=== PATIENT | male | born 1980 | race Caucasian/White ===

== ENCOUNTER 2018-11-07 18:36 | Inpatient (IN) | payer OTHER ==
[~2018-11-07] VITALS: Ht 157.5 cm; Wt 76.9 kg
[2018-11-07 22:45] VITALS: BP 109/59; PULSE 72; Ht 157.5 cm; Wt 76.9 kg
[2018-11-07] MEDS ORDERED: SOD CHLORIDE 0.9% 1,000 ML IV SCH (23:30)
[2018-11-07] MEDS ORDERED: ONDANSETRON 4 MG INJ IV PRN (23:30)
[2018-11-07] MEDS ORDERED: FLUD0.1T10 PO (23:56)
[2018-11-07] MEDS ORDERED: A VITE PO (23:56)
[2018-11-07] MEDS ORDERED: PRED25 PO (23:56)
[2018-11-07] MEDS ORDERED: LACT20SO2 PO (23:56)
[2018-11-07] MEDS ORDERED: DIVA-16 PO (23:56)
[2018-11-07] MEDS ORDERED: LEVO75TA5 PO (23:56)
[2018-11-07] MEDS ORDERED: BENZ1TAB7 PO (23:56)
[2018-11-07] MEDS ORDERED: DOCU-159 PO (23:56)
[2018-11-07] MEDS ORDERED: OLAN15TA7 PO (23:56)
[2018-11-07] MEDS ORDERED: IRON PO (23:56)
[2018-11-07] MEDS ORDERED: TESTOSTERONE 1% TRANSDERM (23:56)
[2018-11-08] VITALS (9 sets, daily range): BP systolic 113–132; BP diastolic 76–90; PULSE 79–102; RESP 18–19
[2018-11-08] MEDS ORDERED: VANCOMYCIN IV PER PHARMACY XX SCH (00:30)
[2018-11-08] MEDS ORDERED: VANCOMYCIN HCL 1.5 GM in SOD CHLORIDE 0.9% 250 ML IVPB SCH (03:00)
[2018-11-08] MEDS ORDERED: VANCOMYCIN 1 GM 250 ML IVPB SCH (03:00)
[2018-11-08] MEDS ORDERED: DIVA500T15 PO (04:47)
[2018-11-08] MEDS ORDERED: PIPER-TAZO 3.375 GM IV (PMX) 100 ML IVPB SCH (06:00)
[2018-11-08] MEDS: PANTOPRAZOLE 40 MG INJ IV SCH (06:31)
[2018-11-08] MEDS: LEVOTHYROXINE 75 MCG TAB PO SCH (06:33)
[2018-11-08] MEDS ORDERED: OLANZAPINE 5 MG TAB PO SCH (09:00)
[2018-11-08] MEDS: TESTOSTERONE 1% GEL 5 GM PACKET TOP SCH (09:00)
[2018-11-08] MEDS ORDERED: predniSONE 2.5 MG TAB PO SCH (09:00)
[2018-11-08] MEDS: DIVALPROEX (EC) 500 MG TAB PO SCH ×2 (09:03→23:07)
[2018-11-08] MEDS: FLUDROCORTISONE 0.1 MG TAB PO SCH (09:03)
[2018-11-08] MEDS: DOCUSATE SODIUM 100 MG CAP PO SCH (09:04)
[2018-11-08] MEDS: BENZTROPINE 1 MG TAB PO SCH ×2 (09:04→23:07)
[2018-11-08] MEDS ORDERED: POTASSIUM CHLORIDE (SR) 20 MEQ TAB PO STA ×2 (09:16→12:39)
--- NOTE | 2018-11-08 12:42 | QN ---
Documentation Comment seen and examined VESNA SERNA MD Nov 08, 2018 12:42
--- NOTE | 2018-11-08 12:47 | QN ---
Documentation Comment pt ruefusing iv very belligerent VESNA SERNA MD Nov 08, 2018 12:47
[2018-11-08] MEDS: CEPHALEXIN 250 MG CAP PO SCH ×2 (13:59→23:08)
--- NOTE | 2018-11-08 14:36 | HP ---
DATE OF ADMISSION: 11/07/2018 REASON FOR ADMISSION: Transferred from [facility] secondary to hypotension. HISTORY OF PRESENTING ILLNESS: This is a 38-year-old male with a past medical history of development al delay and mental retardation, schizoaffective disorder as well as bipolar disorder. 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 The patient was admitted in [facility] ostal somewhere in 10/2018 secondary to NAOMI, UTI. The patient was discharged home with p.o. antibi otics; however the patient returned to [facility] as he was tachycardic with a low blood pre ssure and there was concern the patient has addisonian crisis. The patient was treated with IV hydro cortisone and blood pressure stabilized. He was also hypokalemic on admission and was transferred to [facility] due to insurance reasons. Currently, the patient has been very bellige rent, not answering any questions. The patient was noted to have creatinine of 1.16 on 11/06/2018 an d received vancomycin and Zosyn. PAST MEDICAL HISTORY: 1. Developmental delay. 2. Mental retardation. 3. Schizoaffective disorder. 4. Giovanni disease. 5. Bipolar disorder. 6. Hypothyroidism. 7. Urinary retention. ALLERGIES: NONE. PAST SURGICAL HISTORY: None. MEDICATIONS TAKING AT HOME: 1. Benztropine 1 mg b.i.d. 2. Valproate 500 b.i.d. 3. Olanzapine 10 b.i.d. 4. Lactulose 45. 5. Colace. 6. Fludrocortisone 0.1. 7. Levothyroxine 75. 8. Prednisone 5. 9. Testosterone 50 mg transdermal. SOCIAL HISTORY: No history of smoking, alcohol or any drug use. Currently lives in a home in [facility]. He also has a family who is actively involved. FAMILY HISTORY: Noncontributory. REVIEW OF SYSTEMS: The patient currently denies any abdominal pain, nausea, vomiting, diarrhea. Den ied any chest pain, any shortness of breath. The patient has not urinated since this morning. Denie s any hematemesis, any melena or any bright red blood per rectum. PHYSICAL EXAMINATION: VITAL SIGNS: Currently, blood pressure 132/77, temperature 99.2, heart rate 81, respirations 18. GENERAL: The patient is awake, alert; however has been refusing to do the exam. The patient has bee n belligerent and he is using F words and bitch words. The patient refused me to examine him. LABORATORY DATA: Showed sodium 148, potassium 3.3, chloride 106, bicarbonate 20, BUN of 23, creatini ne 2.15, glucose 143. White count of 13.1, hemoglobin 13.4, platelet count 196. UA is currently neg ative. ASSESSMENT AND PLAN: A 38-year-old male with: 1. Hypotension, tachycardia, could be secondary to sepsis secondary to urinary tract infection, rule out adrenal addisonian crisis. 2. Leukocytosis. 3. Acute renal failure, likely secondary to combination of obstruction since the patient has not uri nated/combination of prerenal/the patient was given antibiotic, vancomycin and Zosyn. 4. Hypokalemia. 5. Metabolic acidosis. 6. History of schizophrenia. 7. History of developmental delay. 8. Mental retardation. PLAN: At this period of time, the patient is admitted to telemetry; however, the patient has been re fusing all the medications. We will hold vancomycin and Zosyn currently due to renal toxicity. The patient was advised to have Ramirez catheter, but patient has been refusing. We will continue the irma ent on fludrocortisone, prednisone and levothyroxine. We will also call the endocrine consultation. Rest of the treatment will depend on the patient's hospitalization course. Dictated By: VESNA WOLF/MOOSE Conf#: [id number] DID#: [id number] CC: HANK KAISER MD;*EndCC*
--- NOTE | 2018-11-08 15:50 | PSY ---
Date/Time of Note Date/Time of Note DATE: 11/08/18 TIME: 15:48 Psychiatric Subjective Eval Consent Pt consented to telemedicine: No Subjective Evaluation Patient location: inpatient History of present illness Patient is a 38-year-old male with a past medical history of developmental delay and mental retardation, admitted to the hospital for nausea vomiting. On a [id number] evaluation condition, patient is very agitated using obscenities he is screaming he is yelling difficult to redirect. patient threw a phone set up and charger at the interviewer yelling "get out of my room, get out of my room, I will F u". Patient has poor impulse control and poor coping skills, difficult to redirect. Verbal de-escalation ineffective. Explained risk and benefits of me dication but patient cannot process information Past psychiatric history Long history of mental illness Hospitalization: other Allergies: Coded Allergies: No Known Allergy (Unverified , 11/08/18) Substance Abuse Substance abuse history: No Prior substance abuse treatmen: No Social History Marital status: other DPA/Conservatorship: No Psychiatric Objective Eval Review of Systems: Review of Systems: Not Applicable Physical Examination: Physical Examination: Not Applicable Appetite: Adequate Energy: Adequate Interest: Adequate Mental Status Examination: Appearance: Disheveled Eye Contact: Fair Psychomotor Activity: Agitated Behavior: Hostile Speech: Loud AFFECT: Anxious Mood: Irritable Though Process: Linear Thought Content: Normal Orientation: x4 Insight: Severe Judgement: Severe Attention Span: Distractible Laboratory Results Laboratory Tests Test 11/08/18 00:30 11/08/18 00:45 Urine Color YELLOW Urine Clarity CLEAR Urine pH 5.0 Urine Specific [place] 1.012 Urine Ketones NEGATIVE mg/dL Urine Nitrite NEGATIVE mg/dL Urine Bilirubin NEGATIVE mg/dL Urine Urobilinogen NEGATIVE mg/dL Urine Leukocyte Esterase NEGATIVE Lucretia/ul Urine Microscopic RBC 4 /HPF Urine Microscopic WBC 2 /HPF Urine Hemoglobin NEGATIVE mg/dL Urine Glucose 1+ mg/dL Urine Total Protein 1+ mg/dl White Blood Count 13.1 10^3/ul Red Blood Count 3.68 10^6/ul Hemoglobin 11.4 g/dl Hematocrit 34.3 % Mean Corpuscular Volume 93.2 fl Mean Corpuscular Hemoglobin 31.0 pg Mean Corpuscular Hemoglobin Concent 33.2 g/dl Red Cell Distribution Width 12.2 % Platelet Count 196 10^3/UL Mean Platelet Volume 10.8 fl Immature Granulocytes % 0.600 % Neutrophils % 86.0 % Lymphocytes % 6.5 % Monocytes % 6.7 % Eosinophils % 0.0 % Basophils % 0.2 % Nucleated Red Blood Cells % 0.0 /100WBC Immature Granulocytes # 0.080 10^3/ul Neutrophils # 11.3 10^3/ul Lymphocytes # 0.9 10^3/ul Monocytes # 0.9 10^3/ul Eosinophils # 0.0 10^3/ul Basophils # 0.0 10^3/ul Nucleated Red Blood Cells # 0.0 10^3/ul Sodium Level 148 mmol/L Potassium Level 3.3 mmol/L Chloride Level 116 mmol/L Carbon Dioxide Level 20 mmol/L Anion Gap 12 Blood Urea Nitrogen 23 mg/dl Creatinine 2.15 mg/dl Est Glomerular Filtrat Rate mL/min 35 mL/min Glucose Level 143 mg/dl Calcium Level 9.6 mg/dl Assessment and Plan Assessment/Diagnosis Diagnosis Schizoaffective disorder bipolar type Recommendation/Plan Medication Management Continue current medications, increase Zyprexa from 10 mg to 50 mg, continue Depakote 500 mg twice a day, benztropine 1 mg daily, Thorazine 50 mg every 6 hours as needed agitation Psychotherapy Provide supportive therapy Discharge Disposition: Other Legal Status: Voluntary (Does not meets criteria for 5150 hold) WAYNE AARON NP Nov 08, 2018 15:50
--- NOTE | 2018-11-08 19:59 | CONS ---
DATE OF ADMISSION: 11/07/2018 DATE OF CONSULTATION: 11/08/2018 TYPE OF CONSULTATION: Infectious disease. REASON FOR CONSULTATION: Antibiotic management. HISTORY OF PRESENT ILLNESS: Tavo Fisher is a 38-year-old male transferred from [facility] with hypotension. His past problems include: 1. History of developmental delay and mental retardation. 2. Schizoaffective disorder as well as bipolar disorder. 3. 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 He was seen and admitted in 10/2018 to [facility] with acute marla al insufficiency and discharged on p.o. antibiotics. He was tachycardic, had low blood pressure when he came back to [place] and was in addisonian crisis. The patient was treated with IV hydrocorti sone. Blood pressure stabilized. He was hypokalemic and was transferred to [facility]. Th e patient has been belligerent, not answering questions. He has received vancomycin and Zosyn. The patient also has urinary retention. PAST MEDICAL HISTORY: Operations as outlined. FAMILY HISTORY: Noncontributory. SOCIAL HISTORY: He lives at home in [place]. FAMILY HISTORY: Noncontributory. SOCIAL HISTORY: He does not smoke, drink or abuse drugs. ALLERGIES: NONE TO PENICILLIN, SULFA OR FOODS. MEDICATIONS: Per chart. REVIEW OF SYSTEMS: As per HPI. PHYSICAL EXAMINATION: GENERAL: The patient is a 38-year-old male. VITAL SIGNS: Stable. He is afebrile. SKIN: Without generalized rash. HEENT: Within normal limits. NECK: Supple. LYMPH NODES: None palpable. CHEST: Decreased breath sounds at the bases. HEART: Without murmur or gallop. ABDOMEN: Soft, nontender. EXTREMITIES: Without cyanosis, clubbing or edema. RECTAL AND GENITAL: Deferred. NEUROLOGIC: The patient is belligerent, difficult to evaluate. ANCILLARY LABORATORY DATA: His white count is 13.1, hemoglobin 13.4, platelet count 196. Urinalysis is negative. BUN and creatinine is 23/2.15. IMPRESSION AND PLAN: Currently, the patient is hypotensive, tachycardic, probably septic. His urine is negative for nitrite and leukocyte esterase. Imaging studies: Low lung volumes, bibasilar airsp vielka opacities representing atelectasis or pneumonia, small left pleural effusion. We will continue h im on current therapy and await results of cultures. I will dictate my findings to Dr. Acevedo. Dictated By: HANK KAISER MD, JD/MOOSE Conf#: [id number] DID#: [id number] CC: VESNA ACEVEDO;*EndCC*
[2018-11-08] MEDS: OLANZAPINE 5 MG TAB PO SCH (23:07)
[2018-11-09] MEDS ORDERED: VANCOMYCIN 1 GM 250 ML IVPB SCH (03:00)
[2018-11-09] MEDS: PANTOPRAZOLE 40 MG INJ IV SCH (05:03)
[2018-11-09] MEDS: CEPHALEXIN 250 MG CAP PO SCH ×2 (05:43→14:00)
[2018-11-09] MEDS: LEVOTHYROXINE 75 MCG TAB PO SCH (07:00)
[2018-11-09] MEDS: TESTOSTERONE 1% GEL 5 GM PACKET TOP SCH (09:00)
[2018-11-09] MEDS: DOCUSATE SODIUM 100 MG CAP PO SCH (11:31)
[2018-11-09] MEDS: BENZTROPINE 1 MG TAB PO SCH ×2 (11:31→21:16)
[2018-11-09] MEDS: predniSONE 5 MG TAB PO SCH (11:31)
[2018-11-09] MEDS: DIVALPROEX (EC) 500 MG TAB PO SCH ×2 (11:31→21:16)
[2018-11-09] MEDS: FLUDROCORTISONE 0.1 MG TAB PO SCH (11:31)
[2018-11-09 11:53] VITALS: BP 124/83; PULSE 105
[2018-11-09] MEDS: ACETAMINOPHEN 325 MG TAB PO PRN (12:00)
[2018-11-09] MEDS: OLANZAPINE 5 MG TAB PO SCH ×2 (12:19→22:15)
[2018-11-09 14:00] VITALS: BP 144/86; PULSE 86; RESP 20
--- NOTE | 2018-11-09 16:18 | CONS ---
Assessment/Plan Assessment/Plan Hospital Course (Demo Recall) Patient is sleeping, looks comfortable, had fever of 100.8 this afternoon. WBC yesterday 13.1 with neutrophils 86 BUN 23 creatinine 2.15 Urinalysis was negative for leukocyte Estrace or nitrite Blood cultures negative urine culture consistent with contaminant Chest x-ray on admission revealed bibasilar airspace RTAS opacities representing atelectasis or pneumonia with small right pleural effusion Antimicrobials: Keflex Physical examination: Chronically ill-appearing middle-aged man in no distress head atraumatic normocephalic neck is supple chest rise symmetrical breath sounds diminished bases heart S1-S2 abdomen distended, bowel sounds present extremities with bilateral lower extremities edema Assessment: 1. Sepsis, present on admission 2. Pneumonia 3. Acute renal failure, possibly retention 4. Schizophrenia 5. Mental retardation 6. Medical noncompliance Plan: Patient refused IV access establishment, refusing bladder scan and is not urinating. We will will discontinue Keflex and start him on Augmentin and doxycycline, follow psychiatric recommendations. Patient will benefit from Ramirez placement and IV antibiotics Consultation Date/Type/Reason Admit Date/Time Nov 07, 2018 at 22:29 Initial Consult Date Type of Consult id Date/Time of Note DATE: 11/09/18 TIME: 16:18 Exam/Review of Systems Exam Vitals Vital Signs Date Temp Pulse Resp B/P (MAP) Pulse Ox O2 O2 Flow FiO2 Time Delivery Rate 11/09/18 100.8 105 124/83 99 Room Air 11:53 (97) 11/08/18 19 20:00 Intake and Output 11/08/18 11/08/18 11/09/18 1515:00 23:00 07:00 IntakeIntake Total 800 ml 750 ml OutputOutput Total 800 ml BalanceBalance 800 ml -50 ml Results Result Diagram: 11/08/18 0045 11/08/18 0045 Medications Medication Current Medications Benztropine Mesylate (Cogentin) 1 mg BID PO Last administered on 11/09/18at 11:31; Admin Dose 1 MG; Start 11/08/18 at 09:00 Divalproex Sodium (Depakote) 500 mg BID PO Last administered on 11/09/18at 11:31; Admin Dose 500 MG; Start 11/08/18 at 09:00 Docusate Sodium (Colace) 250 mg DAILY PO Last administered on 11/09/18 11:31; Admin Dose 250 MG; Start 11/08/18 at 09:00 Fludrocortisone Acetate (Florinef) 0.1 mg DAILY PO Last administered on 11/09/18 11:31; Admin Dose 0.1 MG; Start 11/08/18 at 09:00 Levothyroxine Sodium (Synthroid) 75 mcg BEFORE BREAKFAST PO Last administered on 11/08/18 06:33; Admin Dose 75 MCG; Start 11/08/18 at 07:00 Testosterone (Androgel) 5 gm DAILY TOP ; Start 11/08/18 at 09:00 Acetaminophen (Tylenol Tab) 650 mg Q6H PRN PO MILD PAIN(1-3)OR ELEVATED TEMP; Start 11/07/18 at 23:30 Ondansetron HCl (Zofran Inj) 4 mg Q6H PRN IV NAUSEA AND/OR VOMITING; Start 11/07/18 at 23:30 Cephalexin (Keflex) 250 mg Q8 PO Last administered on 11/09/18 14:00; Admin Dose 250 MG; Start 11/08/18 at 14:00 Olanzapine (Zyprexa) 15 mg BID PO Last administered on 11/09/18 12:19; Admin Dose 15 MG; Start 11/08/18 at 21:00 Chlorpromazine (Thorazine) 50 mg Q6 PRN IM AGITATION; Start 11/08/18 at 16:00 Prednisone (Prednisone) 5 mg DAILY PO Last administered on 11/09/18 11:31; Admin Dose 5 MG; Start 11/09/18 at 10:30 Pantoprazole (Protonix Tab) 40 mg DAILY@06 PO ; Start 11/10/18 at 06:00 RENO KAYE NP Nov 09, 2018 16:18
--- NOTE | 2018-11-09 16:37 | PN ---
Date/Time of Note Date/Time of Note DATE: 11/09/18 TIME: 16:37 Assessment/Plan VTE Prophylaxis Risk score (from Ns)>0 risk: 2 SCD applied (from [facility]): No SCD contraindicated: low risk/ambulating Pharmacological prophylaxis: NA/contraindicated Pharm contraindication: low risk/ambulating Lines/Catheters IV C[facility]ter Type (from [facility]): Peripheral IV Assessment/Plan Assessment/Plan 38-year-old male with: 1. Hypotension, tachycardia, could be secondary to sepsis secondary to urinary tract infection,/pneumonia 2. Leukocytosis> improved. 3. Acute renal failure, likely secondary to combination of obstruction since the patient has not urinated/combination of prerenal/post the patient was given antibiotic, vancomycin and Zosyn. 4. Hypokalemia. 5. Metabolic acidosis. 6. History of schizophrenia. 7. History of developmental delay. 8. Mental retardation. Plan - Spoke to mother to talk to patient about compliance as refusing treatment - will start with po abx meanwhile per ID - IV fluids also refused - stat Zuñiga - Recheck labs> pt has been refusing - pscy meds per Pscy - GI/DVT PROPHYLAXSIS Result Diagram: 11/08/18 0045 11/08/18 0045 Subjective 24 Hr Interval Summary Free Text/Dictation pt refusing zuñiga abdominal distension pt was very belligernt yesterday, using bad words fevers 100.1 Exam/Review of Systems Exam Vitals Vital Signs Date Temp Pulse Resp B/P (MAP) Pulse Ox O2 O2 Flow FiO2 Time Delivery Rate 11/09/18 100.8 105 124/83 99 Room Air 11:53 (97) 11/08/18 19 20:00 Intake and Output 11/08/18 11/08/18 11/09/18 1515:00 23:00 07:00 IntakeIntake Total 800 ml 750 ml OutputOutput Total 800 ml BalanceBalance 800 ml -50 ml Exam refused exam Medications Medication Current Medications Benztropine Mesylate (Cogentin) 1 mg BID PO Last administered on 11/09/18at 11:31; Admin Dose 1 MG; Start 11/08/18 at 09:00 Divalproex Sodium (Depakote) 500 mg BID PO Last administered on 11/09/18at 11:31; Admin Dose 500 MG; Start 11/08/18 at 09:00 Docusate Sodium (Colace) 250 mg DAILY PO Last administered on 11/09/18 11:31; Admin Dose 250 MG; Start 11/08/18 at 09:00 Fludrocortisone Acetate (Florinef) 0.1 mg DAILY PO Last administered on 11/09/18 11:31; Admin Dose 0.1 MG; Start 11/08/18 at 09:00 Levothyroxine Sodium (Synthroid) 75 mcg BEFORE BREAKFAST PO Last administered on 11/08/18 06:33; Admin Dose 75 MCG; Start 11/08/18 at 07:00 Testosterone (Androgel) 5 gm DAILY TOP ; Start 11/08/18 at 09:00 Acetaminophen (Tylenol Tab) 650 mg Q6H PRN PO MILD PAIN(1-3)OR ELEVATED TEMP; Start 11/07/18 at 23:30 Ondansetron HCl (Zofran Inj) 4 mg Q6H PRN IV NAUSEA AND/OR VOMITING; Start 11/07/18 at 23:30 Olanzapine (Zyprexa) 15 mg BID PO Last administered on 11/09/18 12:19; Admin Dose 15 MG; Start 11/08/18 at 21:00 Chlorpromazine (Thorazine) 50 mg Q6 PRN IM AGITATION; Start 11/08/18 at 16:00 Prednisone (Prednisone) 5 mg DAILY PO Last administered on 11/09/18 11:31; Admin Dose 5 MG; Start 11/09/18 at 10:30 Pantoprazole (Protonix Tab) 40 mg DAILY@06 PO ; Start 11/10/18 at 06:00 Amoxicillin/ Clavulanate Potassium (Augmentin) 500 mg BID PO ; Start 11/09/18 at 21:00 Doxycycline Hyclate (Vibramycin) 100 mg BID PO ; Start 11/09/18 at 21:00 VESNA SERNA MD Nov 09, 2018 16:37
[2018-11-09 20:26] VITALS: BP 131/83; PULSE 98; RESP 19
[2018-11-09] MEDS: AMOXICILLIN/CLAV 500 MG TAB PO SCH (21:15)
[2018-11-09] MEDS: DOXYCYCLINE 100 MG TAB PO SCH (21:16)
[2018-11-10 02:00] VITALS: BP_SYST 133; BP_SYST 135; BP_DIAS 68; BP_DIAS 76; PULSE 85; PULSE 94; RESP 18
[2018-11-10] MEDS: LEVOTHYROXINE 75 MCG TAB PO SCH (06:18)
[2018-11-10] MEDS: PANTOPRAZOLE (EC) 40 MG TAB PO SCH (06:18)
[2018-11-10] MEDS ORDERED: POTASSIUM CHLORIDE (SR) 20 MEQ TAB PO ONE (06:56)
[2018-11-10 08:09] VITALS: BP 133/86; PULSE 105; RESP 24
[2018-11-10] MEDS: DIVALPROEX (EC) 500 MG TAB PO SCH ×3 (08:38→21:31)
[2018-11-10] MEDS: DOXYCYCLINE 100 MG TAB PO SCH (08:38)
[2018-11-10] MEDS: DOCUSATE SODIUM 100 MG CAP PO SCH ×2 (08:38→09:00)
[2018-11-10] MEDS: BENZTROPINE 1 MG TAB PO SCH ×3 (08:39→21:31)
[2018-11-10] MEDS: AMOXICILLIN/CLAV 500 MG TAB PO SCH (08:39)
[2018-11-10] MEDS: predniSONE 5 MG TAB PO SCH (08:39)
[2018-11-10] MEDS: OLANZAPINE 5 MG TAB PO SCH ×3 (08:39→21:31)
[2018-11-10] MEDS ORDERED: predniSONE 5 MG TAB PO SCH (09:00)
[2018-11-10] MEDS: TESTOSTERONE 1% GEL 5 GM PACKET TOP SCH (09:38)
[2018-11-10] MEDS: FLUDROCORTISONE 0.1 MG TAB PO SCH (09:38)
[2018-11-10] MEDS: ACETAMINOPHEN 325 MG TAB PO PRN (09:38)
[2018-11-10] MEDS ORDERED: SOD CHLORIDE 0.9% 500 ML IV ONE (10:00)
[2018-11-10] MEDS ORDERED: DEXTROSE 5% 1,000 ML IV SCH (10:00)
[2018-11-10] MEDS: CHLORPROMAZINE 25 MG INJ IM PRN (10:54)
--- NOTE | 2018-11-10 13:15 | CONS ---
Assessment/Plan Assessment/Plan Hospital Course (Demo Recall) Patient has IV line established, he is getting IV fluids, still spiking fevers with a T-max of 102.2 this morning. He is urinating. WBC today 6.7 no shift no bands BUN 23 creatinine 3.17. Blood cultures since admission negative. Chest x-ray on admission revealed bibasilar airspace RTAS opacities representing atelectasis or pneumonia with small right pleural effusion Antimicrobials: Keflex Physical examination: Chronically ill-appearing middle-aged man in no distress head atraumatic normocephalic neck is supple chest rise symmetrical breath sounds diminished bases heart S1-S2 abdomen distended, bowel sounds present extremities with bilateral lower extremities edema Assessment: 1. Sepsis, present on admission 2. Pneumonia 3. Acute renal failure, possibly retention 4. Schizophrenia 5. Mental retardation 6. Medical noncompliance Plan: We will change antibiotics to vancomycin and meropenem, but will try to send urine culture, order chest x-ray in a.m. Consultation Date/Type/Reason Admit Date/Time Nov 07, 2018 at 22:29 Initial Consult Date Type of Consult id Date/Time of Note DATE: 11/10/18 TIME: 13:14 Exam/Review of Systems Exam Vitals Vital Signs Date Temp Pulse Resp B/P (MAP) Pulse Ox O2 O2 Flow FiO2 Time Delivery Rate 11/10/18 102.2 09:38 11/10/18 105 24 133/86 93 08:09 (102) 11/09/18 Room Air 11:53 Intake and Output 11/09/18 11/09/18 11/10/18 1515:00 23:00 07:00 IntakeIntake Total 480 ml 118 ml OutputOutput Total 150 ml 650 ml BalanceBalance 480 ml -150 ml -532 ml Results Result Diagram: 11/10/18 0433 11/10/18 0433 Results 24hrs Laboratory Tests Test 11/09/18 21:58 11/10/18 04:33 Sodium Level 149 H 150 H Potassium Level 3.5 2.9 *L Chloride Level 113 H 120 H Carbon Dioxide Level 22 21 Anion Gap 14 H 9 # Blood Urea Nitrogen 22 H 23 H Creatinine 3.25 #H 3.17 H Est Glomerular Filtrat Rate mL/min 22 L 22 L Glucose Level 92 # 101 Calcium Level 8.9 9.0 White Blood Count 6.7 # Red Blood Count 3.27 L Hemoglobin 10.3 L Hematocrit 31.9 L Mean Corpuscular Volume 97.6 Mean Corpuscular Hemoglobin 31.5 Mean Corpuscular Hemoglobin Concent 32.3 Red Cell Distribution Width 12.4 Platelet Count 159 Mean Platelet Volume 10.3 Immature Granulocytes % 0.300 Neutrophils % 59.7 Lymphocytes % 25.5 Monocytes % 13.8 H Eosinophils % 0.4 Basophils % 0.3 Nucleated Red Blood Cells % 0.0 Immature Granulocytes # 0.020 Neutrophils # 4.0 Lymphocytes # 1.7 Monocytes # 0.9 Eosinophils # 0.0 Basophils # 0.0 Nucleated Red Blood Cells # 0.0 Phosphorus Level 3.9 Magnesium Level 1.9 Medications Medication Current Medications Benztropine Mesylate (Cogentin) 1 mg BID PO Last administered on 11/10/18 08:39; Admin Dose 1 MG; Start 11/08/18 at 09:00 Divalproex Sodium (Depakote) 500 mg BID PO Last administered on 11/10/18 08:38; Admin Dose 500 MG; Start 11/08/18 at 09:00 Docusate Sodium (Colace) 250 mg DAILY PO Last administered on 11/10/18 08:38; Admin Dose 250 MG; Start 11/08/18 at 09:00 Fludrocortisone Acetate (Florinef) 0.1 mg DAILY PO Last administered on 11/10/18 09:38; Admin Dose 0.1 MG; Start 11/08/18 at 09:00 Levothyroxine Sodium (Synthroid) 75 mcg BEFORE BREAKFAST PO Last administered on 11/10/18 06:18; Admin Dose 75 MCG; Start 11/08/18 at 07:00 Testosterone (Androgel) 5 gm DAILY TOP Last administered on 11/10/18 09:38; Admin Dose 5 GM; Start 11/08/18 at 09:00 Acetaminophen (Tylenol Tab) 650 mg Q6H PRN PO MILD PAIN(1-3)OR ELEVATED TEMP Last administered on 11/10/18 09:38; Admin Dose 650 MG; Start 11/07/18 at 23:30 Ondansetron HCl (Zofran Inj) 4 mg Q6H PRN IV NAUSEA AND/OR VOMITING Last administered on 11/10/18 13:04; Admin Dose 4 MG; Start 11/07/18 at 23:30 Olanzapine (Zyprexa) 15 mg BID PO Last administered on 11/10/18 08:39; Admin Dose 15 MG; Start 11/08/18 at 21:00 Chlorpromazine (Thorazine) 50 mg Q6 PRN IM AGITATION Last administered on 11/10/18at 10:54; Admin Dose 50 MG; Start 11/08/18 at 16:00 Prednisone (Prednisone) 5 mg DAILY PO Last administered on 11/10/18at 08:39; Admin Dose 5 MG; Start 11/09/18 at 10:30 Pantoprazole (Protonix Tab) 40 mg DAILY@06 PO Last administered on 11/10/18 06:18; Admin Dose 40 MG; Start 11/10/18 at 06:00 Amoxicillin/ Clavulanate Potassium (Augmentin) 500 mg BID PO Last administered on 11/10/18at 08:39; Admin Dose 500 MG; Start 11/09/18 at 21:00 Doxycycline Hyclate (Vibramycin) 100 mg BID PO Last administered on 11/10/18at 08:38; Admin Dose 100 MG; Start 11/09/18 at 21:00 Dextrose 1,000 ml @ 70 mls/hr [id number] IV ; Start 11/10/18 at 10:00 RENO KAYE NP Nov 10, 2018 13:15
[2018-11-10] MEDS ORDERED: VANCOMYCIN IV PER PHARMACY XX SCH (13:30)
[2018-11-10] MEDS ORDERED: VANCOMYCIN HCL 1.5 GM in SOD CHLORIDE 0.9% 250 ML IVPB SCH (14:30)
[2018-11-10] MEDS: MEROPENEM 500MG/50 ML (PMX) 50 ML IVPB SCH ×2 (14:41→21:31)
[2018-11-10] MEDS ORDERED: POTASSIUM CHLORIDE (SR) 20 MEQ TAB PO STA (16:24)
--- NOTE | 2018-11-10 16:41 | PN ---
Date/Time of Note Date/Time of Note DATE: 11/10/18 TIME: 16:37 Assessment/Plan VTE Prophylaxis Risk score (from Ns)>0 risk: 3 SCD applied (from [facility] [place]): No SCD contraindicated: low risk/ambulating Pharmacological prophylaxis: NA/contraindicated Pharm contraindication: low risk/ambulating Lines/Catheters IV C[facility]ter Type (from [facility]): Peripheral IV Urinary Cath still in place: Yes Reason Cath still needed: urinary retention Assessment/Plan Hospital Course 38-year-old male with: 1. Hypotension, tachycardia, could be secondary to sepsis secondary to urinary tract infection,/pneumonia 2. Leukocytosis> improved. 3. Acute renal failure, likely secondary to combination of obstruction since the patient has not urinated/combination of prerenal/post the patient was given antibiotic, vancomycin and Zosyn. 4. Hypokalemia. 5. Metabolic acidosis. 6. History of schizophrenia. 7. History of developmental delay. 8. Mental retardation. 9 HX ariadna 10 Hypernatremia likely hypovolemic /on fludricortisone 11 Hypokalemia with diarrhoea Plan - Spoke to mother to talk to patient about compliance as refusing treatment, mother at bedside now, electrical maintenance worker also from facility present, tryinto convince pt - po kcl - iv d5 after k given - iv abx per ID - Bld vcx - Ramirez - Endocrine consult - pscy meds per Pscy - GI/DVT PROPHYLAXSIS Result Diagram: Result Diagram: 11/10/18 0433 11/10/18 0433 Results 24hrs Laboratory Tests Test 11/09/18 21:58 11/10/18 04:33 Sodium Level 149 H 150 H Potassium Level 3.5 2.9 *L Chloride Level 113 H 120 H Carbon Dioxide Level 22 21 Anion Gap 14 H 9 # Blood Urea Nitrogen 22 H 23 H Creatinine 3.25 #H 3.17 H Est Glomerular Filtrat Rate mL/min 22 L 22 L Glucose Level 92 # 101 Calcium Level 8.9 9.0 White Blood Count 6.7 # Red Blood Count 3.27 L Hemoglobin 10.3 L Hematocrit 31.9 L Mean Corpuscular Volume 97.6 Mean Corpuscular Hemoglobin 31.5 Mean Corpuscular Hemoglobin Concent 32.3 Red Cell Distribution Width 12.4 Platelet Count 159 Mean Platelet Volume 10.3 Immature Granulocytes % 0.300 Neutrophils % 59.7 Lymphocytes % 25.5 Monocytes % 13.8 H Eosinophils % 0.4 Basophils % 0.3 Nucleated Red Blood Cells % 0.0 Immature Granulocytes # 0.020 Neutrophils # 4.0 Lymphocytes # 1.7 Monocytes # 0.9 Eosinophils # 0.0 Basophils # 0.0 Nucleated Red Blood Cells # 0.0 Phosphorus Level 3.9 Magnesium Level 1.9 Subjective 24 Hr Interval Summary Free Text/Dictation He was having fevers 102 this morning Ramirez was placed but according to the nurses did not have any urine output after questionable however then peed again this morning after Ramirez was removed Sodium trending up k 2.9 And finally agreed for IV fluids and iv abx Exam/Review of Systems Exam Vitals Vital Signs Date Temp Pulse Resp B/P (MAP) Pulse Ox O2 O2 Flow FiO2 Time Delivery Rate 11/10/18 99.5 10:25 11/10/18 105 24 133/86 93 08:09 (102) 11/09/18 Room Air 11:53 Intake and Output 11/09/18 11/09/18 11/10/18 1515:00 23:00 07:00 IntakeIntake Total 480 ml 118 ml OutputOutput Total 150 ml 650 ml BalanceBalance 480 ml -150 ml -532 ml Exam refused exam uses F words abdomen distended Results Results 24hrs Laboratory Tests Test 11/09/18 21:58 11/10/18 04:33 Sodium Level 149 H 150 H Potassium Level 3.5 2.9 *L Chloride Level 113 H 120 H Carbon Dioxide Level 22 21 Anion Gap 14 H 9 # Blood Urea Nitrogen 22 H 23 H Creatinine 3.25 #H 3.17 H Est Glomerular Filtrat Rate mL/min 22 L 22 L Glucose Level 92 # 101 Calcium Level 8.9 9.0 White Blood Count 6.7 # Red Blood Count 3.27 L Hemoglobin 10.3 L Hematocrit 31.9 L Mean Corpuscular Volume 97.6 Mean Corpuscular Hemoglobin 31.5 Mean Corpuscular Hemoglobin Concent 32.3 Red Cell Distribution Width 12.4 Platelet Count 159 Mean Platelet Volume 10.3 Immature Granulocytes % 0.300 Neutrophils % 59.7 Lymphocytes % 25.5 Monocytes % 13.8 H Eosinophils % 0.4 Basophils % 0.3 Nucleated Red Blood Cells % 0.0 Immature Granulocytes # 0.020 Neutrophils # 4.0 Lymphocytes # 1.7 Monocytes # 0.9 Eosinophils # 0.0 Basophils # 0.0 Nucleated Red Blood Cells # 0.0 Phosphorus Level 3.9 Magnesium Level 1.9 Medications Medication Current Medications Benztropine Mesylate (Cogentin) 1 mg BID PO Last administered on 11/10/18 08:39; Admin Dose 1 MG; Start 11/08/18 at 09:00 Divalproex Sodium (Depakote) 500 mg BID PO Last administered on 11/10/18 08:38; Admin Dose 500 MG; Start 11/08/18 at 09:00 Docusate Sodium (Colace) 250 mg DAILY PO Last administered on 11/09/18 11:31; Admin Dose 250 MG; Start 11/08/18 at 09:00 Levothyroxine Sodium (Synthroid) 75 mcg BEFORE BREAKFAST PO Last administered on 11/10/18 06:18; Admin Dose 75 MCG; Start 11/08/18 at 07:00 Testosterone (Androgel) 5 gm DAILY TOP Last administered on 11/10/18 09:38; Admin Dose 5 GM; Start 11/08/18 at 09:00 Acetaminophen (Tylenol Tab) 650 mg Q6H PRN PO MILD PAIN(1-3)OR ELEVATED TEMP Last administered on 11/10/18 09:38; Admin Dose 650 MG; Start 11/07/18 at 23:30 Ondansetron HCl (Zofran Inj) 4 mg Q6H PRN IV NAUSEA AND/OR VOMITING Last administered on 11/10/18 13:04; Admin Dose 4 MG; Start 11/07/18 at 23:30 Olanzapine (Zyprexa) 15 mg BID PO Last administered on 11/10/18 08:39; Admin Dose 15 MG; Start 11/08/18 at 21:00 Chlorpromazine (Thorazine) 50 mg Q6 PRN IM AGITATION Last administered on 11/10/18 10:54; Admin Dose 50 MG; Start 11/08/18 at 16:00 Prednisone (Prednisone) 5 mg DAILY PO Last administered on 11/10/18 08:39; Admi n Dose 5 MG; Start 11/09/18 at 10:30 Pantoprazole (Protonix Tab) 40 mg DAILY@06 PO Last administered on 11/10/18 06:18; Admin Dose 40 MG; Start 11/10/18 at 06:00 Dextrose 1,000 ml @ 70 mls/hr [id number] IV ; Start 11/10/18 at 10:00 Vancomycin HCl (Vanco Iv Per Pharmacy) VANCOMYCIN PER PHARMACY PER PROTOCOL XX ; Start 11/10/18 at 13:30 Meropenem/Sodium Chloride 50 ml @ 100 mls/hr Q12 IVPB Last administered on 11/10/18at 14:41; Admin Dose 100 MLS/HR; Start 11/10/18 at 13:30 Vancomycin HCl 1.5 gm/Sodium Chloride 250 ml @ 83.333 mls/ hr Q36H IVPB ; Start 11/10/18 at 14:30 VESNA SERNA MD Nov 10, 2018 16:41
--- NOTE | 2018-11-10 17:59 | CONS ---
Assessment/Plan Assessment/Plan Problems: (1) Adrenal insufficiency Status: Chronic Comment: Pt. should stop fludricortisone for now. Will monitor to see if needs to restart. W/ fever and tachycardia would increase prednisone from 5 mg/d to 7.5 mg qam, 2.5 mg qpm and monitor BP and HR. Monitor sodium, potassium, blood counts closely. 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 LT4 daily. Check TFT's. (3) Testicular hypofunction Status: Chronic Comment: Cont. daily topical testosterone replacement. Consultation Date/Type/Reason Admit Date/Time Nov 07, 2018 at 22:29 Date of Consultation: Nov 10, 2018 Type of Consult Endocrinology Reason for Consultation Adrenal Insufficiency Requesting Provider: VESNA SERNA MD Date/Time of Note DATE: 11/10/18 TIME: 17:51 Hx of Present Illness 38-year-old male with a past medical history of developmental delay and mental retardation, schizoaffective disorder as well as bipolar disorder. 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 The patient lives with a ibm mainframe developer. The patient was admitted in [facility] somewhere in 10/2018 secondary to NAOMI, UTI. The patient was discharged home with p.o. antibiotics; however the patient returned to [facility] as he was tachycardic with a low blood pressure and there was concern the patient has addisonian crisis. The patient was treated with IV hydrocortisone and blood pressure stabilized. Transferred to [facility]. Since transfer BP has been controlled but pt. has had tachycardia and fever. Prednisone continued orally at 5 mg/d as was fludricortisone. However, last several days sodium increasing and now was 150 mEq/dL and potassium falling and today was 2.9. [facility] d/c'ed and endo consulted. Subjective hx not possible: pt non-verbal (non-cooperative w/ exam or history) Past Medical History Medical History: hypothyroid, other (developmental delay and mental retardation, schizoaffective disorder as well as bipolar disorder, Giovanni disease, hypogonadism) Home Meds Reported Medications Divalproex Sodium* (Divalproex ER*) 500 Mg Tab.er.24h, 500 MG PO BID, #30 TAB.SA 11/08/18 [Tab-A-Davi/iron] No Conflict Check, PO DAILY for Supplement 11/07/18 [Testosterone gel 1%] No Conflict Check, 50 MG TRANSDERM DAILY for Abdomen area for adrenal insuf 11/07/18 Prednisone (Prednisone) 2.5 Mg Tab, 5 MG PO DAILY, TAB 11/07/18 Olanzapine* (Olanzapine*) 15 Mg Tablet, 10 MG PO BID, TAB 11/07/18 Levothyroxine Sodium* (Levothyroxine Sodium*) 75 Mcg Tablet, 75 MCG PO BEFORE B REAKFAST, #30 TAB 11/07/18 Lactulose* (Lactulose*) 20 Gm/30 Ml Solution, 45 ML PO DAILY, ML 11/07/18 Fludrocortisone* (Fludrocortisone*) 0.1 Mg Tablet, 0.1 MG PO DAILY, TAB 11/07/18 Docusate Sodium* (Docusate Sodium*) 100 Mg Capsule, 250 MG PO DAILY, #30 CAP 11/07/18 Benztropine Mesylate* (Benztropine Mesylate*) 1 Mg Tablet, 1 MG PO BID, TAB 11/07/18 Medications Current Medications Benztropine Mesylate (Cogentin) 1 mg BID PO Last administered on 11/10/18 08:39; Admin Dose 1 MG; Start 11/08/18 at 09:00 Divalproex Sodium (Depakote) 500 mg BID PO Last administered on 11/10/18 08:38; Admin Dose 500 MG; Start 11/08/18 at 09:00 Docusate Sodium (Colace) 250 mg DAILY PO Last administered on 11/09/18at 11:31; Admin Dose 250 MG; Start 11/08/18 at 09:00 Levothyroxine Sodium (Synthroid) 75 mcg BEFORE BREAKFAST PO Last administered on 11/10/18 06:18; Admin Dose 75 MCG; Start 11/08/18 at 07:00 Testosterone (Androgel) 5 gm DAILY TOP Last administered on 11/10/18 09:38; Admin Dose 5 GM; Start 11/08/18 at 09:00 Acetaminophen (Tylenol Tab) 650 mg Q6H PRN PO MILD PAIN(1-3)OR ELEVATED TEMP Last administered on 11/10/18 09:38; Admin Dose 650 MG; Start 11/07/18 at 23:30 Ondansetron HCl (Zofran Inj) 4 mg Q6H PRN IV NAUSEA AND/OR VOMITING Last administered on 11/10/18at 13:04; Admin Dose 4 MG; Start 11/07/18 at 23:30 Olanzapine (Zyprexa) 15 mg BID PO Last administered on 11/10/18at 08:39; Admin Dose 15 MG; Start 11/08/18 at 21:00 Chlorpromazine (Thorazine) 50 mg Q6 PRN IM AGITATION Last administered on 11/10/18at 10:54; Admin Dose 50 MG; Start 11/08/18 at 16:00 Prednisone (Prednisone) 5 mg DAILY PO Last administered on 11/10/18at 08:39; Admin Dose 5 MG; Start 11/09/18 at 10:30 Pantoprazole (Protonix Tab) 40 mg DAILY@06 PO Last administered on 11/10/18at 06:18; Admin Dose 40 MG; Start 11/10/18 at 06:00 Vancomycin HCl (Vanco Iv Per Pharmacy) VANCOMYCIN PER PHARMACY PER PROTOCOL XX ; Start 11/10/18 at 13:30 Meropenem/Sodium Chloride 50 ml @ 100 mls/hr Q12 IVPB Last administered on 11/10/18at 14:41; Admin Dose 100 MLS/HR; Start 11/10/18 at 13:30 Vancomycin HCl 1.5 gm/Sodium Chloride 250 ml @ 83.333 mls/ hr Q36H IVPB Last administered on 11/10/18at 16:22; Admin Dose 83.333 MLS/HR; Start 11/10/18 at 14:30 Potassium Chloride 40 meq/ Dextrose 1,020 ml @ 70 mls/hr [id number] IV ; Start 11/10/18 at 18:30 Allergies: Coded Allergies: No Known Allergy (Unverified , 11/08/18) Past Surgical History Past Surgical Hx: no surgical history Family History Significant Family History: no pertinent family hx Social History lives w/ family Alcohol Use: none Smoking Status: Never smoker Drug Use: none Exam/Review of Systems Exam Vitals VS - Last 72 Hours, by Label Date Temp Pulse Resp B/P (MAP) Pulse Ox O2 O2 Flow FiO2 Time Delivery Rate 11/10/18 99.5 10:25 11/10/18 102.2 09:38 11/10/18 102.2 105 24 133/86 93 08:09 (102) 11/10/18 97.8 94 18 135/76 96 02:00 (95) 11/09/18 97.3 98 19 131/83 94 20:26 (99) 11/09/18 99.1 86 20 144/86 96 14:00 (105) 11/09/18 100.8 105 124/83 99 Room Air 11:53 (97) 11/08/18 97.4 85 19 113/82 96 20:00 (92) 11/08/18 98.2 84 18 119/76 97 Room Air 17:45 (90) 11/08/18 102 16:46 11/08/18 79 12:42 11/08/18 99.2 81 18 132/77 93 Room Air 11:39 (95) 11/08/18 81 09:14 11/08/18 98.1 86 18 120/90 94 Room Air 07:10 (100) 11/08/18 82 04:00 11/08/18 97.6 88 18 113/80 97 Room Air 04:00 (91) 11/08/18 102 00:00 11/07/18 97.8 72 109/59 94 22:45 (76) Vital Signs Date Temp Pulse Resp B/P (MAP) Pulse Ox O2 O2 Flow FiO2 Time Delivery Rate 11/10/18 99.5 10:25 11/10/18 105 24 133/86 93 08:09 (102) 11/09/18 Room Air 11:53 Intake and Output 11/09/18 11/09/18 11/10/18 1414:59 22:59 06:59 IntakeIntake Total 480 ml 118 ml OutputOutput Total 150 ml 650 ml BalanceBalance 480 ml -150 ml -532 ml Constitutional: obese; No alert (sleeping), No oriented Respiratory: clear to auscultation, normal air movement Cardiovascular: regular rate and rhythm, nl pulses; No edema, No murmurs/extra sounds, No rub Gastrointestinal: soft, nl liver, spleen, non-tender, bowel sounds; No mass, No rebound or guarding Musculoskeletal: nl extremities to inspection Extremities: normal pulses; No cyanosis, No clubbing, No edema Neurological: lethargic Results Result Diagram: 11/10/18 0433 11/10/18 0433 Results 24hrs Laboratory Tests Test 11/09/18 21:58 11/10/18 04:33 Sodium Level 149 H 150 H Potassium Level 3.5 2.9 *L Chloride Level 113 H 120 H Carbon Dioxide Level 22 21 Anion Gap 14 H 9 # Blood Urea Nitrogen 22 H 23 H Creatinine 3.25 #H 3.17 H Est Glomerular Filtrat Rate mL/min 22 L 22 L Glucose Level 92 # 101 Calcium Level 8.9 9.0 White Blood Count 6.7 # Red Blood Count 3.27 L Hemoglobin 10.3 L Hematocrit 31.9 L Mean Corpuscular Volume 97.6 Mean Corpuscular Hemoglobin 31.5 Mean Corpuscular Hemoglobin Concent 32.3 Red Cell Distribution Width 12.4 Platelet Count 159 Mean Platelet Volume 10.3 Immature Granulocytes % 0.300 Neutrophils % 59.7 Lymphocytes % 25.5 Monocytes % 13.8 H Eosinophils % 0.4 Basophils % 0.3 Nucleated Red Blood Cells % 0.0 Immature Granulocytes # 0.020 Neutrophils # 4.0 Lymphocytes # 1.7 Monocytes # 0.9 Eosinophils # 0.0 Basophils # 0.0 Nucleated Red Blood Cells # 0.0 Phosphorus Level 3.9 Magnesium Level 1.9 Medications Medication Current Medications Benztropine Mesylate (Cogentin) 1 mg BID PO Last administered on 11/10/18 08:39; Admin Dose 1 MG; Start 11/08/18 at 09:00 Divalproex Sodium (Depakote) 500 mg BID PO Last administered on 11/10/18 08:38; Admin Dose 500 MG; Start 11/08/18 at 09:00 Docusate Sodium (Colace) 250 mg DAILY PO Last administered on 11/09/18 11:31; Admin Dose 250 MG; Start 11/08/18 at 09:00 Levothyroxine Sodium (Synthroid) 75 mcg BEFORE BREAKFAST PO Last administered on 11/10/18 06:18; Admin Dose 75 MCG; Start 11/08/18 at 07:00 Testosterone (Androgel) 5 gm DAILY TOP Last administered on 11/10/18 09:38; Admin Dose 5 GM; Start 11/08/18 at 09:00 Acetaminophen (Tylenol Tab) 650 mg Q6H PRN PO MILD PAIN(1-3)OR ELEVATED TEMP Last administered on 11/10/18 09:38; Admin Dose 650 MG; Start 11/07/18 at 23:30 Ondansetron HCl (Zofran Inj) 4 mg Q6H PRN IV NAUSEA AND/OR VOMITING Last administered on 11/10/18 13:04; Admin Dose 4 MG; Start 11/07/18 at 23:30 Olanzapine (Zyprexa) 15 mg BID PO Last administered on 11/10/18 08:39; Admin Dose 15 MG; Start 11/08/18 at 21:00 Chlorpromazine (Thorazine) 50 mg Q6 PRN IM AGITATION Last administered on 11/10/18 10:54; Admin Dose 50 MG; Start 11/08/18 at 16:00 Prednisone (Prednisone) 5 mg DAILY PO Last administered on 11/10/18 08:39; Admin Dose 5 MG; Start 11/09/18 at 10:30 Pantoprazole (Protonix Tab) 40 mg DAILY@06 PO Last administered on 11/10/18 06:18; Admin Dose 40 MG; Start 11/10/18 at 06:00 Vancomycin HCl (Vanco Iv Per Pharmacy) VANCOMYCIN PER PHARMACY PER PROTOCOL XX ; Start 11/10/18 at 13:30 Meropenem/Sodium Chloride 50 ml @ 100 mls/hr Q12 IVPB Last administered on 11/10/18 14:41; Admin Dose 100 MLS/HR; Start 11/10/18 at 13:30 Vancomycin HCl 1.5 gm/Sodium Chloride 250 ml @ 83.333 mls/ hr Q36H IVPB Last administered on 11/10/18 16:22; Admin Dose 83.333 MLS/HR; Start 11/10/18 at 14:30 Potassium Chloride 40 meq/ Dextrose 1,020 ml @ 70 mls/hr [id number] IV ; Start 11/10/18 at 18:30 RIP TOSCANO MD Nov 10, 2018 17:59
[2018-11-10] MEDS: predniSONE 2.5 MG TAB PO SCH ×2 (19:00→21:31)
[2018-11-10 20:16] VITALS: BP 130/84; PULSE 89; RESP 16
[2018-11-10] MEDS: POTASSIUM CHLORIDE 40 MEQ in DEXTROSE 5% 1,000 ML IV SCH (21:31)
[2018-11-11 02:06] VITALS: BP 120/71; PULSE 104; RESP 18
[2018-11-11] MEDS: PANTOPRAZOLE (EC) 40 MG TAB PO SCH (06:00)
[2018-11-11] MEDS: LEVOTHYROXINE 75 MCG TAB PO SCH (06:52)
[2018-11-11 07:58] VITALS: BP 119/60; PULSE 110; RESP 18
[2018-11-11] MEDS: DIVALPROEX (EC) 500 MG TAB PO SCH ×2 (09:00→20:33)
[2018-11-11] MEDS: DOCUSATE SODIUM 100 MG CAP PO SCH (09:00)
[2018-11-11] MEDS: BENZTROPINE 1 MG TAB PO SCH ×2 (09:00→20:33)
[2018-11-11] MEDS: TESTOSTERONE 1% GEL 5 GM PACKET TOP SCH (09:00)
[2018-11-11] MEDS: OLANZAPINE 5 MG TAB PO SCH ×2 (09:00→20:33)
[2018-11-11] MEDS ORDERED: predniSONE 2.5 MG TAB PO SCH ×2 (09:00)
--- NOTE | 2018-11-11 11:27 | CONS ---
Assessment/Plan Assessment/Plan Problems: (1) Adrenal insufficiency Status: Chronic Comment: Change prednisone 7.5 mg qam and 2.5 mg qpm which pt. is refusing to hydrocortisone 20 mg IV qam and 10 mg IV qpm which pt. will receive without refusing. Will change back to oral when pt. more compliant. (2) Testicular hypofunction Status: Chronic Comment: Cont. 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 LT4 and check TFT's today if pt. allows lab draw Consultation Date/Type/Reason Admit Date/Time Nov 07, 2018 at 22:29 Initial Consult Date 11/10/18 Type of Consult Endocrinology Reason for Consultation Adrenal insufficiency Requesting Provider: VESNA SERNA MD Date/Time of Note DATE: 11/11/18 TIME: 11:25 24 HR Interval Summary Constitutional: no complaints (refusing exam) Exam/Review of Systems Exam Vitals VS - Last 72 Hours, by Label Date Temp Pulse Resp B/P (MAP) Pulse Ox O2 O2 Flow FiO2 Time Delivery Rate 11/11/18 102.8 110 18 119/60 91 Room Air 07:58 (79) 11/11/18 100.6 104 18 120/71 90 02:06 (87) 11/10/18 101.2 89 16 130/84 90 20:16 (99) 11/10/18 99.5 10:25 11/10/18 102.2 09:38 11/10/18 102.2 105 24 133/86 93 08:09 (102) 11/10/18 97.8 94 18 135/76 96 02:00 (95) 11/09/18 97.3 98 19 131/83 94 20:26 (99) 11/09/18 99.1 86 20 144/86 96 14:00 (105) 11/09/18 100.8 105 124/83 99 Room Air 11:53 (97) 11/08/18 97.4 85 19 113/82 96 20:00 (92) 11/08/18 98.2 84 18 119/76 97 Room Air 17:45 (90) 11/08/18 102 16:46 11/08/18 79 12:42 11/08/18 99.2 81 18 132/77 93 Room Air 11:39 (95) Vital Signs Date Temp Pulse Resp B/P (MAP) Pulse Ox O2 O2 Flow FiO2 Time Delivery Rate 11/11/18 102.8 110 18 119/60 91 Room Air 07:58 (79) Intake and Output 11/10/18 11/10/18 11/11/18 1515:00 23:00 07:00 IntakeIntake Total 500 ml 400 ml 560 ml BalanceBalance 500 ml 400 ml 560 ml Constitutional: obese; No alert, No oriented Respiratory: clear to auscultation, normal air movement Cardiovascular: regular rate and rhythm, nl pulses; No edema, No murmurs/extra sounds, No rub Gastrointestinal: soft, nl liver, spleen, non-tender, bowel sounds; No mass, No rebound or guarding Musculoskeletal: nl extremities to inspection Extremities: normal pulses; No cyanosis, No clubbing, No edema Neurological: lethargic Results Result Diagram: 11/10/1843211/10/18432 Medications Medication Current Medications Benztropine Mesylate (Cogentin) 1 mg BID PO Last administered on 11/10/18 08:39; Admin Dose 1 MG; Start 11/08/18 at 09:00 Divalproex Sodium (Depakote) 500 mg BID PO Last administered on 11/10/18 08:38; Admin Dose 500 MG; Start 11/08/18 at 09:00 Docusate Sodium (Colace) 250 mg DAILY PO Last administered on 11/09/18 11:31; Admin Dose 250 MG; Start 11/08/18 at 09:00 Levothyroxine Sodium (Synthroid) 75 mcg BEFORE BREAKFAST PO Last administered on 11/10/18 06:18; Admin Dose 75 MCG; Start 11/08/18 at 07:00 Testosterone (Androgel) 5 gm DAILY TOP Last administered on 11/10/18 09:38; Admin Dose 5 GM; Start 11/08/18 at 09:00 Acetaminophen (Tylenol Tab) 650 mg Q6H PRN PO MILD PAIN(1-3)OR ELEVATED TEMP Last administered on 11/10/18 09:38; Admin Dose 650 MG; Start 11/07/18 at 23:30 Ondansetron HCl (Zofran Inj) 4 mg Q6H PRN IV NAUSEA AND/OR VOMITING Last administered on 3/1/19at 13:04; Admin Dose 4 MG; Start 11/07/18 at 23:30 Olanzapine (Zyprexa) 15 mg BID PO Last administered on 11/10/18 08:39; Admin Dose 15 MG; Start 11/08/18 at 21:00 Chlorpromazine (Thorazine) 50 mg Q6 PRN IM AGITATION Last administered on 11/10/18at 10:54; Admin Dose 50 MG; Start 11/08/18 at 16:00 Pantoprazole (Protonix Tab) 40 mg DAILY@06 PO Last administered on 11/10/18at 06:18; Admin Dose 40 MG; Start 11/10/18 at 06:00 Vancomycin HCl (Vanco Iv Per Pharmacy) VANCOMYCIN PER PHARMACY PER PROTOCOL XX ; Start 11/10/18 at 13:30 Meropenem/Sodium Chloride 50 ml @ 100 mls/hr Q12 IVPB Last administered on 11/10/18at 21:31; Admin Dose 100 MLS/HR; Start 11/10/18 at 13:30 Vancomycin HCl 1.5 gm/Sodium Chloride 250 ml @ 83.333 mls/ hr Q36H IVPB Last administered on 11/10/18at 16:22; Admin Dose 83.333 MLS/HR; Start 11/10/18 at 14:30 Potassium Chloride 40 meq/ Dextrose 1,020 ml @ 70 mls/hr [id number] IV Last administered on 11/10/18at 21:31; Admin Dose 70 MLS/HR; Start 11/10/18 at 18:30 Hydrocortisone (Solu-Cortef) 20 mg QAM IV ; Start 11/11/18 at 12:30 Hydrocortisone (Solu-Cortef) 10 mg PC DINNER IV ; Start 11/11/18 at 19:00; Status RIP CAO MD Nov 11, 2018 11:27
--- NOTE | 2018-11-11 11:49 | PN ---
Date/Time of Note Date/Time of Note DATE: 11/11/18 TIME: 11:46 Assessment/Plan VTE Prophylaxis Risk score (from [facility])>0 risk: 3 [place] [facility] [place] contraindicated: other Pharmacological prophylaxis: LMWH Lines/Catheters IV Catheter Type (from [facility]): Peripheral IV Urinary Cath still in place: Yes Reason Cath still needed: urinary retention Assessment/Plan Hospital Course 1. Hypotension, tachycardia, could be secondary to sepsis secondary to urinary tract infection,/pneumonia 2. Leukocytosis> improved. 3. Acute renal failure, likely secondary to combination of obstruction since the patient has not urinated/combination of prerenal/post the patient was given antibiotic, vancomycin and Zosyn. 4. Hypokalemia. 5. Metabolic acidosis. 6. History of schizophrenia. 7. History of developmental delay. 8. Mental retardation. 9. HX Cumby disease 10 Hypernatremia likely hypovolemic /on fludricortisone 11 Hypokalemia with diarrhoea 12.Obesity 13. Non compliance Assessment/Plan -psych. consult engaged -pt refusing treatment PO, - change meds to IV -c/w IV fluids - iv abx per ID - Bld cx negative so far - c/w Zuñiga - Endocrine consult - GI prophylaxis Protonix -DVT PROPHYLAXIS SCD. pt refused so decides to start Lovenox 40 mg po daily after INR drawn -Dr Kaur called at 1930 pm. Result Diagram: 11/10/1843211/10/18432 Subjective 24 Hr Interval Summary Free Text/Dictation not tALKING TO ME Exam/Review of Systems Exam Vitals Vital Signs Date Temp Pulse Resp B/P (MAP) Pulse Ox O2 O2 Flow FiO2 Time Delivery Rate 11/11/18 102.8 110 18 119/60 91 Room Air 07:58 (79) Intake and Output 11/10/18 11/10/18 11/11/18 1515:00 23:00 07:00 IntakeIntake Total 500 ml 400 ml 560 ml BalanceBalance 500 ml 400 ml 560 ml Exam not talking to me Eyes: nl conjunctiva Neck: supple Respiratory: normal air movement Cardiovascular: regular rate and rhythm Genitourinary - Male: nl penis, other (zuñiga) Extremities: normal pulses Medications Medication Current Medications Benztropine Mesylate (Cogentin) 1 mg BID PO Last administered on 11/10/18 08:39; Admin Dose 1 MG; Start 11/08/18 at 09:00 Divalproex Sodium (Depakote) 500 mg BID PO Last administered on 11/10/18 08:38; Admin Dose 500 MG; Start 11/08/18 at 09:00 Docusate Sodium (Colace) 250 mg DAILY PO Last administered on 11/09/18 11:31; Admin Dose 250 MG; Start 11/08/18 at 09:00 Levothyroxine Sodium (Synthroid) 75 mcg BEFORE BREAKFAST PO Last administered on 11/10/18 06:18; Admin Dose 75 MCG; Start 11/08/18 at 07:00 Testosterone (Androgel) 5 gm DAILY TOP Last administered on 11/10/18 09:38; Admin Dose 5 GM; Start 11/08/18 at 09:00 Acetaminophen (Tylenol Tab) 650 mg Q6H PRN PO MILD PAIN(1-3)OR ELEVATED TEMP Last administered on 11/10/18 09:38; Admin Dose 650 MG; Start 11/07/18 at 23:30 Ondansetron HCl (Zofran Inj) 4 mg Q6H PRN IV NAUSEA AND/OR VOMITING Last administered on 11/10/18 13:04; Admin Dose 4 MG; Start 11/07/18 at 23:30 Olanzapine (Zyprexa) 15 mg BID PO Last administered on 11/10/18 08:39; Admin Dose 15 MG; Start 11/08/18 at 21:00 Chlorpromazine (Thorazine) 50 mg Q6 PRN IM AGITATION Last administered on 11/10/18 10:54; Admin Dose 50 MG; Start 11/08/18 at 16:00 Pantoprazole (Protonix Tab) 40 mg DAILY@06 PO Last administered on 11/10/18 06:18; Admin Dose 40 MG; Start 11/10/18 at 06:00 Vancomycin HCl (Vanco Iv Per Pharmacy) VANCOMYCIN PER PHARMACY PER PROTOCOL XX ; Start 11/10/18 at 13:30 Meropenem/Sodium Chloride 50 ml @ 100 mls/hr Q12 IVPB Last administered on 11/10/18 21:31; Admin Dose 100 MLS/HR; Start 11/10/18 at 13:30 Vancomycin HCl 1.5 gm/Sodium Chloride 250 ml @ 83.333 mls/ hr Q36H IVPB Last administered on 11/10/18at 16:22; Admin Dose 83.333 MLS/HR; Start 11/10/18 at 14:30 Potassium Chloride 40 meq/ Dextrose 1,020 ml @ 70 mls/hr [id number] IV Last administered on 11/10/18at 21:31; Admin Dose 70 MLS/HR; Start 11/10/18 at 18:30 Hydrocortisone (Solu-Cortef) 20 mg QAM IV ; Start 11/11/18 at 12:30 Hydrocortisone (Solu-Cortef) 10 mg PC DINNER IV ; Start 11/11/18 at 19:00 JULISSA BELCHER Nov 11, 2018 11:49
[2018-11-11 12:12] VITALS: BP 118/77; PULSE 108; RESP 24
--- NOTE | 2018-11-11 12:53 | CONS ---
Assessment/Plan Assessment/Plan Hospital Course (Demo Recall) ID PROGRESS NOTE CURRENT ABX: DAY # Vanco IV + Merrem + Start Cancidas s/p Keflex 11/10/18 0433 11/10/18 0433 24H INTERVAL SUMMARY * TMax 102.8 today -- High fevers x > 48H w/Urine Cx (+)YEAST on 11/08/18 * WBC normalized * ABX spectrum broadened yesterday to cover concern ASP PNA DIAGNOSTIC IMAGING * 11/08/18 CXR: Low lung volumes with bibasilar air space opacities repres enting atelectasis or pneumonia.Small right pleural effusion. MICRO/OTHER * 11/08/18 URINE CX: (+) YEAST URINE CULTURE Final Organism 1 YEAST,NOT PRATIK ALBICANS COLONY COUNT <10,000 CFU/ml PHYSICAL EXAMINATION: GENERAL: VSS HEENT: AT, NC, anicteric NECK: Supple, CHEST: Equal chest rise bilaterally, without dyspnea on observation HEART: Pulse RRR ABDOMEN: Soft / NT EXTREMITIES: Warm, dry SKIN: No rash, no diaphoresis ID ASSESSMENT 38 yo M admit with: 1. Sepsis, present on admission 2. Pneumonia 3. Acute renal failure, possibly retention 4. Complicated UTI 11/08/18 URINE CX: (+) YEAST URINE CULTURE Final Organism 1 YEAST,NOT PRATIK ALBICANS COLONY COUNT <10,000 CFU/ml 5. Hypothyroid 6. Giovanni's disease 7. Mental retardation 8. 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 Medical noncompliance ABX ALLERGIES: KNDA INVASIVES: PIV CURRENT ABX: DAY # Vanco IV + Merrem + Start Cancidas ID RECOMMENDATIONS/PLAN: 1. Continue current ABX + Start Cancidas for concern progressive YEAST UTI on antibiotics . Consultation Date/Type/Reason Admit Date/Time Nov 07, 2018 at 22:29 Initial Consult Date 11/10/18 Requesting Provider: VESNA SERNA MD Date/Time of Note DATE: 11/11/18 TIME: 12:53 Exam/Review of Systems Exam Vitals Vital Signs Date Temp Pulse Resp B/P (MAP) Pulse Ox O2 O2 Flow FiO2 Time Delivery Rate 11/11/18 102.0 108 24 118/77 82 Room Air 12:12 (91) Intake and Output 11/10/18 11/10/18 11/11/18 1515:00 23:00 07:00 IntakeIntake Total 500 ml 400 ml 560 ml BalanceBalance 500 ml 400 ml 560 ml Results Result Diagram: 11/10/1843211/10/18432 Medications Medication Current Medications Benztropine Mesylate (Cogentin) 1 mg BID PO Last administered on 11/10/18 08:39; Admin Dose 1 MG; Start 11/08/18 at 09:00 Divalproex Sodium (Depakote) 500 mg BID PO Last administered on 11/10/18 08:38; Admin Dose 500 MG; Start 11/08/18 at 09:00 Docusate Sodium (Colace) 250 mg DAILY PO Last administered on 11/09/18 11:31; Admin Dose 250 MG; Start 11/08/18 at 09:00 Testosterone (Androgel) 5 gm DAILY TOP Last administered on 11/10/18 09:38; Admin Dose 5 GM; Start 11/08/18 at 09:00 Acetaminophen (Tylenol Tab) 650 mg Q6H PRN PO MILD PAIN(1-3)OR ELEVATED TEMP Last administered on 11/10/18 09:38; Admin Dose 650 MG; Start 11/07/18 at 23:30 Ondansetron HCl (Zofran Inj) 4 mg Q6H PRN IV NAUSEA AND/OR VOMITING Last administered on 11/10/18 13:04; Admin Dose 4 MG; Start 11/07/18 at 23:30 Olanzapine (Zyprexa) 15 mg BID PO Last administered on 11/10/18 08:39; Admin Dose 15 MG; Start 11/08/18 at 21:00 Chlorpromazine (Thorazine) 50 mg Q6 PRN IM AGITATION Last administered on 11/10/18 10:54; Admin Dose 50 MG; Start 11/08/18 at 16:00 Vancomycin HCl (Vanco Iv Per Pharmacy) VANCOMYCIN PER PHARMACY PER PROTOCOL XX ; Start 11/10/18 at 13:30 Meropenem/Sodium Chloride 50 ml @ 100 mls/hr Q12 IVPB Last administered on 11/10/18 21:31; Admin Dose 100 MLS/HR; Start 11/10/18 at 13:30 Vancomycin HCl 1.5 gm/Sodium Chloride 250 ml @ 83.333 mls/ hr Q36H IVPB Last administered on 11/10/18at 16:22; Admin Dose 83.333 MLS/HR; Start 11/10/18 at 14:30 Potassium Chloride 40 meq/ Dextrose 1,020 ml @ 70 mls/hr [id number] IV Last administered on 11/10/18at 21:31; Admin Dose 70 MLS/HR; Start 11/10/18 at 18:30 Hydrocortisone (Solu-Cortef) 20 mg QAM IV ; Start 11/11/18 at 12:30 Hydrocortisone (Solu-Cortef) 10 mg PC DINNER IV ; Start 11/11/18 at 19:00 Levothyroxine Sodium (Synthroid Iv) 50 mcg DAILY@06 IV ; Start 11/12/18 at 06:00 Pantoprazole (Protonix Iv) 40 mg DAILY@06 IV ; Start 11/12/18 at 06:00 Potassium Chloride 100 ml @ 50 mls/hr Q2H IVPB ; Start 11/11/18 at 13:30; Stop 11/11/18 at 17:29 MANJU BILLINGS NP Nov 11, 2018 12:53
[2018-11-11] MEDS: ACETAMINOPHEN 325 MG TAB PO PRN (13:24)
[2018-11-11] MEDS ORDERED: ACETAMINOPHEN 1000MG/100ML IV 100 ML IVPB PRN (14:00)
[2018-11-11] MEDS: CHLORPROMAZINE 25 MG INJ IM PRN (14:06)
[2018-11-11] MEDS: MEROPENEM 500MG/50 ML (PMX) 50 ML IVPB SCH ×2 (14:53→20:33)
[2018-11-11] MEDS: POTASSIUM CHLORIDE 40 MEQ in DEXTROSE 5% 1,000 ML IV SCH (14:54)
[2018-11-11] MEDS: HYDROCORTISONE 100 MG INJ IV SCH ×2 (15:15→18:43)
[2018-11-11] MEDS ORDERED: CASPOFUNGIN 70 MG in SOD CHLORIDE 0.9% 250 ML IVPB ONE (16:00)
[2018-11-11] MEDS: POTASSIUM CHLORIDE 100 ML IVPB SCH ×2 (16:49→20:33)
[2018-11-11 18:02] VITALS: BP 90/51; PULSE 101; RESP 26
[2018-11-11] MEDS ORDERED: SOD CHLORIDE 0.9% 250 ML IV ONE (19:30)
[2018-11-11 19:41] VITALS: BP 90/54; PULSE 80; RESP 16
[2018-11-11] MEDS ORDERED: NS + KCL 20 MEQ 1,000 ML IV SCH (20:30)
[2018-11-12 01:27] VITALS: BP 103/63; PULSE 70; RESP 16
[2018-11-12] MEDS: LEVOTHYROXINE 100 MCG VIAL IV SCH (05:31)
[2018-11-12] MEDS: PANTOPRAZOLE 40 MG INJ IV SCH (05:31)
[2018-11-12 07:19] VITALS: BP 108/73; PULSE 70; RESP 18
--- NOTE | 2018-11-12 08:51 | PN ---
CHETLUIS CARLOSEFRAINTanishaJULISSA 11/12/18 0851: Date/Time of Note Date/Time of Note DATE: 11/12/18 TIME: 08:51 Assessment/Plan VTE Prophylaxis Risk score (from [facility] [place])>0 risk: 5 SCD applied (from [facility] [place]): No SCD contraindicated: other Pharmacological prophylaxis: LMWH Lines/Catheters IV Catheter Type (from [facility]): Peripheral IV Urinary Cath still in place: No Assessment/Plan Hospital Course 1. Hypotension, tachycardia, could be secondary to sepsis secondary to urinary tract infection,/pneumonia 2. Leukocytosis> improved. 3. Acute renal failure, likely secondary to combination of obstruction since the patient has not urinated/combination of prerenal/post the patient was given antibiotic, vancomycin and Zosyn. 4. Hypokalemia, now hyperkalemia. 5. Metabolic acidosis. 6. History of schizophrenia. 7. History of developmental delay. 8. Mental retardation. 9. HX Zachary disease 10 Hypernatremia likely hypovolemic /on fludricortisone 11 Hypokalemia with diarrhoea, resolved 12.Obesity 13. Non compliance 14. Anemia Assessment/Plan -monitor cr,2.63 - today-psych. consult engaged -pt refusing treatment PO, change meds to IV -c/w IV fluids, remove potassium component due to hyperkalemia -Kayexalate once - iv abx per ID - Bld cx negative so far - difficulties with zuñiga -urology consult dr Kaur - Endocrine consult - GI prophylaxis Protonix -DVT PROPHYLAXIS SCD. pt refused, Lovenox Result Diagram: 11/11/18 1722 11/12/18 0524 Results 24hrs Laboratory Tests Test 11/11/18 17:21 11/11/18 17:22 11/11/18 19:34 11/12/18 05:24 Activated 49.6 H Partial Thromboplast Time Sodium Level 142 144 Potassium Level 3.3 L 5.2 H Chloride Level 112 H 117 H Carbon Dioxide Level 22 18 L Anion Gap 8 9 Blood Urea Nitrogen 19 23 H Creatinine 3.40 H 2.63 H Est Glomerular Filtrat 21 L 28 L Rate mL/min Glucose Level 131 86 # Calcium Level 8.7 7.8 L Phosphorus Level 3.5 Magnesium Level 1.7 White Blood Count 11.2 #H Pending Red Blood Count 3.10 L Pending Hemoglobin 9.5 L Pending Hematocrit 29.0 L Pending Mean Corpuscular Volume 93.5 Pending Mean Corpuscular 30.6 Pending Hemoglobin Mean Corpuscular 32.8 Pending Hemoglobin Concent Red Cell Distribution 12.3 Pending Width Platelet Count 122 #L Pending Mean Platelet Volume 10.5 H Pending Immature Granulocytes % 0.300 Neutrophils % 81.0 H Lymphocytes % 7.4 L Monocytes % 9.0 Eosinophils % 2.1 Basophils % 0.2 Nucleated Red Blood 0.0 Cells % Immature Granulocytes # 0.030 Neutrophils # 9.0 H Lymphocytes # 0.8 Monocytes # 1.0 H Eosinophils # 0.2 Basophils # 0.0 Nucleated Red Blood 0.0 Cells # Thyroid Stimulating 4.560 Hormone (TSH) Free Thyroxine Index 2.93 Thyroxine (T4) 7.0 Triiodothyronine (T3) 41.8 H Uptake Lactic Acid Level 0.6 Random Vancomycin Level 14.1 Subjective 24 Hr Interval Summary Free Text/Dictation shout to leave a room Gastrointestinal: no complaints, pain, blood, constipation, decreased appetite, diarrhea, flatus, nausea, passing stool, vomiting, other Exam/Review of Systems Exam Vitals Vital Signs Date Temp Pulse Resp B/P (MAP) Pulse Ox O2 O2 Flow FiO2 Time Delivery Rate 11/12/18 97.4 70 18 108/73 93 Room Air 07:19 (85) Intake and Output 11/11/18 11/11/18 11/12/18 1515:00 23:00 07:00 IntakeIntake Total 790 ml 560 ml BalanceBalance 790 ml 560 ml Constitutional: alert, oriented (name) ENMT: nl external ears & nose Respiratory: clear to auscultation Cardiovascular: regular rate and rhythm Gastrointestinal: soft, rebound or guarding (lower abdomen) Results Result Diagram: 11/11/18 1722 11/12/18 0524 Results 24hrs Laboratory Tests Test 11/11/18 17:21 11/11/18 17:22 11/11/18 19:34 11/12/18 05:24 Activated 49.6 H Partial Thromboplast Time Sodium Level 142 144 Potassium Level 3.3 L 5.2 H Chloride Level 112 H 117 H Carbon Dioxide Level 22 18 L Anion Gap 8 9 Blood Urea Nitrogen 19 23 H Creatinine 3.40 H 2.63 H Est Glomerular Filtrat 21 L 28 L Rate mL/min Glucose Level 131 86 # Calcium Level 8.7 7.8 L Phosphorus Level 3.5 Magnesium Level 1.7 White Blood Count 11.2 #H Pending Red Blood Count 3.10 L Pending Hemoglobin 9.5 L Pending Hematocrit 29.0 L Pending Mean Corpuscular Volume 93.5 Pending Mean Corpuscular 30.6 Pending Hemoglobin Mean Corpuscular 32.8 Pending Hemoglobin Concent Red Cell Distribution 12.3 Pending Width Platelet Count 122 #L Pending Mean Platelet Volume 10.5 H Pending Immature Granulocytes % 0.300 Neutrophils % 81.0 H Lymphocytes % 7.4 L Monocytes % 9.0 Eosinophils % 2.1 Basophils % 0.2 Nucleated Red Blood 0.0 Cells % Immature Granulocytes # 0.030 Neutrophils # 9.0 H Lymphocytes # 0.8 Monocytes # 1.0 H Eosinophils # 0.2 Basophils # 0.0 Nucleated Red Blood 0.0 Cells # Thyroid Stimulating 4.560 Hormone (TSH) Free Thyroxine Index 2.93 Thyroxine (T4) 7.0 Triiodothyronine (T3) 41.8 H Uptake Lactic Acid Level 0.6 Random Vancomycin Level 14.1 Medications Medication Current Medications Benztropine Mesylate (Cogentin) 1 mg BID PO Last administered on 11/10/18 08:39; Admin Dose 1 MG; Start 11/08/18 at 09:00 Divalproex Sodium (Depakote) 500 mg BID PO Last administered on 11/10/18 08:38; Admin Dose 500 MG; Start 11/08/18 at 09:00 Docusate Sodium (Colace) 250 mg DAILY PO Last administered on 11/09/18 11:31; Admin Dose 250 MG; Start 11/08/18 at 09:00 Testosterone (Androgel) 5 gm DAILY TOP Last administered on 11/10/18 09:38; Admin Dose 5 GM; Start 11/08/18 at 09:00 Acetaminophen (Tylenol Tab) 650 mg Q6H PRN PO MILD PAIN(1-3)OR ELEVATED TEMP Last administered on 11/10/18 09:38; Admin Dose 650 MG; Start 11/07/18 at 23:30 Ondansetron HCl (Zofran Inj) 4 mg Q6H PRN IV NAUSEA AND/OR VOMITING Last administered on 11/10/18 13:04; Admin Dose 4 MG; Start 11/07/18 at 23:30 Olanzapine (Zyprexa) 15 mg BID PO Last administered on 11/10/18 08:39; Admin Dose 15 MG; Start 11/08/18 at 21:00 Chlorpromazine (Thorazine) 50 mg Q6 PRN IM AGITATION Last administered on 11/11/18 14:06; Admin Dose 50 MG; Start 11/08/18 at 16:00 Vancomycin HCl (Vanco Iv Per Pharmacy) VANCOMYCIN PER PHARMACY PER PROTOCOL XX ; Start 11/10/18 at 13:30 Meropenem/Sodium Chloride 50 ml @ 100 mls/hr Q12 IVPB Last administered on 11/11/18 20:33; Admin Dose 100 MLS/HR; Start 11/10/18 at 13:30 Hydrocortisone (Solu-Cortef) 20 mg QAM IV Last administered on 11/11/18 15:15; Admin Dose 20 MG; Start 11/11/18 at 12:30 Hydrocortisone (Solu-Cortef) 10 mg PC DINNER IV Last administered on 11/11/18 18:43; Admin Dose 10 MG; Start 11/11/18 at 19:00 Levothyroxine Sodium (Synthroid Iv) 50 mcg DAILY@06 IV Last administered on 11/12/18 05:31; Admin Dose 50 MCG; Start 11/12/18 at 06:00 Pantoprazole (Protonix Iv) 40 mg DAILY@06 IV Last administered on 11/12/18 05:31; Admin Dose 40 MG; Start 11/12/18 at 06:00 Acetaminophen 100 ml @ 400 mls/hr Q6H PRN IVPB FEVER Last administered on 11/11/18 14:53; Admin Dose 400 MLS/HR; Start 11/11/18 at 14:00; Stop 11/12/18 at 13:59 Caspofungin 50 mg/ Sodium Chloride 250 ml @ 250 mls/hr Q24H IVPB ; Start 11/12/18 at 16:00 Potassium Chloride/Sodium Chloride 1,000 ml @ 70 mls/hr [id number] IV Last administered on 11/11/18 23:50; Admin Dose 70 MLS/HR; Start 3/2/19 at 20:30 Fludrocortisone Acetate (Florinef) 0.05 mg DAILY PO ; Start 11/12/18 at 09:00 Vancomycin HCl 250 ml @ 125 mls/hr ONCE IVPB ; Start 11/12/18 at 10:00; Stop 11/12/18 at 23:59 Sodium Polystyrene Sulfonate (Kayexelate 15 Gm Kit (Powder+Sorbitol)) 15 gm ONCE ONCE PO ; Start 11/12/18 at 09:00; Stop 11/12/18 at 09:01; Status UNV VESNA SERNA MD 11/12/18 1614: Assessment/Plan Assessment/Plan Assessment/Plan seen and examined pt kicking using F words iv abx zuñiga. pt refsing> mother at bedside iv fluids steroids per endo Result Diagram: 11/11/18 1722 11/12/18 0524 JULISSA BELCHER Nov 12, 2018 08:51 VESNA SERNA MD Nov 12, 2018 16:14
[2018-11-12] MEDS: TESTOSTERONE 1% GEL 5 GM PACKET TOP SCH (09:00)
[2018-11-12] MEDS ORDERED: SODIUM POLYSTYRENE 15 GM KIT (POWDER + SORBITOL) PO ONE (09:00)
[2018-11-12] MEDS: ENOXAPARIN 40 MG/0.4 ML SYG SC SCH (09:30)
[2018-11-12] MEDS: DIVALPROEX (EC) 500 MG TAB PO SCH (10:00)
[2018-11-12] MEDS ORDERED: VANCOMYCIN 1 GM 250 ML IVPB SCH (10:00)
[2018-11-12] MEDS: HYDROCORTISONE 100 MG INJ IV SCH ×2 (10:00→18:01)
[2018-11-12] MEDS: FLUDROCORTISONE 0.1 MG TAB PO SCH (10:01)
[2018-11-12] MEDS: DOCUSATE SODIUM 100 MG CAP PO SCH (10:01)
[2018-11-12] MEDS: BENZTROPINE 1 MG TAB PO SCH (10:01)
[2018-11-12] MEDS: OLANZAPINE 5 MG TAB PO SCH (10:01)
[2018-11-12] MEDS: DEXTROSE 5%-0.45% NACL 1,000 ML IV SCH (10:03)
[2018-11-12] MEDS: MEROPENEM 500MG/50 ML (PMX) 50 ML IVPB SCH ×2 (10:04→21:06)
[2018-11-12] MEDS: CHLORPROMAZINE 25 MG INJ IM PRN (10:32)
--- NOTE | 2018-11-12 11:14 | CONS ---
Assessment/Plan Assessment/Plan Problems: (1) Adrenal insufficiency Status: Chronic Comment: Pt. receiving hydrocortisone intravenously to combat oral non- compliance. However, despite receiving this yesterday was still mildly hyperkalemic today. Will restart fludricortisone 0.05 mg daily and hopefully pt. will take it. (2) Testicular hypofunction Status: Chronic Comment: Cont. 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 Cont. current dosage of LT4. Consultation Date/Type/Reason Admit Date/Time Nov 07, 2018 at 22:29 Initial Consult Date 11/10/18 Type of Consult Endocrinology Reason for Consultation Adrenal insufficiency Requesting Provider: VESNA SERNA MD Date/Time of Note DATE: 11/12/18 TIME: 11:08 24 HR Interval Summary Constitutional: no complaints, improved (happy and cooperative b/c mother is here) Exam/Review of Systems Exam Vitals VS - Last 72 Hours, by Label Date Temp Pulse Resp B/P (MAP) Pulse Ox O2 O2 Flow FiO2 Time Delivery Rate 11/12/18 97.4 70 18 108/73 93 Room Air 07:19 (85) 11/12/18 97.0 70 16 103/63 96 01:27 (76) 11/11/18 97.3 80 16 90/54 (66) 94 19:41 11/11/18 98.5 101 26 90/51 (64) 89 18:02 11/11/18 98.0 15:38 11/11/18 101.0 14:53 11/11/18 102.0 108 24 118/77 82 Room Air 12:12 (91) 11/11/18 102.8 110 18 119/60 91 Room Air 07:58 (79) 11/11/18 100.6 104 18 120/71 90 02:06 (87) 11/10/18 101.2 89 16 130/84 90 20:16 (99) 11/10/18 99.5 10:25 11/10/18 102.2 09:38 11/10/18 102.2 105 24 133/86 93 08:09 (102) 11/10/18 97.8 94 18 135/76 96 02:00 (95) 11/09/18 97.3 98 19 131/83 94 20:26 (99) 11/09/18 99.1 86 20 144/86 96 14:00 (105) 11/09/18 100.8 105 124/83 99 Room Air 11:53 (97) Vital Signs Date Temp Pulse Resp B/P (MAP) Pulse Ox O2 O2 Flow FiO2 Time Delivery Rate 11/12/18 97.4 70 18 108/73 93 Room Air 07:19 (85) Intake and Output 11/11/18 11/11/18 11/12/18 1515:00 23:00 07:00 IntakeIntake Total 790 ml 560 ml BalanceBalance 790 ml 560 ml Constitutional: alert, oriented, well developed, obese Psych: no complaints Respiratory: clear to auscultation, normal air movement Cardiovascular: regular rate and rhythm, nl pulses; No edema, No murmurs/extra sounds, No rub Gastrointestinal: soft, nl liver, spleen, non-tender, bowel sounds; No mass, No rebound or guarding Musculoskeletal: nl extremities to inspection Extremities: normal pulses; No cyanosis, No clubbing, No edema Neurological: METAL TESTER II-XII intact, nl mental status, nl speech, nl strength Results Result Diagram: 11/12/18 0910 11/12/18 0524 Results 24hrs Laboratory Tests Test 11/11/18 17:21 11/11/18 17:22 11/11/18 19:34 11/12/18 05:24 Activated 49.6 H Partial Thromboplast Time Sodium Level 142 144 Potassium Level 3.3 L 5.2 H Chloride Level 112 H 117 H Carbon Dioxide Level 22 18 L Anion Gap 8 9 Blood Urea Nitrogen 19 23 H Creatinine 3.40 H 2.63 H Est Glomerular Filtrat 21 L 28 L Rate mL/min Glucose Level 131 86 # Calcium Level 8.7 7.8 L Phosphorus Level 3.5 Magnesium Level 1.7 White Blood Count 11.2 #H Red Blood Count 3.10 L Hemoglobin 9.5 L Hematocrit 29.0 L Mean Corpuscular Volume 93.5 Mean Corpuscular 30.6 Hemoglobin Mean Corpuscular 32.8 Hemoglobin Concent Red Cell Distribution 12.3 Width Platelet Count 122 #L Mean Platelet Volume 10.5 H Immature Granulocytes % 0.300 Neutrophils % 81.0 H Lymphocytes % 7.4 L Monocytes % 9.0 Eosinophils % 2.1 Basophils % 0.2 Nucleated Red Blood 0.0 Cells % Immature Granulocytes # 0.030 Neutrophils # 9.0 H Lymphocytes # 0.8 Monocytes # 1.0 H Eosinophils # 0.2 Basophils # 0.0 Nucleated Red Blood 0.0 Cells # Thyroid Stimulating 4.560 Hormone (TSH) Free Thyroxine Index 2.93 Thyroxine (T4) 7.0 Triiodothyronine (T3) 41.8 H Uptake Lactic Acid Level 0.6 Random Vancomycin Level 14.1 Test 11/12/18 09:10 White Blood Count 13.1 H Red Blood Count 3.28 L Hemoglobin 10.0 L Hematocrit 29.8 L Mean Corpuscular Volume 90.9 Mean Corpuscular 30.5 Hemoglobin Mean Corpuscular 33.6 Hemoglobin Concent Red Cell Distribution 11.9 Width Platelet Count 147 # Mean Platelet Volume 10.9 H Immature Granulocytes % 0.400 Neutrophils % 84.4 H Lymphocytes % 7.9 L Monocytes % 6.9 Eosinophils % 0.3 Basophils % 0.1 Nucleated Red Blood 0.0 Cells % Immature Granulocytes # 0.050 H Neutrophils # 11.0 H Lymphocytes # 1.0 Monocytes # 0.9 Eosinophils # 0.0 Basophils # 0.0 Nucleated Red Blood 0.0 Cells # Medications Medication Current Medications Benztropine Mesylate (Cogentin) 1 mg BID PO Last administered on 11/12/18 10: 01; Admin Dose 1 MG; Start 11/08/18 at 09:00 Divalproex Sodium (Depakote) 500 mg BID PO Last administered on 11/12/18 10:00; Admin Dose 500 MG; Start 11/08/18 at 09:00 Docusate Sodium (Colace) 250 mg DAILY PO Last administered on 11/12/18 10:01; Admin Dose 250 MG; Start 11/08/18 at 09:00 Testosterone (Androgel) 5 gm DAILY TOP Last administered on 11/10/18 09:38; Admin Dose 5 GM; Start 11/08/18 at 09:00 Acetaminophen (Tylenol Tab) 650 mg Q6H PRN PO MILD PAIN(1-3)OR ELEVATED TEMP Last administered on 11/10/18 09:38; Admin Dose 650 MG; Start 11/07/18 at 23:30 Ondansetron HCl (Zofran Inj) 4 mg Q6H PRN IV NAUSEA AND/OR VOMITING Last administered on 11/10/18 13:04; Admin Dose 4 MG; Start 11/07/18 at 23:30 Olanzapine (Zyprexa) 15 mg BID PO Last administered on 11/12/18 10:01; Admin Dose 15 MG; Start 11/08/18 at 21:00 Chlorpromazine (Thorazine) 50 mg Q6 PRN IM AGITATION Last administered on 11/12/18 10:32; Admin Dose 50 MG; Start 11/08/18 at 16:00 Vancomycin HCl (Vanco Iv Per Pharmacy) VANCOMYCIN PER PHARMACY PER PROTOCOL XX ; Start 11/10/18 at 13:30 Meropenem/Sodium Chloride 50 ml @ 100 mls/hr Q12 IVPB Last administered on 11/12/18 10:04; Admin Dose 100 MLS/HR; Start 11/10/18 at 13:30 Hydrocortisone (Solu-Cortef) 20 mg QAM IV Last administered on 11/12/18 10:00; Admin Dose 20 MG; Start 11/11/18 at 12:30 Hydrocortisone (Solu-Cortef) 10 mg PC DINNER IV Last administered on 11/11/18 18:43; Admin Dose 10 MG; Start 11/11/18 at 19:00 Levothyroxine Sodium (Synthroid Iv) 50 mcg DAILY@06 IV Last administered on 11/12/18 05:31; Admin Dose 50 MCG; Start 11/12/18 at 06:00 Pantoprazole (Protonix Iv) 40 mg DAILY@06 IV Last administered on 11/12/18 05:31; Admin Dose 40 MG; Start 11/12/18 at 06:00 Acetaminophen 100 ml @ 400 mls/hr Q6H PRN IVPB FEVER Last administered on 11/11/18 14:53; Admin Dose 400 MLS/HR; Start 11/11/18 at 14:00; Stop 11/12/18 at 13:59 Caspofungin 50 mg/ Sodium Chloride 250 ml @ 250 mls/hr Q24H IVPB ; Start 11/12/18 at 16:00 Fludrocortisone Acetate (Florinef) 0.05 mg DAILY PO Last administered on 11/12/18 10:01; Admin Dose 0.05 MG; Start 11/12/18 at 09:00 Vancomycin HCl 250 ml @ 125 mls/hr ONCE IVPB Last administered on 11/12/18at 10:04; Admin Dose 125 MLS/HR; Start 11/12/18 at 10:00; Stop 11/12/18 at 23:59 Dextrose/Sodium Chloride 1,000 ml @ 40 mls/hr Q24H IV Last administered on 11/12/18at 10:03; Admin Dose 40 MLS/HR; Start 11/12/18 at 09:00 Enoxaparin Sodium (Lovenox) 40 mg DAILY SC ; Start 11/12/18 at 09:30 RIP TOSCANO MD Nov 12, 2018 11:14
--- NOTE | 2018-11-12 12:07 | CONS ---
Assessment/Plan Assessment/Plan Hospital Course (Demo Recall) 38-year-old male with a past medical history of developmental delay and mental retardation, schizoaffective disorder as well as bipolar disorder. 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 He lives in a fci in [place]. The patient was admitted in [facility] in 10/2018 secondary to NAOMI, UTI. The patient was discharged home with p.o. antibiotics; however the patient returned to [facility] as he was tachycardic with a low blood pressure and there was concern the patient has addisonian crisis. He was treated with IV hydrocortisone and blood pressure stabilized. He was also hypokalemic on admission and was transferred to [facility] due to insurance reasons. He had an indwelling Ramirez catheter which was removed and patient underwent bladder scan and he was in urinary retention. The nursing staff attempted to insert the catheter on him but nothing came out. Therefore a urological consultation was requested. Currently, the patient has been very belligerent, and he would not let us check his bladder was a bladder scan or try to insert the catheter for him. He was screaming yelling and saying the F word time after time. He did receive 50 mg of Thorazine IM earlier and that did not calm him down. As the patient would not allow us to check his bladder was a scan and certainly would not allow us to insert the catheter for him. He was given 50 mg of Thorazine IM and after 1 and half hour still no cooperation. Fortunately after that he walked to the bathroom and urinated in the urinal 1200 mL. Then a bladder scan was done and it showed about 300 mL of postvoid residual. Considering his mental condition and the risk of traumatizing him and inserting a catheter in him pulling it out I recommend to leave him alone and encourage him to urinate every 3-4 hours by letting him go to the bathroom. Consultation Date/Type/Reason Admit Date/Time Nov 07, 2018 at 22:29 Date of Consultation: Nov 12, 2018 Type of Consult Urology Reason for Consultation Urinary retention Requesting Provider: VESNA SERNA MD Date/Time of Note DATE: 11/12/18 TIME: 11:57 Hx of Present Illness 38-year-old male with a past medical history of developmental delay and mental retardation, schizoaffective disorder as well as bipolar disorder. 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 He lives in a fci in [place]. The patient was admitted in [facility] in 10/2018 secondary to NAOMI, UTI. The patient was discharged home with p.o. antibiotics; however the patient returned to [facility] as he was tachycardic with a low blood pressure and there was concern the patient has addisonian crisis. He was treated with IV hydrocortisone and blood pressure stabilized. He was also hypokalemic on admission and was transferred to [facility] due to insurance reasons. He had an indwelling Ramirez catheter which was removed and patient underwent bladder scan and he was in urinary retention. The nursing staff attempted to insert the catheter on him but nothing came out. Therefore a urological consultation was requested. Currently, the patient has been very belligerent, and he would not let us check his bladder was a bladder scan or try to insert the catheter for him. He was screaming yelling and saying the F word time after time. He did receive 50 mg of Thorazine IM earlier and that did not calm him down. Constitutional: other (As per HPI) Eyes: no complaints Respiratory: No shortness of breath Cardiovascular: No chest pain Gastrointestinal: No nausea, No vomiting Genitourinary: other (Urinary retention) Endocrine: other (As per history of present illness) Psychological: other (Patient is very belligerent and uncooperative) Past Medical History Medical History: hypothyroid, other (developmental delay and mental julia rdation, schizoaffective disorder as well as bipolar disorder, Moore disease, hypogonadism) Home Meds Reported Medications Divalproex Sodium* (Divalproex ER*) 500 Mg Tab.er.24h, 500 MG PO BID, #30 TAB.SA 11/08/18 [Tab-A-Davi/iron] No Conflict Check, PO DAILY for Supplement 11/07/18 [Testosterone gel 1%] No Conflict Check, 50 MG TRANSDERM DAILY for Abdomen area for adrenal insuf 11/07/18 Prednisone (Prednisone) 2.5 Mg Tab, 5 MG PO DAILY, TAB 11/07/18 Olanzapine* (Olanzapine*) 15 Mg Tablet, 10 MG PO BID, TAB 11/07/18 Levothyroxine Sodium* (Levothyroxine Sodium*) 75 Mcg Tablet, 75 MCG PO BEFORE BREAKFAST, #30 TAB 11/07/18 Lactulose* (Lactulose*) 20 Gm/30 Ml Solution, 45 ML PO DAILY, ML 11/07/18 Fludrocortisone* (Fludrocortisone*) 0.1 Mg Tablet, 0.1 MG PO DAILY, TAB 11/07/18 Docusate Sodium* (Docusate Sodium*) 100 Mg Capsule, 250 MG PO DAILY, #30 CAP 11/07/18 Benztropine Mesylate* (Benztropine Mesylate*) 1 Mg Tablet, 1 MG PO BID, TAB 11/07/18 Medications Current Medications Benztropine Mesylate (Cogentin) 1 mg BID PO Last administered on 11/12/18 10:01; Admin Dose 1 MG; Start 11/08/18 at 09:00 Divalproex Sodium (Depakote) 500 mg BID PO Last administered on 11/12/18 10:00; Admin Dose 500 MG; Start 11/08/18 at 09:00 Docusate Sodium (Colace) 250 mg DAILY PO Last administered on 11/12/18 10:01; Admin Dose 250 MG; Start 11/08/18 at 09:00 Testosterone (Androgel) 5 gm DAILY TOP Last administered on 11/10/18 09:38; Admin Dose 5 GM; Start 11/08/18 at 09:00 Acetaminophen (Tylenol Tab) 650 mg Q6H PRN PO MILD PAIN(1-3)OR ELEVATED TEMP Last administered on 11/10/18 09:38; Admin Dose 650 MG; Start 11/07/18 at 23:30 Ondansetron HCl (Zofran Inj) 4 mg Q6H PRN IV NAUSEA AND/OR VOMITING Last administered on 11/10/18 13:04; Admin Dose 4 MG; Start 11/07/18 at 23:30 Olanzapine (Zyprexa) 15 mg BID PO Last administered on 11/12/18 10:01; Admin Dose 15 MG; Start 11/08/18 at 21:00 Chlorpromazine (Thorazine) 50 mg Q6 PRN IM AGITATION Last administered on 11/12/18 10:32; Admin Dose 50 MG; Start 11/08/18 at 16:00 Vancomycin HCl (Vanco Iv Per Pharmacy) VANCOMYCIN PER PHARMACY PER PROTOCOL XX ; Start 11/10/18 at 13:30 Meropenem/Sodium Chloride 50 ml @ 100 mls/hr Q12 IVPB Last administered on 11/12/18 10:04; Admin Dose 100 MLS/HR; Start 11/10/18 at 13:30 Hydrocortisone (Solu-Cortef) 20 mg QAM IV Last administered on 11/12/18 10:00; Admin Dose 20 MG; Start 11/11/18 at 12:30 Hydrocortisone (Solu-Cortef) 10 mg PC DINNER IV Last administered on 11/11/18 18:43; Admin Dose 10 MG; Start 11/11/18 at 19:00 Levothyroxine Sodium (Synthroid Iv) 50 mcg DAILY@06 IV Last administered on 11/12/18 05:31; Admin Dose 50 MCG; Start 11/12/18 at 06:00 Pantoprazole (Protonix Iv) 40 mg DAILY@06 IV Last administered on 11/12/18 05:31; Admin Dose 40 MG; Start 11/12/18 at 06:00 Acetaminophen 100 ml @ 400 mls/hr Q6H PRN IVPB FEVER Last administered on 11/11/18 14:53; Admin Dose 400 MLS/HR; Start 11/11/18 at 14:00; Stop 11/12/18 at 13:59 Caspofungin 50 mg/ Sodium Chloride 250 ml @ 250 mls/hr Q24H IVPB ; Start 11/12/18 at 16:00 Fludrocortisone Acetate (Florinef) 0.05 mg DAILY PO Last administered on 11/12/18 10:01; Admin Dose 0.05 MG; Start 11/12/18 at 09:00 Vancomycin HCl 250 ml @ 125 mls/hr ONCE IVPB Last administered on 11/12/18 10:04; Admin Dose 125 MLS/HR; Start 11/12/18 at 10:00; Stop 11/12/18 at 23:59 Dextrose/Sodium Chloride 1,000 ml @ 40 mls/hr Q24H IV Last administered on 11/12/18 10:03; Admin Dose 40 MLS/HR; Start 11/12/18 at 09:00 Enoxaparin Sodium (Lovenox) 40 mg DAILY SC ; Start 11/12/18 at 09:30 Allergies: Coded Allergies: No Known Allergy (Unverified , 11/08/18) Past Surgical History Past Surgical Hx: no surgical history Social History Alcohol Use: none Smoking Status: Never smoker Drug Use: none Exam/Review of Systems Exam Vitals Vital Signs Date Temp Pulse Resp B/P (MAP) Pulse Ox O2 O2 Flow FiO2 Time Delivery Rate 11/12/18 97.4 70 18 108/73 93 Room Air 07:19 (85) Intake and Output 11/11/18 11/11/18 11/12/18 1414:59 22:59 06:59 IntakeIntake Total 790 ml 560 ml BalanceBalance 790 ml 560 ml Constitutional: alert Psych: other (Very aggressive and belligerent) Head: normocephalic Additional Comments Patient would not allow us to touch him or examine him. He was not even letting us do a bladder scan on him. Results Result Diagram: 11/12/18 0910 11/12/18 0524 Results 24hrs Laboratory Tests Test 11/11/18 17:21 11/11/18 17:22 11/11/18 19:34 11/12/18 05:24 Activated 49.6 H Partial Thromboplast Time Sodium Level 142 144 Potassium Level 3.3 L 5.2 H Chloride Level 112 H 117 H Carbon Dioxide Level 22 18 L Anion Gap 8 9 Blood Urea Nitrogen 19 23 H Creatinine 3.40 H 2.63 H Est Glomerular Filtrat 21 L 28 L Rate mL/min Glucose Level 131 86 # Calcium Level 8.7 7.8 L Phosphorus Level 3.5 Magnesium Level 1.7 White Blood Count 11.2 #H Red Blood Count 3.10 L Hemoglobin 9.5 L Hematocrit 29.0 L Mean Corpuscular Volume 93.5 Mean Corpuscular 30.6 Hemoglobin Mean Corpuscular 32.8 Hemoglobin Concent Red Cell Distribution 12.3 Width Platelet Count 122 #L Mean Platelet Volume 10.5 H Immature Granulocytes % 0.300 Neutrophils % 81.0 H Lymphocytes % 7.4 L Monocytes % 9.0 Eosinophils % 2.1 Basophils % 0.2 Nucleated Red Blood 0.0 Cells % Immature Granulocytes # 0.030 Neutrophils # 9.0 H Lymphocytes # 0.8 Monocytes # 1.0 H Eosinophils # 0.2 Basophils # 0.0 Nucleated Red Blood 0.0 Cells # Thyroid Stimulating 4.560 Hormone (TSH) Free Thyroxine Index 2.93 Thyroxine (T4) 7.0 Triiodothyronine (T3) 41.8 H Uptake Lactic Acid Level 0.6 Random Vancomycin Level 14.1 Test 11/12/18 09:10 White Blood Count 13.1 H Red Blood Count 3.28 L Hemoglobin 10.0 L Hematocrit 29.8 L Mean Corpuscular Volume 90.9 Mean Corpuscular 30.5 Hemoglobin Mean Corpuscular 33.6 Hemoglobin Concent Red Cell Distribution 11.9 Width Platelet Count 147 # Mean Platelet Volume 10.9 H Immature Granulocytes % 0.400 Neutrophils % 84.4 H Lymphocytes % 7.9 L Monocytes % 6.9 Eosinophils % 0.3 Basophils % 0.1 Nucleated Red Blood 0.0 Cells % Immature Granulocytes # 0.050 H Neutrophils # 11.0 H Lymphocytes # 1.0 Monocytes # 0.9 Eosinophils # 0.0 Basophils # 0.0 Nucleated Red Blood 0.0 Cells # Medications Medication Current Medications Benztropine Mesylate (Cogentin) 1 mg BID PO Last administered on 11/12/18 10:01; Admin Dose 1 MG; Start 11/08/18 at 09:00 Divalproex Sodium (Depakote) 500 mg BID PO Last administered on 11/12/18 10:00; Admin Dose 500 MG; Start 11/08/18 at 09:00 Docusate Sodium (Colace) 250 mg DAILY PO Last administered on 11/12/18 10:01; Admin Dose 250 MG; Start 11/08/18 at 09:00 Testosterone (Androgel) 5 gm DAILY TOP Last administered on 11/10/18 09:38; Admin Dose 5 GM; Start 11/08/18 at 09:00 Acetaminophen (Tylenol Tab) 650 mg Q6H PRN PO MILD PAIN(1-3)OR ELEVATED TEMP Last administered on 11/10/18 09:38; Admin Dose 650 MG; Start 11/07/18 at 23:30 Ondansetron HCl (Zofran Inj) 4 mg Q6H PRN IV NAUSEA AND/OR VOMITING Last administered on 11/10/18 13:04; Admin Dose 4 MG; Start 11/07/18 at 23:30 Olanzapine (Zyprexa) 15 mg BID PO Last administered on 11/12/18 10:01; Admin Dose 15 MG; Start 11/08/18 at 21:00 Chlorpromazine (Thorazine) 50 mg Q6 PRN IM AGITATION Last administered on 11/12/18 10:32; Admin Dose 50 MG; Start 11/08/18 at 16:00 Vancomycin HCl (Vanco Iv Per Pharmacy) VANCOMYCIN PER PHARMACY PER PROTOCOL XX ; Start 11/10/18 at 13:30 Meropenem/Sodium Chloride 50 ml @ 100 mls/hr Q12 IVPB Last administered on 11/12/18 10:04; Admin Dose 100 MLS/HR; Start 11/10/18 at 13:30 Hydrocortisone (Solu-Cortef) 20 mg QAM IV Last administered on 11/12/18 10:00; Admin Dose 20 MG; Start 11/11/18 at 12:30 Hydrocortisone (Solu-Cortef) 10 mg PC DINNER IV Last administered on 11/11/18 18:43; Admin Dose 10 MG; Start 11/11/18 at 19:00 Levothyroxine Sodium (Synthroid Iv) 50 mcg DAILY@06 IV Last administered on 11/12/18 05:31; Admin Dose 50 MCG; Start 11/12/18 at 06:00 Pantoprazole (Protonix Iv) 40 mg DAILY@06 IV Last administered on 11/12/18 05:31; Admin Dose 40 MG; Start 11/12/18 at 06:00 Acetaminophen 100 ml @ 400 mls/hr Q6H PRN IVPB FEVER Last administered on 11/11/18 14:53; Admin Dose 400 MLS/HR; Start 11/11/18 at 14:00; Stop 11/12/18 at 13:59 Caspofungin 50 mg/ Sodium Chloride 250 ml @ 250 mls/hr Q24H IVPB ; Start 11/12/18 at 16:00 Fludrocortisone Acetate (Florinef) 0.05 mg DAILY PO Last administered on 11/12/18 10:01; Admin Dose 0.05 MG; Start 11/12/18 at 09:00 Vancomycin HCl 250 ml @ 125 mls/hr ONCE IVPB Last administered on 11/12/18 10:04; Admin Dose 125 MLS/HR; Start 11/12/18 at 10:00; Stop 11/12/18 at 23:59 Dextrose/Sodium Chloride 1,000 ml @ 40 mls/hr Q24H IV Last administered on 11/12/18at 10:03; Admin Dose 40 MLS/HR; Start 11/12/18 at 09:00 Enoxaparin Sodium (Lovenox) 40 mg DAILY SC ; Start 11/12/18 at 09:30 TABATHA FRANCOIS MD Nov 12, 2018 12:07
[2018-11-12 14:04] VITALS: BP 110/63; PULSE 112; RESP 18
[2018-11-12] MEDS: CASPOFUNGIN 50 MG in SOD CHLORIDE 0.9% 250 ML IVPB SCH (15:59)
--- NOTE | 2018-11-12 16:49 | CONS ---
Assessment/Plan Assessment/Plan Hospital Course (Demo Recall) All noted, chart reviewed, patient looks comfortable, he has no episodes of noncompliance and psychosis Antimicrobials: Cancidas, vancomycin, meropenem Urine culture grew yeast, not Antonieta albicans Physical examination: Chronically ill-appearing middle-aged man in no distress head atraumatic normocephalic neck is supple chest rise symmetrical breath sounds diminished bases heart S1-S2 abdomen distended, bowel sounds present extremities with bilateral lower extremities edema Assessment: 1. Sepsis, present on admission 2. Pneumonia and urinary tract infection 3. Acute renal failure, possibly retention 4. Schizophrenia 5. Mental retardation 6. Medical noncompliance Plan: Clinically stable, continue present care, antibiotics, follow recommendations of psychiatric specialists Consultation Date/Type/Reason Admit Date/Time Nov 07, 2018 at 22:29 Initial Consult Date Type of Consult id Requesting Provider: VESNA SERNA MD Date/Time of Note DATE: 11/12/18 TIME: 16:47 Exam/Review of Systems Exam Vitals Vital Signs Date Temp Pulse Resp B/P (MAP) Pulse Ox O2 O2 Flow FiO2 Time Delivery Rate 11/12/18 97.8 112 18 110/63 96 BIPAP 14:04 (79) Nasal Cannula Intake and Output 11/11/18 11/11/18 11/12/18 1515:00 23:00 07:00 IntakeIntake Total 790 ml 560 ml BalanceBalance 790 ml 560 ml Results Result Diagram: 11/12/18 0910 11/12/18 1255 Results 24hrs Laboratory Tests Test 11/11/18 17:21 11/11/18 17:22 11/11/18 19:34 11/12/18 05:24 Activated 49.6 H Partial Thromboplast Time Sodium Level 142 144 Potassium Level 3.3 L 5.2 H Chloride Level 112 H 117 H Carbon Dioxide Level 22 18 L Anion Gap 8 9 Blood Urea Nitrogen 19 23 H Creatinine 3.40 H 2.63 H Est Glomerular Filtrat 21 L 28 L Rate mL/min Glucose Level 131 86 # Calcium Level 8.7 7.8 L Phosphorus Level 3.5 Magnesium Level 1.7 White Blood Count 11.2 #H Red Blood Count 3.10 L Hemoglobin 9.5 L Hematocrit 29.0 L Mean Corpuscular Volume 93.5 Mean Corpuscular 30.6 Hemoglobin Mean Corpuscular 32.8 Hemoglobin Concent Red Cell Distribution 12.3 Width Platelet Count 122 #L Mean Platelet Volume 10.5 H Immature Granulocytes % 0.300 Neutrophils % 81.0 H Lymphocytes % 7.4 L Monocytes % 9.0 Eosinophils % 2.1 Basophils % 0.2 Nucleated Red Blood 0.0 Cells % Immature Granulocytes # 0.030 Neutrophils # 9.0 H Lymphocytes # 0.8 Monocytes # 1.0 H Eosinophils # 0.2 Basophils # 0.0 Nucleated Red Blood 0.0 Cells # Thyroid Stimulating 4.560 Hormone (TSH) Free Thyroxine Index 2.93 Thyroxine (T4) 7.0 Triiodothyronine (T3) 41.8 H Uptake Lactic Acid Level 0.6 Random Vancomycin Level 14.1 Test 11/12/18 09:10 11/12/18 12:55 White Blood Count 13.1 H Red Blood Count 3.28 L Hemoglobin 10.0 L Hematocrit 29.8 L Mean Corpuscular Volume 90.9 Mean Corpuscular 30.5 Hemoglobin Mean Corpuscular 33.6 Hemoglobin Concent Red Cell Distribution 11.9 Width Platelet Count 147 # Mean Platelet Volume 10.9 H Immature Granulocytes % 0.400 Neutrophils % 84.4 H Lymphocytes % 7.9 L Monocytes % 6.9 Eosinophils % 0.3 Basophils % 0.1 Nucleated Red Blood 0.0 Cells % Immature Granulocytes # 0.050 H Neutrophils # 11.0 H Lymphocytes # 1.0 Monocytes # 0.9 Eosinophils # 0.0 Basophils # 0.0 Nucleated Red Blood 0.0 Cells # Potassium Level 4.3 Medications Medication Current Medications Benztropine Mesylate (Cogentin) 1 mg BID PO Last administered on 11/12/18 10:01; Admin Dose 1 MG; Start 11/08/18 at 09:00 Divalproex Sodium (Depakote) 500 mg BID PO Last administered on 11/12/18 10:00; Admin Dose 500 MG; Start 11/08/18 at 09:00 Docusate Sodium (Colace) 250 mg DAILY PO Last administered on 11/12/18 10:01; Admin Dose 250 MG; Start 11/08/18 at 09:00 Testosterone (Androgel) 5 gm DAILY TOP Last administered on 11/10/18 09:38; Admin Dose 5 GM; Start 11/08/18 at 09:00 Acetaminophen (Tylenol Tab) 650 mg Q6H PRN PO MILD PAIN(1-3)OR ELEVATED TEMP Last administered on 11/10/18 09:38; Admin Dose 650 MG; Start 11/07/18 at 23:30 Ondansetron HCl (Zofran Inj) 4 mg Q6H PRN IV NAUSEA AND/OR VOMITING Last administered on 11/10/18 13:04; Admin Dose 4 MG; Start 11/07/18 at 23:30 Olanzapine (Zyprexa) 15 mg BID PO Last administered on 11/12/18 10:01; Admin Dose 15 MG; Start 11/08/18 at 21:00 Chlorpromazine (Thorazine) 50 mg Q6 PRN IM AGITATION Last administered on 11/12/18 10:32; Admin Dose 50 MG; Start 11/08/18 at 16:00 Vancomycin HCl (Vanco Iv Per Pharmacy) VANCOMYCIN PER PHARMACY PER PROTOCOL XX ; Start 11/10/18 at 13:30 Meropenem/Sodium Chloride 50 ml @ 100 mls/hr Q12 IVPB Last administered on 11/12/18 10:04; Admin Dose 100 MLS/HR; Start 11/10/18 at 13:30 Hydrocortisone (Solu-Cortef) 20 mg QAM IV Last administered on 11/12/18 10:00; Admin Dose 20 MG; Start 11/11/18 at 12:30 Hydrocortisone (Solu-Cortef) 10 mg PC DINNER IV Last administered on 11/11/18 18:43; Admin Dose 10 MG; Start 11/11/18 at 19:00 Levothyroxine Sodium (Synthroid Iv) 50 mcg DAILY@06 IV Last administered on 11/12/18 05:31; Admin Dose 50 MCG; Start 11/12/18 at 06:00 Pantoprazole (Protonix Iv) 40 mg DAILY@06 IV Last administered on 11/12/18 05:31; Admin Dose 40 MG; Start 11/12/18 at 06:00 Caspofungin 50 mg/ Sodium Chloride 250 ml @ 250 mls/hr Q24H IVPB Last adminis tered on 11/12/18 15:59; Admin Dose 250 MLS/HR; Start 11/12/18 at 16:00 Fludrocortisone Acetate (Florinef) 0.05 mg DAILY PO Last administered on 11/12/18at 10:01; Admin Dose 0.05 MG; Start 11/12/18 at 09:00 Vancomycin HCl 250 ml @ 125 mls/hr ONCE IVPB Last administered on 11/12/18at 10:04; Admin Dose 125 MLS/HR; Start 11/12/18 at 10:00; Stop 11/12/18 at 23:59 Dextrose/Sodium Chloride 1,000 ml @ 40 mls/hr Q24H IV Last administered on 11/12/18at 10:03; Admin Dose 40 MLS/HR; Start 11/12/18 at 09:00 Enoxaparin Sodium (Lovenox) 40 mg DAILY SC ; Start 11/12/18 at 09:30 Sodium Bicarbonate (Sodium Bicarbonate Tab) 650 mg BID PO ; Start 11/12/18 at 21:00 RENO KAYE NP Nov 12, 2018 16:49
[2018-11-12 19:49] VITALS: BP 107/61; PULSE 89; RESP 18
[2018-11-12] MEDS ORDERED: LORAZEPAM 2 MG INJ IV ONE (20:30)
[2018-11-13] MEDS: NA BICARBONATE 650 MG TAB PO SCH ×3 (00:01→22:27)
[2018-11-13] MEDS: BENZTROPINE 1 MG TAB PO SCH ×3 (00:01→22:27)
[2018-11-13] MEDS: DIVALPROEX (EC) 500 MG TAB PO SCH ×3 (00:01→22:26)
[2018-11-13] MEDS: OLANZAPINE 5 MG TAB PO SCH ×3 (00:01→22:27)
[2018-11-13 01:54] VITALS: BP 108/67; PULSE 67; RESP 18
[2018-11-13] MEDS: LEVOTHYROXINE 100 MCG VIAL IV SCH (06:04)
[2018-11-13] MEDS: PANTOPRAZOLE 40 MG INJ IV SCH (06:04)
[2018-11-13 07:58] VITALS: BP 108/72; PULSE 76; RESP 17
[2018-11-13] MEDS: DEXTROSE 5%-0.45% NACL 1,000 ML IV SCH (09:00)
[2018-11-13] MEDS: TESTOSTERONE 1% GEL 5 GM PACKET TOP SCH (09:00)
[2018-11-13] MEDS: MEROPENEM 500MG/50 ML (PMX) 50 ML IVPB SCH ×2 (09:46→22:26)
[2018-11-13] MEDS: HYDROCORTISONE 100 MG INJ IV SCH (09:51)
[2018-11-13] MEDS: FLUDROCORTISONE 0.1 MG TAB PO SCH (09:54)
[2018-11-13] MEDS: DOCUSATE SODIUM 100 MG CAP PO SCH (09:54)
[2018-11-13] MEDS: ENOXAPARIN 40 MG/0.4 ML SYG SC SCH (10:08)
[2018-11-13 14:25] VITALS: BP 106/68; PULSE 84; RESP 18
--- NOTE | 2018-11-13 14:40 | CONS ---
Assessment/Plan Assessment/Plan Hospital Course (Demo Recall) No acute events overnight per report. Patient is sleeping, looks comfortable, no fevers Antimicrobials: Cancidas, vancomycin, meropenem Urine culture grew yeast, not Antonieta albicans. Blood cultures remain negative Physical examination: Chronically ill-appearing middle-aged man in no distress head atraumatic normocephalic neck is supple chest rise symmetrical breath sounds diminished bases heart S1-S2 abdomen distended, bowel sounds present extremities with bilateral lower extremities edema Assessment: 1. Sepsis, present on admission 2. Pneumonia and urinary tract infection 3. Acute renal failure, possibly retention 4. Schizophrenia 5. Mental retardation 6. Medical noncompliance Plan: Stable, continue present care, antibiotics, follow recommendations of psychiatric specialists, chest x-ray in a.m. Consultation Date/Type/Reason Admit Date/Time Nov 07, 2018 at 22:29 Initial Consult Date Type of Consult id Requesting Provider: VESNA SERNA MD Date/Time of Note DATE: 11/13/18 TIME: 14:39 Exam/Review of Systems Exam Vitals Vital Signs Date Temp Pulse Resp B/P (MAP) Pulse Ox O2 O2 Flow FiO2 Time Delivery Rate 11/13/18 97.1 84 18 106/68 94 14:25 (81) 11/12/18 BIPAP 14:04 Nasal Cannula Intake and Output 11/12/18 11/12/18 11/13/18 1515:00 23:00 07:00 IntakeIntake Total 440 ml 1700 ml 400 ml OutputOutput Total 1200 ml BalanceBalance -760 ml 1700 ml 400 ml Results Result Diagram: 11/12/18 0910 11/12/18 1255 Medications Medication Current Medications Benztropine Mesylate (Cogentin) 1 mg BID PO Last administered on 11/13/18 09:54; Admin Dose 1 MG; Start 11/08/18 at 09:00 Divalproex Sodium (Depakote) 500 mg BID PO Last administered on 11/13/18 09:53; Admin Dose 500 MG; Start 11/08/18 at 09:00 Docusate Sodium (Colace) 250 mg DAILY PO Last administered on 11/13/18 09:54; Admin Dose 250 MG; Start 11/08/18 at 09:00 Testosterone (Androgel) 5 gm DAILY TOP Last administered on 3/1/19at 09:38; Admin Dose 5 GM; Start 11/08/18 at 09:00 Acetaminophen (Tylenol Tab) 650 mg Q6H PRN PO MILD PAIN(1-3)OR ELEVATED TEMP Last administered on 11/10/18 09:38; Admin Dose 650 MG; Start 11/07/18 at 23:30 Ondansetron HCl (Zofran Inj) 4 mg Q6H PRN IV NAUSEA AND/OR VOMITING Last administered on 11/10/18 13:04; Admin Dose 4 MG; Start 11/07/18 at 23:30 Olanzapine (Zyprexa) 15 mg BID PO Last administered on 11/13/18 09:54; Admin Dose 15 MG; Start 11/08/18 at 21:00 Chlorpromazine (Thorazine) 50 mg Q6 PRN IM AGITATION Last administered on 11/12/18 10:32; Admin Dose 50 MG; Start 11/08/18 at 16:00 Vancomycin HCl (Vanco Iv Per Pharmacy) VANCOMYCIN PER PHARMACY PER PROTOCOL XX ; Start 11/10/18 at 13:30 Meropenem/Sodium Chloride 50 ml @ 100 mls/hr Q12 IVPB Last administered on 11/13/18 09:46; Admin Dose 100 MLS/HR; Start 11/10/18 at 13:30 Hydrocortisone (Solu-Cortef) 20 mg QAM IV Last administered on 11/13/18 09:51; Admin Dose 20 MG; Start 11/11/18 at 12:30 Hydrocortisone (Solu-Cortef) 10 mg PC DINNER IV Last administered on 11/12/18 18:01; Admin Dose 10 MG; Start 11/11/18 at 19:00 Levothyroxine Sodium (Synthroid Iv) 50 mcg DAILY@06 IV Last administered on 11/13/18 06:04; Admin Dose 50 MCG; Start 11/12/18 at 06:00 Pantoprazole (Protonix Iv) 40 mg DAILY@06 IV Last administered on 11/13/18 06:04; Admin Dose 40 MG; Start 11/12/18 at 06:00 Caspofungin 50 mg/ Sodium Chloride 250 ml @ 250 mls/hr Q24H IVPB Last administered on 11/12/18 15:59; Admin Dose 250 MLS/HR; Start 11/12/18 at 16:00 Fludrocortisone Acetate (Florinef) 0.05 mg DAILY PO Last administered on 09:54; Admin Dose 0.05 MG; Start 11/12/18 at 09:00 Dextrose/Sodium Chloride 1,000 ml @ 40 mls/hr Q24H IV Last administered on 11/12/18at 10:03; Admin Dose 40 MLS/HR; Start 11/12/18 at 09:00 Enoxaparin Sodium (Lovenox) 40 mg DAILY SC Last administered on 11/13/18at 10:08; Admin Dose 40 MG; Start 11/12/18 at 09:30 Sodium Bicarbonate (Sodium Bicarbonate Tab) 650 mg BID PO Last administered on 11/13/18 09:54; Admin Dose 650 MG; Start 11/12/18 at 21:00 RENO KAYE NP Nov 13, 2018 14:40
--- NOTE | 2018-11-13 15:11 | CONS ---
Assessment/Plan Assessment/Plan Problems: (1) Adrenal insufficiency Status: Chronic Comment: Pt. now taking po meds. Took fludricortisone yesterday. Potassium decreased a little but no follow-up labs today. Will monitor labs when pt. cooperates w/ draw. Since taking po's will change solu-cortef back to oral prednisone and slightly stress doses and monitor. Once improved can reduce these back to regular home dosage. (2) Testicular hypofunction Status: Chronic Comment: Pt. on chronic replacement. Could consider holding as it might make him a little more docile and cooperative. 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 Cont. LT4 daily Consultation Date/Type/Reason Admit Date/Time Nov 07, 2018 at 22:29 Initial Consult Date 11/10/18 Type of Consult Endocrinology Reason for Consultation Adrenal insufficiency Requesting Provider: VESNA SERNA MD Date/Time of Note DATE: 11/13/18 TIME: 15:08 24 HR Interval Summary Subjective hx not possible: pt non-verbal (sleeping) Exam/Review of Systems Exam Vitals VS - Last 72 Hours, by Label Date Temp Pulse Resp B/P (MAP) Pulse Ox O2 O2 Flow FiO2 Time Delivery Rate 11/13/18 97.1 84 18 106/68 94 14:25 (81) 11/13/18 97.6 76 17 108/72 98 07:58 (84) 11/13/18 98.2 67 18 108/67 96 01:54 (81) 11/12/18 98.3 89 18 107/61 95 19:49 (76) 11/12/18 97.8 112 18 110/63 96 BIPAP 14:04 (79) Nasal Cannula 11/12/18 97.4 70 18 108/73 93 Room Air 07:19 (85) 11/12/18 97.0 70 16 103/63 96 01:27 (76) 11/11/18 97.3 80 16 90/54 (66) 94 19:41 11/11/18 98.5 101 26 90/51 (64) 89 18:02 11/11/18 98.0 15:38 11/11/18 101.0 14:53 11/11/18 102.0 108 24 118/77 82 Room Air 12:12 (91) 11/11/18 102.8 110 18 119/60 91 Room Air 07:58 (79) 11/11/18 100.6 104 18 120/71 90 02:06 (87) 11/10/18 101.2 89 16 130/84 90 20:16 (99) Vital Signs Date Temp Pulse Resp B/P (MAP) Pulse Ox O2 O2 Flow FiO2 Time Delivery Rate 11/13/18 97.1 84 18 106/68 94 14:25 (81) 11/12/18 BIPAP 14:04 Nasal Cannula Intake and Output 11/12/18 11/12/18 11/13/18 1515:00 23:00 07:00 IntakeIntake Total 440 ml 1700 ml 400 ml OutputOutput Total 1200 ml BalanceBalance -760 ml 1700 ml 400 ml Constitutional: obese; No alert (sleeping) Respiratory: clear to auscultation, normal air movement Cardiovascular: regular rate and rhythm, nl pulses; No edema, No murmurs/extra sounds, No rub Gastrointestinal: soft, nl liver, spleen, non-tender, bowel sounds; No mass, No rebound or guarding Musculoskeletal: nl extremities to inspection Extremities: normal pulses; No cyanosis, No clubbing, No edema Neurological: unresponsive (asleep) Results Result Diagram: 11/12/18 0910 11/12/18 1255 Medications Medication Current Medications Benztropine Mesylate (Cogentin) 1 mg BID PO Last administered on 11/13/18 09:54; Admin Dose 1 MG; Start 11/08/18 at 09:00 Divalproex Sodium (Depakote) 500 mg BID PO Last administered on 11/13/18 09:53; Admin Dose 500 MG; Start 11/08/18 at 09:00 Docusate Sodium (Colace) 250 mg DAILY PO Last administered on 11/13/18 09:54; Admin Dose 250 MG; Start 11/08/18 at 09:00 Testosterone (Androgel) 5 gm DAILY TOP Last administered on 11/10/18 09:38; Admin Dose 5 GM; Start 11/08/18 at 09:00 Acetaminophen (Tylenol Tab) 650 mg Q6H PRN PO MILD PAIN(1-3)OR ELEVATED TEMP Last administered on 11/10/18 09:38; Admin Dose 650 MG; Start 11/07/18 at 23:30 Ondansetron HCl (Zofran Inj) 4 mg Q6H PRN IV NAUSEA AND/OR VOMITING Last administered on 11/10/18 13:04; Admin Dose 4 MG; Start 11/07/18 at 23:30 Olanzapine (Zyprexa) 15 mg BID PO Last administered on 11/13/18 09:54; Admin Dose 15 MG; Start 11/08/18 at 21:00 Chlorpromazine (Thorazine) 50 mg Q6 PRN IM AGITATION Last administered on 11/12/18 10:32; Admin Dose 50 MG; Start 11/08/18 at 16:00 Vancomycin HCl (Vanco Iv Per Pharmacy) VANCOMYCIN PER PHARMACY PER PROTOCOL XX ; Start 11/10/18 at 13:30 Meropenem/Sodium Chloride 50 ml @ 100 mls/hr Q12 IVPB Last administered on 11/13/18 09:46; Admin Dose 100 MLS/HR; Start 11/10/18 at 13:30 Hydrocortisone (Solu-Cortef) 20 mg QAM IV Last administered on 11/13/18 09:51; Admin Dose 20 MG; Start 11/11/18 at 12:30 Hydrocortisone (Solu-Cortef) 10 mg PC DINNER IV Last administered on 11/12/18 18:01; Admin Dose 10 MG; Start 11/11/18 at 19:00 Levothyroxine Sodium (Synthroid Iv) 50 mcg DAILY@06 IV Last administered on 11/13/18 06:04; Admin Dose 50 MCG; Start 11/12/18 at 06:00 Pantoprazole (Protonix Iv) 40 mg DAILY@06 IV Last administered on 11/13/18 06:04; Admin Dose 40 MG; Start 11/12/18 at 06:00 Caspofungin 50 mg/ Sodium Chloride 250 ml @ 250 mls/hr Q24H IVPB Last administered on 11/12/18 15:59; Admin Dose 250 MLS/HR; Start 11/12/18 at 16:00 Fludrocortisone Acetate (Florinef) 0.05 mg DAILY PO Last administered on 11/13/18 09:54; Admin Dose 0.05 MG; Start 11/12/18 at 09:00 Dextrose/Sodium Chloride 1,000 ml @ 40 mls/hr Q24H IV Last administered on 11/12/18 10:03; Admin Dose 40 MLS/HR; Start 11/12/18 at 09:00 Enoxaparin Sodium (Lovenox) 40 mg DAILY SC Last administered on 11/13/18 10:08; Admin Dose 40 MG; Start 11/12/18 at 09:30 Sodium Bicarbonate (Sodium Bicarbonate Tab) 650 mg BID PO Last administered on 11/13/18 09:54; Admin Dose 650 MG; Start 11/12/18 at 21:00 RIP TOSCANO MD Nov 13, 2018 15:11
--- NOTE | 2018-11-13 15:40 | PN ---
Date/Time of Note Date/Time of Note DATE: 11/13/18 TIME: 15:38 Assessment/Plan VTE Prophylaxis Risk score (from Ns)>0 risk: 1 [place]CD applied [place]from [facility] [place] SCD contraindicated: low risk/ambulating Pharmacological prophylaxis: NA/contraindicated Pharm contraindication: low risk/ambulating Lines/Catheters IV Catheter Type (from [facility] Mid Line Urinary Cath still in place: No Assessment/Plan Hospital Course 38-year-old male with: 1. Hypotension, tachycardia, could be secondary to sepsis secondary to urinary tract infection,/pneumonia 2. Leukocytosis> improved. 3. Acute renal failure, likely secondary to combination of obstruction since the patient has not urinated/combination of prerenal/post the patient was given antibiotic, vancomycin and Zosyn. 4. Hypokalemia. 5. Metabolic acidosis. 6. History of schizophrenia. 7. History of developmental delay. 8. Mental retardation. 9 HX ariadna 10 Hypernatremia likely hypovolemic /on fludricortisone 11 Hypokalemia with diarrhoea Plan - pscy to adjust meds - decrease steroids - encouraged to urinate but uses bad language - iv abx per ID - Bld cx neg so far - cw vanco/ledy/caspofungin - GI/DVT PROPHYLAXSIS Result Diagram: Result Diagram: 11/12/18 0910 11/12/18 1255 Subjective 24 Hr Interval Summary Free Text/Dictation Refusing labs sometimes urinates sometimes does not usiung bad words Exam/Review of Systems Exam Vitals Vital Signs Date Temp Pulse Resp B/P (MAP) Pulse Ox O2 O2 Flow FiO2 Time Delivery Rate 11/13/18 97.1 84 18 106/68 94 14:25 (81) 11/12/18 BIPAP 14:04 Nasal Cannula Intake and Output 11/12/18 11/12/18 11/13/18 1414:59 22:59 06:59 IntakeIntake Total 440 ml 1700 ml 400 ml OutputOutput Total 1200 ml BalanceBalance -760 ml 1700 ml 400 ml Exam refused exam Medications Medication Current Medications Benztropine Mesylate (Cogentin) 1 mg BID PO Last administered on 11/13/18at 09:54; Admin Dose 1 MG; Start 11/08/18 at 09:00 Divalproex Sodium (Depakote) 500 mg BID PO Last administered on 11/13/18 09:53; Admin Dose 500 MG; Start 11/08/18 at 09:00 Testosterone (Androgel) 5 gm DAILY TOP Last administered on 11/10/18 09:38; A dmin Dose 5 GM; Start 11/08/18 at 09:00 Acetaminophen (Tylenol Tab) 650 mg Q6H PRN PO MILD PAIN(1-3)OR ELEVATED TEMP Last administered on 11/10/18 09:38; Admin Dose 650 MG; Start 11/07/18 at 23:30 Ondansetron HCl (Zofran Inj) 4 mg Q6H PRN IV NAUSEA AND/OR VOMITING Last administered on 11/10/18 13:04; Admin Dose 4 MG; Start 11/07/18 at 23:30 Olanzapine (Zyprexa) 15 mg BID PO Last administered on 11/13/18 09:54; Admin Dose 15 MG; Start 11/08/18 at 21:00 Chlorpromazine (Thorazine) 50 mg Q6 PRN IM AGITATION Last administered on 11/12/18 10:32; Admin Dose 50 MG; Start 11/08/18 at 16:00 Vancomycin HCl (Vanco Iv Per Pharmacy) VANCOMYCIN PER PHARMACY PER PROTOCOL XX ; Start 11/10/18 at 13:30 Meropenem/Sodium Chloride 50 ml @ 100 mls/hr Q12 IVPB Last administered on 11/13/18 09:46; Admin Dose 100 MLS/HR; Start 11/10/18 at 13:30 Levothyroxine Sodium (Synthroid Iv) 50 mcg DAILY@06 IV Last administered on 11/13/18 06:04; Admin Dose 50 MCG; Start 11/12/18 at 06:00 Pantoprazole (Protonix Iv) 40 mg DAILY@06 IV Last administered on 11/13/18 06:04; Admin Dose 40 MG; Start 11/12/18 at 06:00 Caspofungin 50 mg/ Sodium Chloride 250 ml @ 250 mls/hr Q24H IVPB Last administered on 11/12/18 15:59; Admin Dose 250 MLS/HR; Start 11/12/18 at 16:00 Fludrocortisone Acetate (Florinef) 0.05 mg DAILY PO Last administered on 11/13/18 09:54; Admin Dose 0.05 MG; Start 11/12/18 at 09:00 Enoxaparin Sodium (Lovenox) 40 mg DAILY SC Last administered on 11/13/18at 10:08; Admin Dose 40 MG; Start 11/12/18 at 09:30 Sodium Bicarbonate (Sodium Bicarbonate Tab) 650 mg BID PO Last administered on 11/13/18at 09:54; Admin Dose 650 MG; Start 11/12/18 at 21:00 Prednisone (Prednisone) 7.5 mg QAM PO ; Start 11/14/18 at 09:00 Prednisone (Prednisone) 2.5 mg PC DINNER PO ; Start 11/13/18 at 19:00 Docusate Sodium (Colace) 250 mg DAILY PO ; Start 11/14/18 at 09:00 VESNA SERNA MD Nov 13, 2018 15:40
[2018-11-13] MEDS: CASPOFUNGIN 50 MG in SOD CHLORIDE 0.9% 250 ML IVPB SCH (16:07)
[2018-11-13] MEDS ORDERED: predniSONE 2.5 MG TAB PO SCH (19:00)
[2018-11-13 20:04] VITALS: BP 139/68; PULSE 90; RESP 18
[2018-11-14 02:00] VITALS: BP 111/71; PULSE 83; RESP 18
[2018-11-14] MEDS: PANTOPRAZOLE 40 MG INJ IV SCH (06:12)
[2018-11-14] MEDS: LEVOTHYROXINE 100 MCG VIAL IV SCH (06:12)
[2018-11-14 08:00] VITALS: BP 111/67; PULSE 76; RESP 18
[2018-11-14] MEDS ORDERED: predniSONE 2.5 MG TAB PO SCH (09:00)
[2018-11-14] MEDS: DIVALPROEX (EC) 500 MG TAB PO SCH ×2 (09:00→20:51)
[2018-11-14] MEDS: MEROPENEM 500MG/50 ML (PMX) 50 ML IVPB SCH ×2 (09:00→11:32)
[2018-11-14] MEDS: ENOXAPARIN 40 MG/0.4 ML SYG SC SCH (09:00)
[2018-11-14] MEDS: DOCUSATE SODIUM 250 MG CAP PO SCH (09:00)
[2018-11-14] MEDS: OLANZAPINE 5 MG TAB PO SCH ×2 (09:00→20:51)
[2018-11-14] MEDS: BENZTROPINE 1 MG TAB PO SCH ×2 (09:00→20:51)
[2018-11-14] MEDS: NA BICARBONATE 650 MG TAB PO SCH ×2 (09:00→20:51)
[2018-11-14] MEDS ORDERED: POTASSIUM CHLORIDE (SR) 20 MEQ TAB PO STA (11:10)
--- NOTE | 2018-11-14 12:18 | CONS ---
Assessment/Plan Assessment/Plan Hospital Course (Demo Recall) No acute events overnight patient looks comfortable no fevers overnight. WBC 5.9 no shift no bands BUN 19 creatinine 2.22 Antimicrobials: Cancidas, vancomycin, meropenem Urine culture grew yeast, not Antonieta albicans. Blood cultures remain negative Physical examination: Chronically ill-appearing middle-aged man in no distress head atraumatic normocephalic neck is supple chest rise symmetrical breath sounds diminished bases heart S1-S2 abdomen distended, bowel sounds present extremities with bilateral lower extremities edema Assessment: 1. Sepsis, present on admission 2. Pneumonia and urinary tract infection 3. Acute renal failure, possibly retention 4. Schizophrenia 5. Mental retardation 6. Medical noncompliance Plan: Remains stable, chest x-ray noted continue present care, antibiotics, follow recommendations of specialists Consultation Date/Type/Reason Admit Date/Time Nov 07, 2018 at 22:29 Initial Consult Date Type of Consult id Requesting Provider: VESNA SERNA MD Date/Time of Note DATE: 11/14/18 TIME: 12:17 Exam/Review of Systems Exam Vitals Vital Signs Date Temp Pulse Resp B/P (MAP) Pulse Ox O2 O2 Flow FiO2 Time Delivery Rate 11/14/18 98.4 76 18 111/67 99 08:00 (82) 11/12/18 BIPAP 14:04 Nasal Cannula Intake and Output 11/13/18 11/13/18 11/14/18 1515:00 23:00 07:00 IntakeIntake Total 50 ml 400 ml 500 ml BalanceBalance 50 ml 400 ml 500 ml Results Result Diagram: 11/14/18 0517 11/14/18 0517 Results 24hrs Laboratory Tests Test 11/13/18 20:57 11/14/18 05:17 White Blood Count 7.5 # 5.9 # Red Blood Count 3.41 L 2.98 L Hemoglobin 10.6 L 9.3 L Hematocrit 32.1 L 27.5 L Mean Corpuscular Volume 94.1 92.3 Mean Corpuscular Hemoglobin 31.1 31.2 Mean Corpuscular Hemoglobin Concent 33.0 33.8 Red Cell Distribution Width 12.0 12.1 Platelet Count 214 # 206 Mean Platelet Volume 10.7 H 10.9 H Immature Granulocytes % 0.500 H 0.500 H Neutrophils % 70.8 67.9 Lymphocytes % 19.5 20.3 Monocytes % 8.0 9.9 Eosinophils % 0.9 1.2 Basophils % 0.3 0.2 Nucleated Red Blood Cells % 0.0 0.0 Immature Granulocytes # 0.040 H 0.030 Neutrophils # 5.3 4.0 Lymphocytes # 1.5 1.2 Monocytes # 0.6 0.6 Eosinophils # 0.1 0.1 Basophils # 0.0 0.0 Nucleated Red Blood Cells # 0.0 0.0 Sodium Level 142 145 H Potassium Level 3.4 L 3.3 L Chloride Level 113 H 113 H Carbon Dioxide Level 21 22 Anion Gap 8 10 Blood Urea Nitrogen 22 H 19 Creatinine 2.19 H 2.22 H Est Glomerular Filtrat Rate mL/min 34 L 34 L Glucose Level 111 88 Calcium Level 7.8 L 8.0 L Phosphorus Level 3.6 Magnesium Level 1.8 Random Vancomycin Level 11.5 Medications Medication Current Medications Benztropine Mesylate (Cogentin) 1 mg BID PO Last administered on 11/13/18 22:27; Admin Dose 1 MG; Start 11/08/18 at 09:00 Divalproex Sodium (Depakote) 500 mg BID PO Last administered on 11/13/18 22:26; Admin Dose 500 MG; Start 11/08/18 at 09:00 Acetaminophen (Tylenol Tab) 650 mg Q6H PRN PO MILD PAIN(1-3)OR ELEVATED TEMP Last administered on 11/10/18 09:38; Admin Dose 650 MG; Start 11/07/18 at 23:30 Ondansetron HCl (Zofran Inj) 4 mg Q6H PRN IV NAUSEA AND/OR VOMITING Last admini stered on 11/10/18 13:04; Admin Dose 4 MG; Start 11/07/18 at 23:30 Olanzapine (Zyprexa) 15 mg BID PO Last administered on 11/13/18 22:27; Admin Dose 15 MG; Start 11/08/18 at 21:00 Chlorpromazine (Thorazine) 50 mg Q6 PRN IM AGITATION Last administered on 11/12/18 10:32; Admin Dose 50 MG; Start 11/08/18 at 16:00 Vancomycin HCl (Vanco Iv Per Pharmacy) VANCOMYCIN PER PHARMACY PER PROTOCOL XX ; Start 11/10/18 at 13:30 Meropenem/Sodium Chloride 50 ml @ 100 mls/hr Q12 IVPB Last administered on 11/14/18 11:32; Admin Dose 100 MLS/HR; Start 11/10/18 at 13:30 Levothyroxine Sodium (Synthroid Iv) 50 mcg DAILY@06 IV Last administered on 11/14/18 06:12; Admin Dose 50 MCG; Start 11/12/18 at 06:00 Pantoprazole (Protonix Iv) 40 mg DAILY@06 IV Last administered on 11/14/18 06:12; Admin Dose 40 MG; Start 11/12/18 at 06:00 Caspofungin 50 mg/ Sodium Chloride 250 ml @ 250 mls/hr Q24H IVPB Last administered on 11/13/18 16:07; Admin Dose 250 MLS/HR; Start 11/12/18 at 16:00 Enoxaparin Sodium (Lovenox) 40 mg DAILY SC Last administered on 11/13/18 10:08; Admin Dose 40 MG; Start 11/12/18 at 09:30 Sodium Bicarbonate (Sodium Bicarbonate Tab) 650 mg BID PO Last administered on 11/13/18 22:27; Admin Dose 650 MG; Start 11/12/18 at 21:00 Prednisone (Prednisone) 7.5 mg QAM PO ; Start 11/14/18 at 09:00 Prednisone (Prednisone) 2.5 mg PC DINNER PO Last administered on 11/13/18 22:26; Admin Dose 2.5 MG; Start 11/13/18 at 19:00 Docusate Sodium (Colace) 250 mg DAILY PO ; Start 11/14/18 at 09:00 Fludrocortisone Acetate (Florinef) 0.05 mg MONWEDFRI PO ; Start 11/15/18 at 09:00 RENO KAYE NP Nov 14, 2018 12:18
[2018-11-14 14:00] VITALS: BP 114/66; PULSE 101; RESP 20
--- NOTE | 2018-11-14 14:13 | CONS ---
Assessment/Plan Assessment/Plan Problems: (1) Adrenal insufficiency Status: Chronic Comment: K now mildly low. Will reduce the fludricortisone to 0.05 mg qMWF. Pt. again intermittently cooperative w/ oral med dosing and needs his corticosteroids so will switch back to IV hydrocortisone 20 mg qam and 10 mg qpm. Will cont. w/ IV for the duration of the hospital stay. (2) Testicular hypofunction Status: Chronic Comment: Cont. topical testosterone or may hold to make pt. more cooperative. 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 LT4 daily Consultation Date/Type/Reason Admit Date/Time Nov 07, 2018 at 22:29 Initial Consult Date 11/10/18 Type of Consult Endocrinology Reason for Consultation Adrenal insufficiency Requesting Provider: VESNA SERNA MD Date/Time of Note DATE: 11/14/18 TIME: 14:10 24 HR Interval Summary Subjective hx not possible: pt non-verbal (sleeping) Exam/Review of Systems Exam Vitals VS - Last 72 Hours, by Label Date Temp Pulse Resp B/P (MAP) Pulse Ox O2 O2 Flow FiO2 Time Delivery Rate 11/14/18 98.4 76 18 111/67 99 08:00 (82) 11/14/18 98.4 83 18 111/71 96 02:00 (84) 11/13/18 98.0 90 18 139/68 97 20:04 (91) 11/13/18 97.1 84 18 106/68 94 14:25 (81) 11/13/18 97.6 76 17 108/72 98 07:58 (84) 11/13/18 98.2 67 18 108/67 96 01:54 (81) 11/12/18 98.3 89 18 107/61 95 19:49 (76) 11/12/18 97.8 112 18 110/63 96 BIPAP 14:04 (79) Nasal Cannula 11/12/18 97.4 70 18 108/73 93 Room Air 07:19 (85) 11/12/18 97.0 70 16 103/63 96 01:27 (76) 11/11/18 97.3 80 16 90/54 (66) 94 19:41 11/11/18 98.5 101 26 90/51 (64) 89 18:02 11/11/18 98.0 15:38 11/11/18 101.0 14:53 Vital Signs Date Temp Pulse Resp B/P (MAP) Pulse Ox O2 O2 Flow FiO2 Time Delivery Rate 11/14/18 98.4 76 18 111/67 99 08:00 (82) 11/12/18 BIPAP 14:04 Nasal Cannula Intake and Output 11/13/18 11/13/18 11/14/18 1515:00 23:00 07:00 IntakeIntake Total 50 ml 400 ml 500 ml BalanceBalance 50 ml 400 ml 500 ml Constitutional: non-verbal; No alert (sleeping) Respiratory: clear to auscultation, normal air movement Cardiovascular: regular rate and rhythm, nl pulses; No edema, No murmurs/extra sounds, No rub Gastrointestinal: soft, nl liver, spleen, non-tender, bowel sounds; No mass, No rebound or guarding Musculoskeletal: nl extremities to inspection Extremities: normal pulses; No cyanosis, No clubbing, No edema Neurological: [employer] II-XII intact, nl mental status, nl speech, nl strength Results Result Diagram: 11/14/1851611/14/18 0517 Results 24hrs Laboratory Tests Test 11/13/18 20:57 11/14/18 05:17 White Blood Count 7.5 # 5.9 # Red Blood Count 3.41 L 2.98 L Hemoglobin 10.6 L 9.3 L Hematocrit 32.1 L 27.5 L Mean Corpuscular Volume 94.1 92.3 Mean Corpuscular Hemoglobin 31.1 31.2 Mean Corpuscular Hemoglobin Concent 33.0 33.8 Red Cell Distribution Width 12.0 12.1 Platelet Count 214 # 206 Mean Platelet Volume 10.7 H 10.9 H Immature Granulocytes % 0.500 H 0.500 H Neutrophils % 70.8 67.9 Lymphocytes % 19.5 20.3 Monocytes % 8.0 9.9 Eosinophils % 0.9 1.2 Basophils % 0.3 0.2 Nucleated Red Blood Cells % 0.0 0.0 Immature Granulocytes # 0.040 H 0.030 Neutrophils # 5.3 4.0 Lymphocytes # 1.5 1.2 Monocytes # 0.6 0.6 Eosinophils # 0.1 0.1 Basophils # 0.0 0.0 Nucleated Red Blood Cells # 0.0 0.0 Sodium Level 142 145 H Potassium Level 3.4 L 3.3 L Chloride Level 113 H 113 H Carbon Dioxide Level 21 22 Anion Gap 8 10 Blood Urea Nitrogen 22 H 19 Creatinine 2.19 H 2.22 H Est Glomerular Filtrat Rate mL/min 34 L 34 L Glucose Level 111 88 Calcium Level 7.8 L 8.0 L Phosphorus Level 3.6 Magnesium Level 1.8 Random Vancomycin Level 11.5 Medications Medication Current Medications Benztropine Mesylate (Cogentin) 1 mg BID PO Last administered on 11/13/18 22:27; Admin Dose 1 MG; Start 11/08/18 at 09:00 Divalproex Sodium (Depakote) 500 mg BID PO Last administered on 11/13/18 22:26; Admin Dose 500 MG; Start 11/08/18 at 09:00 Acetaminophen (Tylenol Tab) 650 mg Q6H PRN PO MILD PAIN(1-3)OR ELEVATED TEMP Last administered on 11/10/18 09:38; Admin Dose 650 MG; Start 11/07/18 at 23:30 Ondansetron HCl (Zofran Inj) 4 mg Q6H PRN IV NAUSEA AND/OR VOMITING Last administered on 11/10/18 13:04; Admin Dose 4 MG; Start 11/07/18 at 23:30 Olanzapine (Zyprexa) 15 mg BID PO Last administered on 11/13/18 22:27; Admin D ose 15 MG; Start 11/08/18 at 21:00 Chlorpromazine (Thorazine) 50 mg Q6 PRN IM AGITATION Last administered on 11/12/18 10:32; Admin Dose 50 MG; Start 11/08/18 at 16:00 Vancomycin HCl (Vanco Iv Per Pharmacy) VANCOMYCIN PER PHARMACY PER PROTOCOL XX ; Start 11/10/18 at 13:30 Meropenem/Sodium Chloride 50 ml @ 100 mls/hr Q12 IVPB Last administered on 11/14/18 11:32; Admin Dose 100 MLS/HR; Start 11/10/18 at 13:30 Levothyroxine Sodium (Synthroid Iv) 50 mcg DAILY@06 IV Last administered on 11/14/18 06:12; Admin Dose 50 MCG; Start 11/12/18 at 06:00 Pantoprazole (Protonix Iv) 40 mg DAILY@06 IV Last administered on 3/5/19at 06:12; Admin Dose 40 MG; Start 11/12/18 at 06:00 Caspofungin 50 mg/ Sodium Chloride 250 ml @ 250 mls/hr Q24H IVPB Last administered on 11/13/18at 16:07; Admin Dose 250 MLS/HR; Start 11/12/18 at 16:00 Enoxaparin Sodium (Lovenox) 40 mg DAILY SC Last administered on 11/13/18at 10:08; Admin Dose 40 MG; Start 11/12/18 at 09:30 Sodium Bicarbonate (Sodium Bicarbonate Tab) 650 mg BID PO Last administered on 11/13/18at 22:27; Admin Dose 650 MG; Start 11/12/18 at 21:00 Prednisone (Prednisone) 7.5 mg QAM PO ; Start 11/14/18 at 09:00 Prednisone (Prednisone) 2.5 mg PC DINNER PO Last administered on 11/13/18at 22:26; Admin Dose 2.5 MG; Start 11/13/18 at 19:00 Docusate Sodium (Colace) 250 mg DAILY PO ; Start 11/14/18 at 09:00 Fludrocortisone Acetate (Florinef) 0.05 mg MONWEDFRI PO ; Start 11/15/18 at 09:00 Vancomycin HCl 250 ml @ 125 mls/hr Q36H IVPB ; Start 11/14/18 at 15:00 RIP TOSCANO MD Nov 14, 2018 14:13
[2018-11-14] MEDS: HYDROCORTISONE 100 MG INJ IV SCH ×2 (14:48→18:11)
[2018-11-14] MEDS: VANCOMYCIN 1 GM 250 ML IVPB SCH (14:50)
--- NOTE | 2018-11-14 15:04 | PN ---
Date/Time of Note Date/Time of Note DATE: 11/14/18 TIME: 15:00 Assessment/Plan VTE Prophylaxis Risk score (from [facility] [place])>0 risk: 1 SCD applied (from [facility] [place]): No SCD contraindicated: low risk/ambulating Pharmacological prophylaxis: NA/contraindicated Pharm contraindication: low risk/ambulating Lines/Catheters IV C[facility]ter Type (from [facility] Mid Line Urinary Cath still in place: No Assessment/Plan Hospital Course 38-year-old male with: 1. Hypotension, tachycardia, could be secondary to sepsis secondary to urinary tract infection,/pneumonia 2. Leukocytosis> improved. 3. Acute renal failure, likely secondary to combination of obstruction since the patient has not urinated/combination of prerenal/post the patient was given antibiotic, vancomycin and Zosyn.Cr stable Likely ATN /sepsis 4. Hypokalemia. 5. Metabolic acidosis. 6. History of schizophrenia. 7. History of developmental delay. 8. Mental retardation. 9 HX ariadna 10 Hypernatremia likely hypovolemic /on fludricortisone 11 Hypokalemia with diarrhoea Plan - cw vanco/meropnem/caspofungin - No fevers last 24 hrs >? taper per ID - encouraged to urinate but uses bad language - CW Fludricortisone/hydrocortisone per Endo - bld cx neg so far -cw levotyhroxine - cw sodium bicarb GI/DVT PROPHYLAXSIS Result Diagram: 11/14/1851611/14/18 0517 Results 24hrs Laboratory Tests Test 11/13/18 20:57 11/14/18 05:17 White Blood Count 7.5 # 5.9 # Red Blood Count 3.41 L 2.98 L Hemoglobin 10.6 L 9.3 L Hematocrit 32.1 L 27.5 L Mean Corpuscular Volume 94.1 92.3 Mean Corpuscular Hemoglobin 31.1 31.2 Mean Corpuscular Hemoglobin Concent 33.0 33.8 Red Cell Distribution Width 12.0 12.1 Platelet Count 214 # 206 Mean Platelet Volume 10.7 H 10.9 H Immature Granulocytes % 0.500 H 0.500 H Neutrophils % 70.8 67.9 Lymphocytes % 19.5 20.3 Monocytes % 8.0 9.9 Eosinophils % 0.9 1.2 Basophils % 0.3 0.2 Nucleated Red Blood Cells % 0.0 0.0 Immature Granulocytes # 0.040 H 0.030 Neutrophils # 5.3 4.0 Lymphocytes # 1.5 1.2 Monocytes # 0.6 0.6 Eosinophils # 0.1 0.1 Basophils # 0.0 0.0 Nucleated Red Blood Cells # 0.0 0.0 Sodium Level 142 145 H Potassium Level 3.4 L 3.3 L Chloride Level 113 H 113 H Carbon Dioxide Level 21 22 Anion Gap 8 10 Blood Urea Nitrogen 22 H 19 Creatinine 2.19 H 2.22 H Est Glomerular Filtrat Rate mL/min 34 L 34 L Glucose Level 111 88 Calcium Level 7.8 L 8.0 L Phosphorus Level 3.6 Magnesium Level 1.8 Random Vancomycin Level 11.5 Subjective 24 Hr Interval Summary Free Text/Dictation no fevers stiff refusing some meds, getting iv abx though Exam/Review of Systems Exam Vitals Vital Signs Date Temp Pulse Resp B/P (MAP) Pulse Ox O2 O2 Flow FiO2 Time Delivery Rate 11/14/18 98.4 76 18 111/67 99 08:00 (82) 11/12/18 BIPAP 14:04 Nasal Cannula Intake and Output 11/13/18 11/13/18 11/14/18 1515:00 23:00 07:00 IntakeIntake Total 50 ml 400 ml 500 ml BalanceBalance 50 ml 400 ml 500 ml Exam Awake and alert neck :supple abdomen distende Results Results 24hrs Laboratory Tests Test 11/13/18 20:57 11/14/18 05:17 White Blood Count 7.5 # 5.9 # Red Blood Count 3.41 L 2.98 L Hemoglobin 10.6 L 9.3 L Hematocrit 32.1 L 27.5 L Mean Corpuscular Volume 94.1 92.3 Mean Corpuscular Hemoglobin 31.1 31.2 Mean Corpuscular Hemoglobin Concent 33.0 33.8 Red Cell Distribution Width 12.0 12.1 Platelet Count 214 # 206 Mean Platelet Volume 10.7 H 10.9 H Immature Granulocytes % 0.500 H 0.500 H Neutrophils % 70.8 67.9 Lymphocytes % 19.5 20.3 Monocytes % 8.0 9.9 Eosinophils % 0.9 1.2 Basophils % 0.3 0.2 Nucleated Red Blood Cells % 0.0 0.0 Immature Granulocytes # 0.040 H 0.030 Neutrophils # 5.3 4.0 Lymphocytes # 1.5 1.2 Monocytes # 0.6 0.6 Eosinophils # 0.1 0.1 Basophils # 0.0 0.0 Nucleated Red Blood Cells # 0.0 0.0 Sodium Level 142 145 H Potassium Level 3.4 L 3.3 L Chloride Level 113 H 113 H Carbon Dioxide Level 21 22 Anion Gap 8 10 Blood Urea Nitrogen 22 H 19 Creatinine 2.19 H 2.22 H Est Glomerular Filtrat Rate mL/min 34 L 34 L Glucose Level 111 88 Calcium Level 7.8 L 8.0 L Phosphorus Level 3.6 Magnesium Level 1.8 Random Vancomycin Level 11.5 Medications Medication Current Medications Benztropine Mesylate (Cogentin) 1 mg BID PO Last administered on 11/13/18 22:27; Admin Dose 1 MG; Start 11/08/18 at 09:00 Divalproex Sodium (Depakote) 500 mg BID PO Last administered on 11/13/18 22:26; Admin Dose 500 MG; Start 11/08/18 at 09:00 Acetaminophen (Tylenol Tab) 650 mg Q6H PRN PO MILD PAIN(1-3)OR ELEVATED TEMP Last administered on 11/10/18 09:38; Admin Dose 650 MG; Start 11/07/18 at 23:30 Ondansetron HCl (Zofran Inj) 4 mg Q6H PRN IV NAUSEA AND/OR VOMITING Last administered on 11/10/18 13:04; Admin Dose 4 MG; Start 11/07/18 at 23:30 Olanzapine (Zyprexa) 15 mg BID PO Last administered on 11/13/18 22:27; Admin Dose 15 MG; Start 11/08/18 at 21:00 Chlorpromazine (Thorazine) 50 mg Q6 PRN IM AGITATION Last administered on 11/12/18 10:32; Admin Dose 50 MG; Start 11/08/18 at 16:00 Vancomycin HCl (Vanco Iv Per Pharmacy) VANCOMYCIN PER PHARMACY PER PROTOCOL XX ; Start 11/10/18 at 13:30 Meropenem/Sodium Chloride 50 ml @ 100 mls/hr Q12 IVPB Last administered on 11/14/18 11:32; Admin Dose 100 MLS/HR; Start 11/10/18 at 13:30 Levothyroxine Sodium (Synthroid Iv) 50 mcg DAILY@06 IV Last administered on 11/14/18 06:12; Admin Dose 50 MCG; Start 11/12/18 at 06:00 Pantoprazole (Protonix Iv) 40 mg DAILY@06 IV Last administered on 11/14/18 06:12; Admin Dose 40 MG; Start 11/12/18 at 06:00 Caspofungin 50 mg/ Sodium Chloride 250 ml @ 250 mls/hr Q24H IVPB Last administered on 11/13/18 16:07; Admin Dose 250 MLS/HR; Start 11/12/18 at 16:00 Enoxaparin Sodium (Lovenox) 40 mg DAILY SC Last administered on 11/13/18 10:08; Admin Dose 40 MG; Start 11/12/18 at 09:30 Sodium Bicarbonate (Sodium Bicarbonate Tab) 650 mg BID PO Last administered on 11/13/18 22:27; Admin Dose 650 MG; Start 11/12/18 at 21:00 Docusate Sodium (Colace) 250 mg DAILY PO ; Start 11/14/18 at 09:00 Fludrocortisone Acetate (Florinef) 0.05 mg MONWEDFRI PO ; Start 11/15/18 at 09:00 Vancomycin HCl 250 ml @ 125 mls/hr Q36H IVPB Last administered on 11/14/18 14:50; Admin Dose 125 MLS/HR; Start 11/14/18 at 15:00 Hydrocortisone (Solu-Cortef) 20 mg QAM IV Last administered on 11/14/18at 14:48; Admin Dose 20 MG; Start 11/14/18 at 14:30 Hydrocortisone (Solu-Cortef) 10 mg PC DINNER IV ; Start 11/14/18 at 19:00 VESNA SERNA MD Nov 14, 2018 15:04
[2018-11-14] MEDS: CASPOFUNGIN 50 MG in SOD CHLORIDE 0.9% 250 ML IVPB SCH (17:11)
[2018-11-14 19:49] VITALS: BP 103/70; PULSE 96; RESP 20
[2018-11-15 01:41] VITALS: BP 99/65; PULSE 79; RESP 20
[2018-11-15] MEDS: LEVOTHYROXINE 100 MCG VIAL IV SCH (05:35)
[2018-11-15] MEDS: PANTOPRAZOLE 40 MG INJ IV SCH (05:35)
[2018-11-15 08:11] VITALS: BP 140/76; PULSE 83; RESP 83
[2018-11-15] MEDS: ENOXAPARIN 40 MG/0.4 ML SYG SC SCH (09:00)
[2018-11-15] MEDS: HYDROCORTISONE 100 MG INJ IV SCH ×2 (09:02→18:05)
[2018-11-15] MEDS: DIVALPROEX (EC) 500 MG TAB PO SCH ×2 (09:03→22:36)
[2018-11-15] MEDS: DOCUSATE SODIUM 250 MG CAP PO SCH (09:03)
[2018-11-15] MEDS: OLANZAPINE 5 MG TAB PO SCH ×2 (09:03→22:36)
[2018-11-15] MEDS: BENZTROPINE 1 MG TAB PO SCH ×2 (09:03→22:36)
[2018-11-15] MEDS: NA BICARBONATE 650 MG TAB PO SCH (09:03)
[2018-11-15] MEDS: FLUDROCORTISONE 0.1 MG TAB PO SCH (09:03)
[2018-11-15] MEDS: MEROPENEM 500MG/50 ML (PMX) 50 ML IVPB SCH ×2 (09:05→22:36)
[2018-11-15] MEDS ORDERED: POTASSIUM CHLORIDE (SR) 20 MEQ TAB PO STA (10:27)
--- NOTE | 2018-11-15 10:34 | PN ---
Date/Time of Note Date/Time of Note DATE: 11/15/18 TIME: 10:29 Assessment/Plan VTE Prophylaxis Risk score (from [facility] [place])>0 risk: 1 SCD applied (from [facility] [place] No SCD contraindicated: low risk/ambulating Pharmacological prophylaxis: NA/contraindicated Pharm contraindication: low risk/ambulating Lines/Catheters IV Catheter Type (from [facility] Peripheral IV Urinary Cath still in place: No Assessment/Plan Hospital Course 38-year-old male with: 1. Hypotension, tachycardia, could be secondary to sepsis secondary to urinary tract infection,/pneumonia 2. Leukocytosis> improved. 3. Acute renal failure, likely secondary to combination of obstruction since the patient has not urinated/combination of prerenal/post the patient was given antibiotic, vancomycin and Zosyn.Cr stable Likely ATN /sepsis, creatinine is down trending 4. Hypokalemia. 5. Metabolic acidosis. 6. History of schizophrenia. 7. History of developmental delay. 8. Mental retardation. 9 HX ariadna 10 Hypernatremia likely hypovolemic /on fludricortisone 11 Hypokalemia with diarrhoea resolved Plan - cw vanco/meropnem/caspofungin? Antibiotic tapering per ID since patient has normal WBC and afebrile for more than 24 hours -encourage to use the urinal - CW Fludricortisone/hydrocortisone per Endo - bld cx neg so far -cw levotyhroxine -dc sodium bicarb as kidney function recovering -cw with the olanzapine/Cogentin/ thorazine per psych GI/DVT PROPHYLAXSIS Result Diagram: 11/15/18 0658 11/15/18 0658 Results 24hrs Laboratory Tests Test 11/15/18 06:58 White Blood Count 6.3 Red Blood Count 3.16 L Hemoglobin 9.7 L Hematocrit 29.9 L Mean Corpuscular Volume 94.6 Mean Corpuscular Hemoglobin 30.7 Mean Corpuscular Hemoglobin Concent 32.4 Red Cell Distribution Width 12.0 Platelet Count 211 Mean Platelet Volume 10.4 Immature Granulocytes % 1.000 H Neutrophils % 61.2 Lymphocytes % 26.3 Monocytes % 10.8 Eosinophils % 0.5 Basophils % 0.2 Nucleated Red Blood Cells % 0.0 Immature Granulocytes # 0.060 H Neutrophils # 3.9 Lymphocytes # 1.7 Monocytes # 0.7 Eosinophils # 0.0 Basophils # 0.0 Nucleated Red Blood Cells # 0.0 Sodium Level 147 H Potassium Level 3.5 Chloride Level 116 H Carbon Dioxide Level 24 Anion Gap 7 Blood Urea Nitrogen 18 Creatinine 2.05 H Est Glomerular Filtrat Rate mL/min 37 L Glucose Level 85 Calcium Level 8.4 Phosphorus Level 3.4 Magnesium Level 1.9 Subjective 24 Hr Interval Summary Free Text/Dictation Doing better. Patient even urinated in the urinal Patient cooperative today Exam/Review of Systems Exam Vitals Vital Signs Date Temp Pulse Resp B/P (MAP) Pulse Ox O2 O2 Flow FiO2 Time Delivery Rate 11/15/18 98.2 83 83 140/76 96 Room Air 08:11 (97) Intake and Output 11/14/18 11/14/18 11/15/18 1515:00 23:00 07:00 IntakeIntake Total 530 ml 540 ml OutputOutput Total 700 ml 1208 ml BalanceBalance -170 ml -668 ml Exam General awake alert oriented Supple Clear Abdomen is distended Results Results 24hrs Laboratory Tests Test 11/15/18 06:58 White Blood Count 6.3 Red Blood Count 3.16 L Hemoglobin 9.7 L Hematocrit 29.9 L Mean Corpuscular Volume 94.6 Mean Corpuscular Hemoglobin 30.7 Mean Corpuscular Hemoglobin Concent 32.4 Red Cell Distribution Width 12.0 Platelet Count 211 Mean Platelet Volume 10.4 Immature Granulocytes % 1.000 H Neutrophils % 61.2 Lymphocytes % 26.3 Monocytes % 10.8 Eosinophils % 0.5 Basophils % 0.2 Nucleated Red Blood Cells % 0.0 Immature Granulocytes # 0.060 H Neutrophils # 3.9 Lymphocytes # 1.7 Monocytes # 0.7 Eosinophils # 0.0 Basophils # 0.0 Nucleated Red Blood Cells # 0.0 Sodium Level 147 H Potassium Level 3.5 Chloride Level 116 H Carbon Dioxide Level 24 Anion Gap 7 Blood Urea Nitrogen 18 Creatinine 2.05 H Est Glomerular Filtrat Rate mL/min 37 L Glucose Level 85 Calcium Level 8.4 Phosphorus Level 3.4 Magnesium Level 1.9 Medications Medication Current Medications Benztropine Mesylate (Cogentin) 1 mg BID PO Last administered on 11/15/18at 09:03; Admin Dose 1 MG; Start 11/08/18 at 09:00 Divalproex Sodium (Depakote) 500 mg BID PO Last administered on 11/15/18 09:03; Admin Dose 500 MG; Start 11/08/18 at 09:00 Acetaminophen (Tylenol Tab) 650 mg Q6H PRN PO MILD PAIN(1-3)OR ELEVATED TEMP Last administered on 11/10/18 09:38; Admin Dose 650 MG; Start 11/07/18 at 23:30 Ondansetron HCl (Zofran Inj) 4 mg Q6H PRN IV NAUSEA AND/OR VOMITING Last administered on 11/10/18 13:04; Admin Dose 4 MG; Start 11/07/18 at 23:30 Olanzapine (Zyprexa) 15 mg BID PO Last administered on 11/15/18 09:03; Admin Dose 15 MG; Start 11/08/18 at 21:00 Chlorpromazine (Thorazine) 50 mg Q6 PRN IM AGITATION Last administered on 11/12/18 10:32; Admin Dose 50 MG; Start 11/08/18 at 16:00 Vancomycin HCl (Vanco Iv Per Pharmacy) VANCOMYCIN PER PHARMACY PER PROTOCOL XX ; Start 11/10/18 at 13:30 Meropenem/Sodium Chloride 50 ml @ 100 mls/hr Q12 IVPB Last administered on 11/15/18 09:05; Admin Dose 100 MLS/HR; Start 11/10/18 at 13:30 Levothyroxine Sodium (Synthroid Iv) 50 mcg DAILY@06 IV Last administered on 11/15/18 05:35; Admin Dose 50 MCG; Start 11/12/18 at 06:00 Pantoprazole (Protonix Iv) 40 mg DAILY@06 IV Last administered on 11/15/18 05:35; Admin Dose 40 MG; Start 11/12/18 at 06:00 Caspofungin 50 mg/ Sodium Chloride 250 ml @ 250 mls/hr Q24H IVPB Last administered on 11/14/18 17:11; Admin Dose 250 MLS/HR; Start 11/12/18 at 16:00 Enoxaparin Sodium (Lovenox) 40 mg DAILY SC Last administered on 11/13/18 10:08; Admin Dose 40 MG; Start 11/12/18 at 09:30 Docusate Sodium (Colace) 250 mg DAILY PO Last administered on 11/15/18 09:03; Admin Dose 250 MG; Start 11/14/18 at 09:00 Fludrocortisone Acetate (Florinef) 0.05 mg MONWEDFRI PO Last administered on 11/15/18 09:03; Admin Dose 0.05 MG; Start 11/15/18 at 09:00 Vancomycin HCl 250 ml @ 125 mls/hr Q36H IVPB Last administered on 11/14/18at 14:50; Admin Dose 125 MLS/HR; Start 11/14/18 at 15:00 Hydrocortisone (Solu-Cortef) 20 mg QAM IV Last administered on 11/15/18at 09:02; Admin Dose 20 MG; Start 11/14/18 at 14:30 Hydrocortisone (Solu-Cortef) 10 mg PC DINNER IV Last administered on 11/14/18at 18:11; Admin Dose 10 MG; Start 11/14/18 at 19:00 VESNA SERNA MD Nov 15, 2018 10:34
--- NOTE | 2018-11-15 11:18 | CONS ---
Assessment/Plan Assessment/Plan Hospital Course (Demo Recall) All noted. No acute events overnight Antimicrobials: Cancidas, vancomycin, meropenem Urine culture grew yeast, not Antonieta albicans. Blood cultures remain negative Physical examination: Chronically ill-appearing middle-aged man in no distress head atraumatic normocephalic neck is supple chest rise symmetrical breath sounds diminished bases heart S1-S2 abdomen distended, bowel sounds present extremities with bilateral lower extremities edema Assessment: 1. Sepsis, present on admission 2. Pneumonia and urinary tract infection 3. Acute renal failure, possibly retention 4. Schizophrenia 5. Mental retardation 6. Medical noncompliance Plan: Remains stable, continue present care, antibiotics, follow recommendations of specialists Consultation Date/Type/Reason Admit Date/Time Nov 07, 2018 at 22:29 Initial Consult Date Type of Consult id Requesting Provider: VESNA SERNA MD Date/Time of Note DATE: 11/15/18 TIME: 11:18 Exam/Review of Systems Exam Vitals Vital Signs Date Temp Pulse Resp B/P (MAP) Pulse Ox O2 O2 Flow FiO2 Time Delivery Rate 11/15/18 98.2 83 83 140/76 96 Room Air 08:11 (97) Intake and Output 11/14/18 11/14/18 11/15/18 1515:00 23:00 07:00 IntakeIntake Total 530 ml 540 ml OutputOutput Total 700 ml 1208 ml BalanceBalance -170 ml -668 ml Results Result Diagram: 11/15/18 0658 11/15/18 0658 Results 24hrs Laboratory Tests Test 11/15/18 06:58 White Blood Count 6.3 Red Blood Count 3.16 L Hemoglobin 9.7 L Hematocrit 29.9 L Mean Corpuscular Volume 94.6 Mean Corpuscular Hemoglobin 30.7 Mean Corpuscular Hemoglobin Concent 32.4 Red Cell Distribution Width 12.0 Platelet Count 211 Mean Platelet Volume 10.4 Immature Granulocytes % 1.000 H Neutrophils % 61.2 Lymphocytes % 26.3 Monocytes % 10.8 Eosinophils % 0.5 Basophils % 0.2 Nucleated Red Blood Cells % 0.0 Immature Granulocytes # 0.060 H Neutrophils # 3.9 Lymphocytes # 1.7 Monocytes # 0.7 Eosinophils # 0.0 Basophils # 0.0 Nucleated Red Blood Cells # 0.0 Sodium Level 147 H Potassium Level 3.5 Chloride Level 116 H Carbon Dioxide Level 24 Anion Gap 7 Blood Urea Nitrogen 18 Creatinine 2.05 H Est Glomerular Filtrat Rate mL/min 37 L Glucose Level 85 Calcium Level 8.4 Phosphorus Level 3.4 Magnesium Level 1.9 Medications Medication Current Medications Benztropine Mesylate (Cogentin) 1 mg BID PO Last administered on 11/15/18 09:03; Admin Dose 1 MG; Start 11/08/18 at 09:00 Divalproex Sodium (Depakote) 500 mg BID PO Last administered on 11/15/18 09:03; Admin Dose 500 MG; Start 11/08/18 at 09:00 Acetaminophen (Tylenol Tab) 650 mg Q6H PRN PO MILD PAIN(1-3)OR ELEVATED TEMP Last administered on 11/10/18 09:38; Admin Dose 650 MG; Start 11/07/18 at 23:30 Ondansetron HCl (Zofran Inj) 4 mg Q6H PRN IV NAUSEA AND/OR VOMITING Last administered on 11/10/18 13:04; Admin Dose 4 MG; Start 11/07/18 at 23:30 Olanzapine (Zyprexa) 15 mg BID PO Last administered on 11/15/18 09:03; Admin Dose 15 MG; Start 11/08/18 at 21:00 Chlorpromazine (Thorazine) 50 mg Q6 PRN IM AGITATION Last administered on 11/12/18 10:32; Admin Dose 50 MG; Start 11/08/18 at 16:00 Vancomycin HCl (Vanco Iv Per Pharmacy) VANCOMYCIN PER PHARMACY PER PROTOCOL XX ; Start 11/10/18 at 13:30 Meropenem/Sodium Chloride 50 ml @ 100 mls/hr Q12 IVPB Last administered on 11/15/18 09:05; Admin Dose 100 MLS/HR; Start 11/10/18 at 13:30 Levothyroxine Sodium (Synthroid Iv) 50 mcg DAILY@06 IV Last administered on 11/15/18 05:35; Admin Dose 50 MCG; Start 11/12/18 at 06:00 Pantoprazole (Protonix Iv) 40 mg DAILY@06 IV Last administered on 11/15/18 05:35; Admin Dose 40 MG; Start 11/12/18 at 06:00 Caspofungin 50 mg/ Sodium Chloride 250 ml @ 250 mls/hr Q24H IVPB Last administered on 11/14/18 17:11; Admin Dose 250 MLS/HR; Start 11/12/18 at 16:00 Enoxaparin Sodium (Lovenox) 40 mg DAILY SC Last administered on 11/13/18 10:08; Admin Dose 40 MG; Start 11/12/18 at 09:30 Docusate Sodium (Colace) 250 mg DAILY PO Last administered on 11/15/18 09:03; Admin Dose 250 MG; Start 11/14/18 at 09:00 Fludrocortisone Acetate (Florinef) 0.05 mg MONWEDFRI PO Last administered on 11/15/18 09:03; Admin Dose 0.05 MG; Start 11/15/18 at 09:00 Vancomycin HCl 250 ml @ 125 mls/hr Q36H IVPB Last administered on 11/14/18 14:50; Admin Dose 125 MLS/HR; Start 11/14/18 at 15:00 Hydrocortisone (Solu-Cortef) 20 mg QAM IV Last administered on 11/15/18 09:02; Admin Dose 20 MG; Start 11/14/18 at 14:30 Hydrocortisone (Solu-Cortef) 10 mg PC DINNER IV Last administered on 11/14/18 18:11; Admin Dose 10 MG; Start 11/14/18 at 19:00 RENO KAYE NP Nov 15, 2018 11:18
[2018-11-15 14:04] VITALS: BP 126/97; PULSE 124; RESP 18
--- NOTE | 2018-11-15 14:11 | CONS ---
Assessment/Plan Assessment/Plan Problems: (1) Adrenal insufficiency Status: Chronic Comment: Pt. back on IV hydrocortisone which we will continue up through d/c. K NL although sodium mildly high. Pt. rec'ed low-dose fludricortisone today. Will not receive tomorrow. Monitor Na and K daily. (2) Testicular hypofunction Status: Chronic Comment: Cont. topical testosterone when pt. willing to take it. 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 LT4 IV daily Consultation Date/Type/Reason Admit Date/Time Nov 07, 2018 at 22:29 Initial Consult Date 11/10/18 Type of Consult Endocrinology Reason for Consultation Adrenal Insufficiency Requesting Provider: VESNA SERNA MD Date/Time of Note DATE: 11/15/18 TIME: 14:09 24 HR Interval Summary Constitutional: no complaints, improved Detailed Summary Respiratory: no complaints Cardiovascular: no complaints Gastrointestinal: no complaints Genitourinary: no complaints Musculoskeletal: no complaints Neurologic: no complaints Exam/Review of Systems Exam Vitals VS - Last 72 Hours, by Label Date Temp Pulse Resp B/P (MAP) Pulse Ox O2 O2 Flow FiO2 Time Delivery Rate 11/15/18 98.2 83 83 140/76 96 Room Air 08:11 (97) 11/15/18 97.9 79 20 99/65 (76) 98 01:41 11/14/18 98.6 96 20 103/70 95 19:49 (81) 11/14/18 98.5 101 20 114/66 99 14:00 (82) 11/14/18 98.4 76 18 111/67 99 08:00 (82) 11/14/18 98.4 83 18 111/71 96 02:00 (84) 11/13/18 98.0 90 18 139/68 97 20:04 (91) 11/13/18 97.1 84 18 106/68 94 14:25 (81) 11/13/18 97.6 76 17 108/72 98 07:58 (84) 11/13/18 98.2 67 18 108/67 96 01:54 (81) 11/12/18 98.3 89 18 107/61 95 19:49 (76) Vital Signs Date Temp Pulse Resp B/P (MAP) Pulse Ox O2 O2 Flow FiO2 Time Delivery Rate 11/15/18 98.2 83 83 140/76 96 Room Air 08:11 (97) Intake and Output 11/14/18 11/14/18 11/15/18 1515:00 23:00 07:00 IntakeIntake Total 530 ml 540 ml OutputOutput Total 700 ml 1208 ml BalanceBalance -170 ml -668 ml Constitutional: alert, obese Psych: no complaints, nl mood/affect Respiratory: clear to auscultation, normal air movement Cardiovascular: regular rate and rhythm, nl pulses; No edema, No murmurs/extra sounds, No rub Gastrointestinal: soft, nl liver, spleen, non-tender, bowel sounds; No mass, No rebound or guarding Musculoskeletal: nl extremities to inspection Extremities: normal pulses; No cyanosis, No clubbing, No edema Neurological: [employer] II-XII intact, nl mental status, nl speech, nl strength Results Result Diagram: 11/15/18 0658 11/15/18 0658 Results 24hrs Laboratory Tests Test 11/15/18 06:58 White Blood Count 6.3 Red Blood Count 3.16 L Hemoglobin 9.7 L Hematocrit 29.9 L Mean Corpuscular Volume 94.6 Mean Corpuscular Hemoglobin 30.7 Mean Corpuscular Hemoglobin Concent 32.4 Red Cell Distribution Width 12.0 Platelet Count 211 Mean Platelet Volume 10.4 Immature Granulocytes % 1.000 H Neutrophils % 61.2 Lymphocytes % 26.3 Monocytes % 10.8 Eosinophils % 0.5 Basophils % 0.2 Nucleated Red Blood Cells % 0.0 Immature Granulocytes # 0.060 H Neutrophils # 3.9 Lymphocytes # 1.7 Monocytes # 0.7 Eosinophils # 0.0 Basophils # 0.0 Nucleated Red Blood Cells # 0.0 Sodium Level 147 H Potassium Level 3.5 Chloride Level 116 H Carbon Dioxide Level 24 Anion Gap 7 Blood Urea Nitrogen 18 Creatinine 2.05 H Est Glomerular Filtrat Rate mL/min 37 L Glucose Level 85 Calcium Level 8.4 Phosphorus Level 3.4 Magnesium Level 1.9 Medications Medication Current Medications Benztropine Mesylate (Cogentin) 1 mg BID PO Last administered on 11/15/18at 09:03; Admin Dose 1 MG; Start 11/08/18 at 09:00 Divalproex Sodium (Depakote) 500 mg BID PO Last administered on 11/15/18at 09:03; Admin Dose 500 MG; Start 11/08/18 at 09:00 Acetaminophen (Tylenol Tab) 650 mg Q6H PRN PO MILD PAIN(1-3)OR ELEVATED TEMP Last administered on 11/10/18 09:38; Admin Dose 650 MG; Start 11/07/18 at 23:30 Ondansetron HCl (Zofran Inj) 4 mg Q6H PRN IV NAUSEA AND/OR VOMITING Last administered on 11/10/18 13:04; Admin Dose 4 MG; Start 11/07/18 at 23:30 Olanzapine (Zyprexa) 15 mg BID PO Last administered on 11/15/18 09:03; Admin Dose 15 MG; Start 11/08/18 at 21:00 Chlorpromazine (Thorazine) 50 mg Q6 PRN IM AGITATION Last administered on 11/12/18 10:32; Admin Dose 50 MG; Start 11/08/18 at 16:00 Vancomycin HCl (Vanco Iv Per Pharmacy) VANCOMYCIN PER PHARMACY PER PROTOCOL XX ; Start 11/10/18 at 13:30 Meropenem/Sodium Chloride 50 ml @ 100 mls/hr Q12 IVPB Last administered on 11/15/18 09:05; Admin Dose 100 MLS/HR; Start 11/10/18 at 13:30 Levothyroxine Sodium (Synthroid Iv) 50 mcg DAILY@06 IV Last administered on 11/15/18 05:35; Admin Dose 50 MCG; Start 11/12/18 at 06:00 Pantoprazole (Protonix Iv) 40 mg DAILY@06 IV Last administered on 11/15/18 05:35; Admin Dose 40 MG; Start 11/12/18 at 06:00 Caspofungin 50 mg/ Sodium Chloride 250 ml @ 250 mls/hr Q24H IVPB Last administered on 11/14/18 17:11; Admin Dose 250 MLS/HR; Start 11/12/18 at 16:00 Enoxaparin Sodium (Lovenox) 40 mg DAILY SC Last administered on 11/13/18 10:08; Admin Dose 40 MG; Start 11/12/18 at 09:30 Docusate Sodium (Colace) 250 mg DAILY PO Last administered on 11/15/18 09:03; Admin Dose 250 MG; Start 11/14/18 at 09:00 Fludrocortisone Acetate (Florinef) 0.05 mg MONWEDFRI PO Last administered on 11/15/18 09:03; Admin Dose 0.05 MG; Start 11/15/18 at 09:00 Vancomycin HCl 250 ml @ 125 mls/hr Q36H IVPB Last administered on 11/14/18 14:50; Admin Dose 125 MLS/HR; Start 11/14/18 at 15:00 Hydrocortisone (Solu-Cortef) 20 mg QAM IV Last administered on 11/15/18 09:02; Admin Dose 20 MG; Start 11/14/18 at 14:30 Hydrocortisone (Solu-Cortef) 10 mg PC DINNER IV Last administered on 11/14/18 18:11; Admin Dose 10 MG; Start 11/14/18 at 19:00 RIP TOSCANO MD Nov 15, 2018 14:11
[2018-11-15] MEDS: CASPOFUNGIN 50 MG in SOD CHLORIDE 0.9% 250 ML IVPB SCH (15:19)
[2018-11-15 20:30] VITALS: BP 109/72; PULSE 76; RESP 19
[2018-11-16] MEDS: VANCOMYCIN 1 GM 250 ML IVPB SCH (03:44)
[2018-11-16] MEDS: PANTOPRAZOLE (EC) 40 MG TAB PO SCH (05:51)
[2018-11-16] MEDS: LEVOTHYROXINE 100 MCG VIAL IV SCH (05:51)
[2018-11-16 07:57] VITALS: BP 130/84; PULSE 70; RESP 18
[2018-11-16] MEDS: ENOXAPARIN 40 MG/0.4 ML SYG SC SCH (09:00)
[2018-11-16] MEDS: HYDROCORTISONE 100 MG INJ IV SCH ×2 (09:05→18:32)
[2018-11-16] MEDS: MEROPENEM 500MG/50 ML (PMX) 50 ML IVPB SCH (09:06)
--- NOTE | 2018-11-16 11:14 | CONS ---
Assessment/Plan Assessment/Plan Hospital Course (Demo Recall) All noted. No acute events overnight, no fevers Antimicrobials: Cancidas, vancomycin, meropenem Urine culture grew yeast, not Antonieta albicans. Blood cultures remain negative Physical examination: Chronically ill-appearing middle-aged man in no distress head atraumatic normocephalic neck is supple chest rise symmetrical breath sounds diminished bases heart S1-S2 abdomen distended, bowel sounds present extremities with bilateral lower extremities edema Assessment: 1. Sepsis, present on admission 2. Pneumonia and urinary tract infection 3. Acute renal failure, possibly retention 4. Schizophrenia 5. Mental retardation 6. Medical noncompliance Plan: Remains stable, will give last abx dose today Consultation Date/Type/Reason Admit Date/Time Nov 07, 2018 at 22:29 Initial Consult Date Type of Consult id Requesting Provider: VESNA SERNA MD Date/Time of Note DATE: 11/16/18 TIME: 11:13 Exam/Review of Systems Exam Vitals Vital Signs Date Temp Pulse Resp B/P (MAP) Pulse Ox O2 O2 Flow FiO2 Time Delivery Rate 11/16/18 98.3 70 18 130/84 97 Room Air 07:57 (99) Intake and Output 11/15/18 11/15/18 11/16/18 1515:00 23:00 07:00 IntakeIntake Total 50 ml 550 ml 300 ml OutputOutput Total 1400 ml 900 ml BalanceBalance -1350 ml -350 ml 300 ml Results Result Diagram: 11/15/18 0658 11/15/18 0658 Medications Medication Current Medications Benztropine Mesylate (Cogentin) 1 mg BID PO Last administered on 11/15/18at 22:36; Admin Dose 1 MG; Start 11/08/18 at 09:00 Divalproex Sodium (Depakote) 500 mg BID PO Last administered on 11/15/18 22:36; Admin Dose 500 MG; Start 11/08/18 at 09:00 Acetaminophen (Tylenol Tab) 650 mg Q6H PRN PO MILD PAIN(1-3)OR ELEVATED TEMP Last administered on 11/10/18 09:38; Admin Dose 650 MG; Start 11/07/18 at 23:30 Ondansetron HCl (Zofran Inj) 4 mg Q6H PRN IV NAUSEA AND/OR VOMITING Last administered on 3/1/19at 13:04; Admin Dose 4 MG; Start 11/07/18 at 23:30 Olanzapine (Zyprexa) 15 mg BID PO Last administered on 11/15/18 22:36; Admin Dose 15 MG; Start 11/08/18 at 21:00 Chlorpromazine (Thorazine) 50 mg Q6 PRN IM AGITATION Last administered on 11/12/18 10:32; Admin Dose 50 MG; Start 11/08/18 at 16:00 Vancomycin HCl (Vanco Iv Per Pharmacy) VANCOMYCIN PER PHARMACY PER PROTOCOL XX ; Start 11/10/18 at 13:30 Meropenem/Sodium Chloride 50 ml @ 100 mls/hr Q12 IVPB Last administered on 11/16/18 09:06; Admin Dose 100 MLS/HR; Start 11/10/18 at 13:30 Levothyroxine Sodium (Synthroid Iv) 50 mcg DAILY@06 IV Last administered on 11/16/18 05:51; Admin Dose 50 MCG; Start 11/12/18 at 06:00 Caspofungin 50 mg/ Sodium Chloride 250 ml @ 250 mls/hr Q24H IVPB Last administered on 11/15/18 15:19; Admin Dose 250 MLS/HR; Start 11/12/18 at 16:00 Enoxaparin Sodium (Lovenox) 40 mg DAILY SC Last administered on 11/13/18 10:08; Admin Dose 40 MG; Start 11/12/18 at 09:30 Docusate Sodium (Colace) 250 mg DAILY PO Last administered on 11/15/18 09:03; Admin Dose 250 MG; Start 11/14/18 at 09:00 Fludrocortisone Acetate (Florinef) 0.05 mg MONWEDFRI PO Last administered on 11/15/18 09:03; Admin Dose 0.05 MG; Start 11/15/18 at 09:00 Vancomycin HCl 250 ml @ 125 mls/hr Q36H IVPB Last administered on 11/16/18 03:44; Admin Dose 125 MLS/HR; Start 11/14/18 at 15:00 Hydrocortisone (Solu-Cortef) 20 mg QAM IV Last administered on 11/16/18 09:05; Admin Dose 20 MG; Start 11/14/18 at 14:30 Hydrocortisone (Solu-Cortef) 10 mg PC DINNER IV Last administered on 11/15/18at 18:05; Admin Dose 10 MG; Start 11/14/18 at 19:00 Pantoprazole (Protonix Tab) 40 mg DAILY@06 PO Last administered on 11/16/18at 05:51; Admin Dose 40 MG; Start 11/16/18 at 06:00 RENO KAYE NP Nov 16, 2018 11:14
[2018-11-16] MEDS: BENZTROPINE 1 MG TAB PO SCH ×2 (11:25→20:28)
[2018-11-16] MEDS: DOCUSATE SODIUM 250 MG CAP PO SCH (11:26)
[2018-11-16] MEDS: OLANZAPINE 5 MG TAB PO SCH ×2 (11:26→20:28)
[2018-11-16] MEDS: DIVALPROEX (EC) 500 MG TAB PO SCH ×2 (11:27→20:28)
--- NOTE | 2018-11-16 11:28 | PN ---
Date/Time of Note Date/Time of Note DATE: 11/16/18 TIME: 11:28 Assessment/Plan VTE Prophylaxis Risk score (from Ns)>0 risk: 2 SCD applied (from [facility] [place] No SCD contraindicated: low risk/ambulating Pharmacological prophylaxis: NA/contraindicated Pharm contraindication: low risk/ambulating Lines/Catheters [facility]from [facility] Urinary Cath still in place: No Assessment/Plan Hospital Course 38-year-old male with: 1. Hypotension, tachycardia, could be secondary to sepsis secondary to urinary tract infection,/pneumonia 2. Leukocytosis> improved. 3. Acute renal failure, likely secondary to combination of obstruction since the patient has not urinated/combination of prerenal/post the patient was given antibiotic, vancomycin and Zosyn.Cr stable Likely ATN /sepsis, creatinine is down trending 4. Hypokalemia. 5. Metabolic acidosis. 6. History of schizophrenia. 7. History of developmental delay. 8. Mental retardation. 9 HX ariadna 10 Hypernatremia likely hypovolemic /on fludricortisone 11 Hypokalemia with diarrhoea resolved Plan - cw vanco/meropnem/caspofungin? Antibiotic tapering per ID since patient has normal WBC and afebrile for more than 24 hours, spoke to ID -encourage to use the urinal - CW Fludricortisone/hydrocortisone per Endo - bld cx neg so far -cw levotyhroxine -cw with the olanzapine/Cogentin/ thorazine per psych GI/DVT PROPHYLAXSIS dc planning if cr improved and po vs iv abx > per ID Result Diagram: 11/15/18 0658 11/15/18 0658 Subjective 24 Hr Interval Summary Free Text/Dictation Pt much calmer Urinating no fevers Exam/Review of Systems Exam Vitals Vital Signs Date Temp Pulse Resp B/P (MAP) Pulse Ox O2 O2 Flow FiO2 Time Delivery Rate 11/16/18 98.3 70 18 130/84 97 Room Air 07:57 (99) Intake and Output 11/15/18 11/15/18 11/16/18 1515:00 23:00 07:00 IntakeIntake Total 50 ml 550 ml 300 ml OutputOutput Total 1400 ml 900 ml BalanceBalance -1350 ml -350 ml 300 ml Exam General awake alert oriented Supple Clear Abdomen distension improved Medications Medication Current Medications Benztropine Mesylate (Cogentin) 1 mg BID PO Last administered on 11/16/18 11:25; Admin Dose 1 MG; Start 11/08/18 at 09:00 Divalproex Sodium (Depakote) 500 mg BID PO Last administered on 11/16/18 11:27; Admin Dose 500 MG; Start 11/08/18 at 09:00 Acetaminophen (Tylenol Tab) 650 mg Q6H PRN PO MILD PAIN(1-3)OR ELEVATED TEMP Last administered on 11/10/18 09:38; Admin Dose 650 MG; Start 11/07/18 at 23:30 Ondansetron HCl (Zofran Inj) 4 mg Q6H PRN IV NAUSEA AND/OR VOMITING Last administered on 11/10/18 13:04; Admin Dose 4 MG; Start 11/07/18 at 23:30 Olanzapine (Zyprexa) 15 mg BID PO Last administered on 11/16/18 11:26; Admin Dose 15 MG; Start 11/08/18 at 21:00 Chlorpromazine (Thorazine) 50 mg Q6 PRN IM AGITATION Last administered on 11/12/18 10:32; Admin Dose 50 MG; Start 11/08/18 at 16:00 Vancomycin HCl (Vanco Iv Per Pharmacy) VANCOMYCIN PER PHARMACY PER PROTOCOL XX ; Start 11/10/18 at 13:30 Meropenem/Sodium Chloride 50 ml @ 100 mls/hr Q12 IVPB Last administered on 11/16/18 09:06; Admin Dose 100 MLS/HR; Start 11/10/18 at 13:30 Levothyroxine Sodium (Synthroid Iv) 50 mcg DAILY@06 IV Last administered on 11/16/18 05:51; Admin Dose 50 MCG; Start 11/12/18 at 06:00 Caspofungin 50 mg/ Sodium Chloride 250 ml @ 250 mls/hr Q24H IVPB Last administered on 11/15/18 15:19; Admin Dose 250 MLS/HR; Start 11/12/18 at 16:00 Enoxaparin Sodium (Lovenox) 40 mg DAILY SC Last administered on 11/13/18 10:08; Admin Dose 40 MG; Start 11/12/18 at 09:30 Docusate Sodium (Colace) 250 mg DAILY PO Last administered on 11/16/18 11:26; Admin Dose 250 MG; Start 11/14/18 at 09:00 Fludrocortisone Acetate (Florinef) 0.05 mg MONWEDFRI PO Last administered on 11/15/18 09:03; Admin Dose 0.05 MG; Start 11/15/18 at 09:00 Vancomycin HCl 250 ml @ 125 mls/hr Q36H IVPB Last administered on 11/16/18 03:44; Admin Dose 125 MLS/HR; Start 11/14/18 at 15:00 Hydrocortisone (Solu-Cortef) 20 mg QAM IV Last administered on 11/16/18 09:05; Admin Dose 20 MG; Start 11/14/18 at 14:30 Hydrocortisone (Solu-Cortef) 10 mg PC DINNER IV Last administered on 11/15/18 18:05; Admin Dose 10 MG; Start 11/14/18 at 19:00 Pantoprazole (Protonix Tab) 40 mg DAILY@06 PO Last administered on 11/16/18 05:51; Admin Dose 40 MG; Start 11/16/18 at 06:00 VESNA SERNA MD Nov 16, 2018 11:28
[2018-11-16 14:00] VITALS: BP 107/68; RESP 18
--- NOTE | 2018-11-16 14:45 | CONS ---
Assessment/Plan Assessment/Plan Problems: (1) Adrenal insufficiency Status: Chronic Comment: BP and HR mostly in goal range on current gluco- and mineralo- corticoid replacements. Labs not checked today. Hopefully will get them tomorrow to further eval this regimen (2) Testicular hypofunction Status: Chronic Comment: Cont. T applications if pt. accepting. 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 LT4 daily Consultation Date/Type/Reason Admit Date/Time Nov 07, 2018 at 22:29 Initial Consult Date 11/10/18 Type of Consult Endocrinology Reason for Consultation Adrenal insufficiency Requesting Provider: VESNA SERNA MD Date/Time of Note DATE: 11/16/18 TIME: 14:43 24 HR Interval Summary Constitutional: no complaints, improved Exam/Review of Systems Exam Vitals VS - Last 72 Hours, by Label Date Temp Pulse Resp B/P (MAP) Pulse Ox O2 O2 Flow FiO2 Time Delivery Rate 11/16/18 18 107/68 98 Room Air 14:00 (81) 11/16/18 98.3 70 18 130/84 97 Room Air 07:57 (99) 11/15/18 98.5 76 19 109/72 96 20:30 (84) 11/15/18 98.8 124 18 126/97 96 Room Air 14:04 (107) 11/15/18 98.2 83 83 140/76 96 Room Air 08:11 (97) 11/15/18 97.9 79 20 99/65 (76) 98 01:41 11/14/18 98.6 96 20 103/70 95 19:49 (81) 11/14/18 98.5 101 20 114/66 99 14:00 (82) 11/14/18 98.4 76 18 111/67 99 08:00 (82) 11/14/18 98.4 83 18 111/71 96 02:00 (84) 11/13/18 98.0 90 18 139/68 97 20:04 (91) Vital Signs Date Temp Pulse Resp B/P (MAP) Pulse Ox O2 O2 Flow FiO2 Time Delivery Rate 11/16/18 18 107/68 98 Room Air 14:00 (81) 11/16/18 98.3 70 07:57 Intake and Output 11/15/18 11/15/18 11/16/18 1515:00 23:00 07:00 IntakeIntake Total 50 ml 550 ml 300 ml OutputOutput Total 1400 ml 900 ml BalanceBalance -1350 ml -350 ml 300 ml Constitutional: alert, oriented, obese Respiratory: clear to auscultation, normal air movement Cardiovascular: regular rate and rhythm, nl pulses; No edema, No murmurs/extra sounds, No rub Gastrointestinal: soft, nl liver, spleen, non-tender, bowel sounds; No mass, No rebound or guarding Musculoskeletal: nl extremities to inspection Extremities: normal pulses; No cyanosis, No clubbing, No edema Neurological: POLISHER HAND II-XII intact, nl mental status, nl speech, nl strength Results Result Diagram: 11/15/1865711/15/18657 Medications Medication Current Medications Benztropine Mesylate (Cogentin) 1 mg BID PO Last administered on 11/16/18 11:25; Admin Dose 1 MG; Start 11/08/18 at 09:00 Divalproex Sodium (Depakote) 500 mg BID PO Last administered on 11/16/18 11:27; Admin Dose 500 MG; Start 11/08/18 at 09:00 Acetaminophen (Tylenol Tab) 650 mg Q6H PRN PO MILD PAIN(1-3)OR ELEVATED TEMP Last administered on 11/10/18 09:38; Admin Dose 650 MG; Start 11/07/18 at 23:30 Ondansetron HCl (Zofran Inj) 4 mg Q6H PRN IV NAUSEA AND/OR VOMITING Last administered on 11/10/18 13:04; Admin Dose 4 MG; Start 11/07/18 at 23:30 Olanzapine (Zyprexa) 15 mg BID PO Last administered on 11/16/18 11:26; Admin Dose 15 MG; Start 11/08/18 at 21:00 Chlorpromazine (Thorazine) 50 mg Q6 PRN IM AGITATION Last administered on 11/12/18 10:32; Admin Dose 50 MG; Start 11/08/18 at 16:00 Levothyroxine Sodium (Synthroid Iv) 50 mcg DAILY@06 IV Last administered on 11/16/18 05:51; Admin Dose 50 MCG; Start 11/12/18 at 06:00 Enoxaparin Sodium (Lovenox) 40 mg DAILY SC Last administered on 11/13/18 10:08; Admin Dose 40 MG; Start 11/12/18 at 09:30 Docusate Sodium (Colace) 250 mg DAILY PO Last administered on 11/16/18 11:26; Admin Dose 250 MG; Start 11/14/18 at 09:00 Fludrocortisone Acetate (Florinef) 0.05 mg MONWEDFRI PO Last administered on 11/15/18 09:03; Admin Dose 0.05 MG; Start 11/15/18 at 09:00 Hydrocortisone (Solu-Cortef) 20 mg QAM IV Last administered on 11/16/18 09:05; Admin Dose 20 MG; Start 11/14/18 at 14:30 Hydrocortisone (Solu-Cortef) 10 mg PC DINNER IV Last administered on 11/15/18 18:05; Admin Dose 10 MG; Start 11/14/18 at 19:00 Pantoprazole (Protonix Tab) 40 mg DAILY@06 PO Last administered on 11/16/18 05:51; Admin Dose 40 MG; Start 11/16/18 at 06:00 RIP TOSCANO MD Nov 16, 2018 14:45
[2018-11-16 19:55] VITALS: BP 136/74; PULSE 79; RESP 20
[2018-11-17 02:09] VITALS: BP 113/80; PULSE 66; RESP 20
[2018-11-17] MEDS: LEVOTHYROXINE 100 MCG VIAL IV SCH (05:40)
[2018-11-17] MEDS: PANTOPRAZOLE (EC) 40 MG TAB PO SCH (05:40)
[2018-11-17] MEDS: FLUDROCORTISONE 0.1 MG TAB PO SCH (09:00)
[2018-11-17] MEDS: OLANZAPINE 5 MG TAB PO SCH ×2 (09:00→20:12)
[2018-11-17] MEDS: DIVALPROEX (EC) 500 MG TAB PO SCH ×2 (09:00→20:12)
[2018-11-17] MEDS: DOCUSATE SODIUM 250 MG CAP PO SCH (09:00)
[2018-11-17] MEDS: BENZTROPINE 1 MG TAB PO SCH ×2 (09:00→20:12)
[2018-11-17] MEDS: ENOXAPARIN 40 MG/0.4 ML SYG SC SCH (09:00)
--- NOTE | 2018-11-17 11:49 | CONS ---
Assessment/Plan Assessment/Plan Hospital Course (Demo Recall) All noted. No acute events overnight, no fevers Antimicrobials: none Urine culture grew yeast, not Antonieta albicans. Blood cultures remain negative Physical examination: Chronically ill-appearing middle-aged man in no distress head atraumatic normocephalic neck is supple chest rise symmetrical breath sounds diminished bases heart S1-S2 abdomen distended, bowel sounds present extremities with bilateral lower extremities edema Assessment: 1. S/p sepsis, present on admission 2. S/p pneumonia and urinary tract infection 3. Acute renal failure, possibly retention 4. Schizophrenia 5. Mental retardation 6. Medical noncompliance Plan: Remains stable, completed abx, pending dc Consultation Date/Type/Reason Admit Date/Time Nov 07, 2018 at 22:29 Initial Consult Date Type of Consult id Requesting Provider: VESNA SERNA MD Date/Time of Note DATE: 11/17/18 TIME: 11:48 Exam/Review of Systems Exam Vitals Vital Signs Date Temp Pulse Resp B/P (MAP) Pulse Ox O2 O2 Flow FiO2 Time Delivery Rate 11/17/18 97.5 66 20 113/80 98 02:09 (91) 11/16/18 Room Air 14:00 Intake and Output 11/16/18 11/16/18 11/17/18 1515:00 23:00 07:00 IntakeIntake Total 380 ml 290 ml OutputOutput Total 500 ml 1600 ml BalanceBalance -120 ml -1310 ml Results Result Diagram: 11/16/18 1421 11/16/18 1421 Results 24hrs Laboratory Tests Test 11/16/18 14:21 White Blood Count 9.2 # Red Blood Count 3.24 L Hemoglobin 10.2 L Hematocrit 31.6 L Mean Corpuscular Volume 97.5 Mean Corpuscular Hemoglobin 31.5 Mean Corpuscular Hemoglobin Concent 32.3 Red Cell Distribution Width 12.1 Platelet Count 238 Mean Platelet Volume 10.5 H Immature Granulocytes % 1.100 H Neutrophils % 76.5 Lymphocytes % 15.2 Monocytes % 6.8 Eosinophils % 0.1 Basophils % 0.3 Nucleated Red Blood Cells % 0.0 Immature Granulocytes # 0.100 H Neutrophils # 7.0 Lymphocytes # 1.4 Monocytes # 0.6 Eosinophils # 0.0 Basophils # 0.0 Nucleated Red Blood Cells # 0.0 Sodium Level 145 H Potassium Level 4.3 Chloride Level 114 H Carbon Dioxide Level 26 Anion Gap 5 Blood Urea Nitrogen 19 Creatinine 2.03 H Est Glomerular Filtrat Rate mL/min 37 L Glucose Level 104 Calcium Level 8.9 Phosphorus Level 3.6 Magnesium Level 1.9 Medications Medication Current Medications Benztropine Mesylate (Cogentin) 1 mg BID PO Last administered on 11/16/18 20:28; Admin Dose 1 MG; Start 11/08/18 at 09:00 Divalproex Sodium (Depakote) 500 mg BID PO Last administered on 11/16/18 20:28; Admin Dose 500 MG; Start 11/08/18 at 09:00 Acetaminophen (Tylenol Tab) 650 mg Q6H PRN PO MILD PAIN(1-3)OR ELEVATED TEMP Last administered on 11/10/18 09:38; Admin Dose 650 MG; Start 11/07/18 at 23:30 Ondansetron HCl (Zofran Inj) 4 mg Q6H PRN IV NAUSEA AND/OR VOMITING Last administered on 11/10/18 13:04; Admin Dose 4 MG; Start 11/07/18 at 23:30 Olanzapine (Zyprexa) 15 mg BID PO Last administered on 11/16/18 20:28; Admin Dose 15 MG; Start 11/08/18 at 21:00 Chlorpromazine (Thorazine) 50 mg Q6 PRN IM AGITATION Last administered on 11/12/18 10:32; Admin Dose 50 MG; Start 11/08/18 at 16:00 Levothyroxine Sodium (Synthroid Iv) 50 mcg DAILY@06 IV Last administered on 11/17/18 05:40; Admin Dose 50 MCG; Start 11/12/18 at 06:00 Enoxaparin Sodium (Lovenox) 40 mg DAILY SC Last administered on 11/13/18 10:08; Admin Dose 40 MG; Start 11/12/18 at 09:30 Docusate Sodium (Colace) 250 mg DAILY PO Last administered on 11/16/18 11:26; Admin Dose 250 MG; Start 11/14/18 at 09:00 Fludrocortisone Acetate (Florinef) 0.05 mg MONWEDFRI PO Last administered on 11/15/18 09:03; Admin Dose 0.05 MG; Start 11/15/18 at 09:00 Hydrocortisone (Solu-Cortef) 20 mg QAM IV Last administered on 11/16/18at 09:05; Admin Dose 20 MG; Start 11/14/18 at 14:30 Hydrocortisone (Solu-Cortef) 10 mg PC DINNER IV Last administered on 11/16/18at 18:32; Admin Dose 10 MG; Start 11/14/18 at 19:00 Pantoprazole (Protonix Tab) 40 mg DAILY@06 PO Last administered on 11/17/18at 05:40; Admin Dose 40 MG; Start 11/16/18 at 06:00 RENO KAYE NP Nov 17, 2018 11:49
[2018-11-17] MEDS: SOD CHLORIDE 0.9% 1,000 ML IV SCH (14:25)
[2018-11-17] MEDS: HYDROCORTISONE 100 MG INJ IV SCH ×2 (15:26→19:35)
--- NOTE | 2018-11-17 15:43 | PN ---
Date/Time of Note Date/Time of Note DATE: 11/17/18 TIME: 15:41 Assessment/Plan VTE Prophylaxis Risk score (from Ns)>0 risk: 2 SCD applied (from [facility] [place]): No SCD contraindicated: other Pharmacological prophylaxis: LMWH Lines/Catheters IV [facility] Type (from [facility] Mid Line Central line still needed: Yes Urinary Cath still in place: No Assessment/Plan Hospital Course 1. Hypotension, tachycardia, could be secondary to sepsis secondary to urinary tract infection,/pneumonia. resolved 2. Leukocytosis> improved. 3. Acute renal failure, likely secondary to combination of obstruction since the patient has not urinated/combination of prerenal/post the patient was given antibiotic, vancomycin and Zosyn. Creatinine goes down 4. Hypokalemia, now hyperkalemia. 5. Metabolic acidosis. 6. History of schizophrenia. 7. History of developmental delay. 8. Mental retardation. 9. HX Giovanni disease 10 Hypernatremia likely hypovolemic /on fludricortisone 11 Hypokalemia with diarrhoea, resolved 12.Obesity 13. Non compliance 14. Anemia Assessment/Plan - off a/b -need to know dc dose of Prednisolone -encourage to use the urinal - CW Fludrocortisone/hydrocortisone per Endo - bld cx neg so far -cw levothyroxine. -cw with the olanzapine/Cogentin/ thorazine per psych GI/DVT PROPHYLAXIS. Result Diagram: 11/16/18 1421 11/16/18 1421 Exam/Review of Systems Exam Vitals Vital Signs Date Temp Pulse Resp B/P (MAP) Pulse Ox O2 O2 Flow FiO2 Time Delivery Rate 11/17/18 97.5 66 20 113/80 98 02:09 (91) 11/16/18 Room Air 14:00 Intake and Output 11/16/18 11/16/18 11/17/18 1414:59 22:59 06:59 IntakeIntake Total 380 ml 290 ml OutputOutput Total 500 ml 1600 ml BalanceBalance -120 ml -1310 ml Medications Medication Current Medications Benztropine Mesylate (Cogentin) 1 mg BID PO Last administered on 11/16/18at 20:28; Admin Dose 1 MG; Start 11/08/18 at 09:00 Divalproex Sodium (Depakote) 500 mg BID PO Last administered on 11/16/18at 20:28; Admin Dose 500 MG; Start 11/08/18 at 09:00 Acetaminophen (Tylenol Tab) 650 mg Q6H PRN PO MILD PAIN(1-3)OR ELEVATED TEMP Last administered on 11/10/18 09:38; Admin Dose 650 MG; Start 11/07/18 at 23:30 Ondansetron HCl (Zofran Inj) 4 mg Q6H PRN IV NAUSEA AND/OR VOMITING Last administered on 11/10/18 13:04; Admin Dose 4 MG; Start 11/07/18 at 23:30 Olanzapine (Zyprexa) 15 mg BID PO Last administered on 11/16/18 20:28; Admin Dose 15 MG; Start 11/08/18 at 21:00 Chlorpromazine (Thorazine) 50 mg Q6 PRN IM AGITATION Last administered on 11/12/18 10:32; Admin Dose 50 MG; Start 11/08/18 at 16:00 Levothyroxine Sodium (Synthroid Iv) 50 mcg DAILY@06 IV Last administered on 11/17/18 05:40; Admin Dose 50 MCG; Start 11/12/18 at 06:00 Enoxaparin Sodium (Lovenox) 40 mg DAILY SC Last administered on 11/13/18 10:08; Admin Dose 40 MG; Start 11/12/18 at 09:30 Docusate Sodium (Colace) 250 mg DAILY PO Last administered on 11/16/18 11:26; Admin Dose 250 MG; Start 11/14/18 at 09:00 Fludrocortisone Acetate (Florinef) 0.05 mg MONWEDFRI PO Last administered on 11/15/18 09:03; Admin Dose 0.05 MG; Start 11/15/18 at 09:00 Hydrocortisone (Solu-Cortef) 20 mg QAM IV Last administered on 11/17/18 15:26; Admin Dose 20 MG; Start 11/14/18 at 14:30 Hydrocortisone (Solu-Cortef) 10 mg PC DINNER IV Last administered on 11/16/18 18:32; Admin Dose 10 MG; Start 11/14/18 at 19:00 Pantoprazole (Protonix Tab) 40 mg DAILY@06 PO Last administered on 11/17/18 05:40; Admin Dose 40 MG; Start 11/16/18 at 06:00 Sodium Chloride 1,000 ml @ 50 mls/hr Q20H IV Last administered on 11/17/18at 14:25; Admin Dose 50 MLS/HR; Start 11/17/18 at 13:30 JULISSA BELCHER 8, 2019 15:43
--- NOTE | 2018-11-17 18:01 | CONS ---
Assessment/Plan Assessment/Plan Problems: (1) Adrenal insufficiency Status: Chronic Comment: Pt. continues to be stable on his hydrocortisone and fludricortisone. Sodium 145 and potassium 4.3 yesterday. On d/c pt. can resume his previous home dosages of prednisone 5 mg and fludricortisone 0.1 mg daily and should f/u w/ his statistician applied. (2) Testicular hypofunction Status: Chronic Comment: Cont. 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 LT4 daily. Can give po if patient is cooperative but if not, should give IV so as not to interrupt therapy. Consultation Date/Type/Reason Admit Date/Time Nov 07, 2018 at 22:29 Initial Consult Date 11/10/18 Type of Consult Endocrinology Reason for Consultation Adrenal insufficiency Requesting Provider: VESNA SERNA MD Date/Time of Note DATE: 11/17/18 TIME: 17:54 24 HR Interval Summary Constitutional: no complaints Detailed Summary Respiratory: no complaints Cardiovascular: no complaints Gastrointestinal: no complaints Genitourinary: no complaints Musculoskeletal: no complaints Neurologic: no complaints Exam/Review of Systems Exam Vitals VS - Last 72 Hours, by Label Date Temp Pulse Resp B/P (MAP) Pulse Ox O2 O2 Flow FiO2 Time Delivery Rate 11/17/18 97.5 66 20 113/80 98 02:09 (91) 11/16/18 99.0 79 20 136/74 97 19:55 (94) 11/16/18 18 107/68 98 Room Air 14:00 (81) 11/16/18 98.3 70 18 130/84 97 Room Air 07:57 (99) 11/15/18 98.5 76 19 109/72 96 20:30 (84) 11/15/18 98.8 124 18 126/97 96 Room Air 14:04 (107) 11/15/18 98.2 83 83 140/76 96 Room Air 08:11 (97) 11/15/18 97.9 79 20 99/65 (76) 98 01:41 11/14/18 98.6 96 20 103/70 95 19:49 (81) Vital Signs Date Temp Pulse Resp B/P (MAP) Pulse Ox O2 O2 Flow FiO2 Time Delivery Rate 11/17/18 97.5 66 20 113/80 98 02:09 (91) 11/16/18 Room Air 14:00 Intake and Output 11/16/18 11/16/18 11/17/18 1414:59 22:59 06:59 IntakeIntake Total 380 ml 290 ml OutputOutput Total 500 ml 1600 ml BalanceBalance -120 ml -1310 ml Constitutional: alert, oriented, obese Psych: no complaints, nl mood/affect Respiratory: clear to auscultation, normal air movement Cardiovascular: regular rate and rhythm, nl pulses; No edema, No murmurs/extra sounds, No rub Gastrointestinal: soft, nl liver, spleen, non-tender, bowel sounds; No mass, No rebound or guarding Musculoskeletal: nl extremities to inspection Extremities: normal pulses; No cyanosis, No clubbing, No edema Neurological: CASE TECHNICIAN II-XII intact, nl mental status, nl speech, nl strength Results Result Diagram: 11/16/18 1421 11/16/18 1421 Medications Medication Current Medications Benztropine Mesylate (Cogentin) 1 mg BID PO Last administered on 11/16/18 20:28; Admin Dose 1 MG; Start 11/08/18 at 09:00 Divalproex Sodium (Depakote) 500 mg BID PO Last administered on 11/16/18 20:28; Admin Dose 500 MG; Start 11/08/18 at 09:00 Acetaminophen (Tylenol Tab) 650 mg Q6H PRN PO MILD PAIN(1-3)OR ELEVATED TEMP Last administered on 11/10/18 09:38; Admin Dose 650 MG; Start 11/07/18 at 23:30 Ondansetron HCl (Zofran Inj) 4 mg Q6H PRN IV NAUSEA AND/OR VOMITING Last administered on 11/10/18 13:04; Admin Dose 4 MG; Start 11/07/18 at 23:30 Olanzapine (Zyprexa) 15 mg BID PO Last administered on 11/16/18 20:28; Admin Dose 15 MG; Start 11/08/18 at 21:00 Chlorpromazine (Thorazine) 50 mg Q6 PRN IM AGITATION Last administered on 11/12/18 10:32; Admin Dose 50 MG; Start 11/08/18 at 16:00 Levothyroxine Sodium (Synthroid Iv) 50 mcg DAILY@06 IV Last administered on 11/17/18 05:40; Admin Dose 50 MCG; Start 11/12/18 at 06:00 Enoxaparin Sodium (Lovenox) 40 mg DAILY SC Last administered on 11/13/18 10:08; Admin Dose 40 MG; Start 11/12/18 at 09:30 Docusate Sodium (Colace) 250 mg DAILY PO Last administered on 11/16/18 11:26; Admin Dose 250 MG; Start 11/14/18 at 09:00 Fludrocortisone Acetate (Florinef) 0.05 mg MONWEDFRI PO Last administered on 11/15/18 09:03; Admin Dose 0.05 MG; Start 11/15/18 at 09:00 Hydrocortisone (Solu-Cortef) 20 mg QAM IV Last administered on 11/17/18 15:26; Admin Dose 20 MG; Start 11/14/18 at 14:30 Hydrocortisone (Solu-Cortef) 10 mg PC DINNER IV Last administered on 11/16/18 18:32; Admin Dose 10 MG; Start 11/14/18 at 19:00 Pantoprazole (Protonix Tab) 40 mg DAILY@06 PO Last administered on 11/17/18 05:40; Admin Dose 40 MG; Start 11/16/18 at 06:00 Sodium Chloride 1,000 ml @ 50 mls/hr Q20H IV Last administered on 11/17/18 14:25; Admin Dose 50 MLS/HR; Start 11/17/18 at 13:30 RIP TOSCANO MD Nov 17, 2018 18:01
[2018-11-17 19:56] VITALS: BP 114/85; PULSE 87; RESP 17
[2018-11-17] MEDS: ACETAMINOPHEN 325 MG TAB PO PRN (20:13)
[2018-11-18 02:35] VITALS: BP 122/85; PULSE 68; RESP 18
[2018-11-18] MEDS: PANTOPRAZOLE (EC) 40 MG TAB PO SCH (06:00)
[2018-11-18] MEDS: LEVOTHYROXINE 100 MCG VIAL IV SCH (06:00)
[2018-11-18] MEDS: ENOXAPARIN 40 MG/0.4 ML SYG SC SCH (09:00)
[2018-11-18] MEDS: DIVALPROEX (EC) 500 MG TAB PO SCH ×2 (09:18→20:48)
[2018-11-18] MEDS: OLANZAPINE 5 MG TAB PO SCH ×2 (09:18→20:48)
[2018-11-18] MEDS: HYDROCORTISONE 100 MG INJ IV SCH ×2 (09:18→20:48)
[2018-11-18] MEDS: DOCUSATE SODIUM 250 MG CAP PO SCH (09:18)
[2018-11-18] MEDS: BENZTROPINE 1 MG TAB PO SCH ×2 (09:18→20:48)
[2018-11-18] MEDS: SOD CHLORIDE 0.9% 1,000 ML IV SCH ×2 (09:23→09:24)
--- NOTE | 2018-11-18 12:42 | CONS ---
Assessment/Plan Assessment/Plan Hospital Course (Demo Recall) No acute events overnight patient was spiking low-grade fevers yesterday with a T-max of 100.4 currently afebrile. No labs this morning he is off antibiotics day #2 Urine culture grew yeast, not Antonieta albicans. Blood cultures remain negative Physical examination: Chronically ill-appearing middle-aged man in no distress head atraumatic normocephalic neck is supple chest rise symmetrical breath sounds diminished bases heart S1-S2 abdomen distended, bowel sounds present extremities with bilateral lower extremities edema Assessment: 1. S/p sepsis, present on admission 2. S/p pneumonia and urinary tract infection 3. Acute renal failure, possibly retention 4. Schizophrenia 5. Mental retardation 6. Medical noncompliance Plan: Clinically unchanged with ongoing low-grade fever likely secondary to urinary retention, per report patient has been refusing straight caths. Also staff was not able to insert Ramirez catheter and patient refused intervention by urology at the time. But will continue observing him, if he continues to spike fever we may restart antibiotics. Repeat chest x-ray Consultation Date/Type/Reason Admit Date/Time Nov 07, 2018 at 22:29 Initial Consult Date Type of Consult id Requesting Provider: VESNA SERNA MD Date/Time of Note DATE: 11/18/18 TIME: 12:40 Exam/Review of Systems Exam Vitals Vital Signs Date Temp Pulse Resp B/P (MAP) Pulse Ox O2 O2 Flow FiO2 Time Delivery Rate 11/18/18 97.8 68 18 122/85 98 02:35 (97) 11/16/18 Room Air 14:00 Intake and Output 11/17/18 11/17/18 11/18/18 1515:00 23:00 07:00 IntakeIntake Total 490 ml 475 ml BalanceBalance 490 ml 475 ml Results Result Diagram: 11/16/18 1421 11/16/18 1421 Medications Medication Current Medications Benztropine Mesylate (Cogentin) 1 mg BID PO Last administered on 11/18/18at 09:18; Admin Dose 1 MG; Start 11/08/18 at 09:00 Divalproex Sodium (Depakote) 500 mg BID PO Last administered on 11/18/18at 09:18; Admin Dose 500 MG; Start 11/08/18 at 09:00 Acetaminophen (Tylenol Tab) 650 mg Q6H PRN PO MILD PAIN(1-3)OR ELEVATED TEMP Last administered on 11/17/18 20:13; Admin Dose 650 MG; Start 11/07/18 at 23:30 Ondansetron HCl (Zofran Inj) 4 mg Q6H PRN IV NAUSEA AND/OR VOMITING Last administered on 11/10/18 13:04; Admin Dose 4 MG; Start 11/07/18 at 23:30 Olanzapine (Zyprexa) 15 mg BID PO Last administered on 11/18/18 09:18; Admin Dose 15 MG; Start 11/08/18 at 21:00 Chlorpromazine (Thorazine) 50 mg Q6 PRN IM AGITATION Last administered on 11/12/18 10:32; Admin Dose 50 MG; Start 11/08/18 at 16:00 Levothyroxine Sodium (Synthroid Iv) 50 mcg DAILY@06 IV Last administered on 11/17/18 05:40; Admin Dose 50 MCG; Start 11/12/18 at 06:00 Enoxaparin Sodium (Lovenox) 40 mg DAILY SC Last administered on 11/13/18 10:08; Admin Dose 40 MG; Start 11/12/18 at 09:30 Docusate Sodium (Colace) 250 mg DAILY PO Last administered on 11/18/18 09:18; Admin Dose 250 MG; Start 11/14/18 at 09:00 Fludrocortisone Acetate (Florinef) 0.05 mg MONWEDFRI PO Last administered on 11/15/18 09:03; Admin Dose 0.05 MG; Start 11/15/18 at 09:00 Hydrocortisone (Solu-Cortef) 20 mg QAM IV Last administered on 11/18/18 09:18; Admin Dose 20 MG; Start 11/14/18 at 14:30 Hydrocortisone (Solu-Cortef) 10 mg PC DINNER IV Last administered on 11/17/18 19:35; Admin Dose 10 MG; Start 11/14/18 at 19:00 Pantoprazole (Protonix Tab) 40 mg DAILY@06 PO Last administered on 11/17/18 05:40; Admin Dose 40 MG; Start 11/16/18 at 06:00 Sodium Chloride 1,000 ml @ 50 mls/hr Q20H IV Last administered on 3/9/19at 09:23; Admin Dose 50 MLS/HR; Start 11/17/18 at 13:30 RENO KAYE NP Nov 18, 2018 12:42
[2018-11-18 14:00] VITALS: BP 140/93; PULSE 111; RESP 18
--- NOTE | 2018-11-18 14:18 | PN ---
Date/Time of Note Date/Time of Note DATE: 11/18/18 TIME: 14:17 Assessment/Plan VTE Prophylaxis Risk score (from Ns)>0 risk: 2 SCD applied (from [facility] [place]): No SCD contraindicated: other Pharmacological prophylaxis: other Pharm contraindication: low risk/ambulating Lines/Catheters IV Catheter Type (from [facility]): [place] Lock Urinary Cath still in place: No Assessment/Plan Hospital Course 1. Hypotension, tachycardia, could be secondary to sepsis secondary to urinary tract infection,/pneumonia. resolved 2. Leukocytosis> improved. 3. Acute renal failure, likely secondary to combination of obstruction since the patient has not urinated/combination of prerenal/post the patient was given antibiotic, vancomycin and Zosyn. Creatinine goes down insignificantly 4. Hypokalemia, now hyperkalemia. 5. Metabolic acidosis. 6. History of schizophrenia. 7. History of developmental delay. 8. Mental retardation. 9. HX Huron disease 10 Hypernatremia likely hypovolemic /on fludricortisone 11 Hypokalemia with diarrhoea, resolved 12.Obesity 13. Non compliance 14. Anemia Assessment/Plan - off a/b -encourage to use the urinal q 3-4 hours - CW Fludrocortisone/hydrocortisone per Endo - bld cx neg so far -cw levothyroxine. -cw with the olanzapine/Cogentin/ thorazine per psych GI/DVT PROPHYLAXIS. Result Diagram: 11/16/18 1421 11/16/18 1421 Subjective 24 Hr Interval Summary Constitutional: no complaints Exam/Review of Systems Exam Vitals Vital Signs Date Temp Pulse Resp B/P (MAP) Pulse Ox O2 O2 Flow FiO2 Time Delivery Rate 11/18/18 97.8 68 18 122/85 98 02:35 (97) 11/16/18 Room Air 14:00 Intake and Output 11/17/18 11/17/18 11/18/18 1414:59 22:59 06:59 IntakeIntake Total 490 ml 475 ml BalanceBalance 490 ml 475 ml Constitutional: alert, oriented Eyes: nl conjunctiva ENMT: nl external ears & nose Cardiovascular: regular rate and rhythm Gastrointestinal: soft Medications Medication Current Medications Benztropine Mesylate (Cogentin) 1 mg BID PO Last administered on 11/18/18at 09:18; Admin Dose 1 MG; Start 11/08/18 at 09:00 Divalproex Sodium (Depakote) 500 mg BID PO Last administered on 11/18/18 09:18; Admin Dose 500 MG; Start 11/08/18 at 09:00 Acetaminophen (Tylenol Tab) 650 mg Q6H PRN PO MILD PAIN(1-3)OR ELEVATED TEMP Last administered on 11/17/18 20:13; Admin Dose 650 MG; Start 11/07/18 at 23:30 Ondansetron HCl (Zofran Inj) 4 mg Q6H PRN IV NAUSEA AND/OR VOMITING Last administered on 11/10/18 13:04; Admin Dose 4 MG; Start 11/07/18 at 23:30 Olanzapine (Zyprexa) 15 mg BID PO Last administered on 11/18/18 09:18; Admin Dose 15 MG; Start 11/08/18 at 21:00 Chlorpromazine (Thorazine) 50 mg Q6 PRN IM AGITATION Last administered on 11/12/18 10:32; Admin Dose 50 MG; Start 11/08/18 at 16:00 Levothyroxine Sodium (Synthroid Iv) 50 mcg DAILY@06 IV Last administered on 11/17/18 05:40; Admin Dose 50 MCG; Start 11/12/18 at 06:00 Enoxaparin Sodium (Lovenox) 40 mg DAILY SC Last administered on 11/13/18 10:08; Admin Dose 40 MG; Start 11/12/18 at 09:30 Docusate Sodium (Colace) 250 mg DAILY PO Last administered on 11/18/18 09:18; Admin Dose 250 MG; Start 11/14/18 at 09:00 Fludrocortisone Acetate (Florinef) 0.05 mg MONWEDFRI PO Last administered on 11/15/18 09:03; Admin Dose 0.05 MG; Start 11/15/18 at 09:00 Hydrocortisone (Solu-Cortef) 20 mg QAM IV Last administered on 11/18/18 09:18; Admin Dose 20 MG; Start 11/14/18 at 14:30 Hydrocortisone (Solu-Cortef) 10 mg PC DINNER IV Last administered on 11/17/18 19:35; Admin Dose 10 MG; Start 11/14/18 at 19:00 Pantoprazole (Protonix Tab) 40 mg DAILY@06 PO Last administered on 11/17/18at 05:40; Admin Dose 40 MG; Start 11/16/18 at 06:00 Sodium Chloride 1,000 ml @ 50 mls/hr Q20H IV Last administered on 11/18/18at 09:23; Admin Dose 50 MLS/HR; Start 11/17/18 at 13:30 JULISSA BELCHER Nov 18, 2018 14:18
--- NOTE | 2018-11-18 15:56 | CONS ---
Assessment/Plan Assessment/Plan Problems: (1) Adrenal insufficiency Status: Chronic Comment: Stable at this time on treatment. As per Dr. Webber's dictation for discharge medications. (2) Testicular hypofunction Status: Chronic Comment: Stable on treatment. 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 Comment: Table on replacement dose therapy Consultation Date/Type/Reason Admit Date/Time Nov 07, 2018 at 22:29 Initial Consult Date 11/12/18 Type of Consult Endocrinology Reason for Consultation Adrenal insufficiency mineralocorticoid and glucocorticoid; testicular hypofunction Requesting Provider: VESNA SERNA MD Date/Time of Note DATE: 11/18/18 TIME: 15:55 24 HR Interval Summary Free Text/Dictation Patient reports doing relatively well Exam/Review of Systems Exam Vitals Vital Signs Date Temp Pulse Resp B/P (MAP) Pulse Ox O2 O2 Flow FiO2 Time Delivery Rate 11/18/18 97.8 68 18 122/85 98 02:35 (97) 11/16/18 Room Air 14:00 Intake and Output 11/17/18 11/17/18 11/18/18 1515:00 23:00 07:00 IntakeIntake Total 490 ml 475 ml BalanceBalance 490 ml 475 ml Exam No change in exam Results Result Diagram: 11/16/18 1421 11/18/18 1411 Results 24hrs Laboratory Tests Test 11/18/18 14:11 Sodium Level 145 H Potassium Level 3.6 Chloride Level 110 Carbon Dioxide Level 25 Anion Gap 10 # Blood Urea Nitrogen 17 Creatinine 1.94 H Est Glomerular Filtrat Rate mL/min 39 L Glucose Level 98 Calcium Level 9.1 Medications Medication Current Medications Benztropine Mesylate (Cogentin) 1 mg BID PO Last administered on 11/18/18at 09:18; Admin Dose 1 MG; Start 11/08/18 at 09:00 Divalproex Sodium (Depakote) 500 mg BID PO Last administered on 11/18/18at 09:18; Admin Dose 500 MG; Start 11/08/18 at 09:00 Acetaminophen (Tylenol Tab) 650 mg Q6H PRN PO MILD PAIN(1-3)OR ELEVATED TEMP Last administered on 11/17/18at 20:13; Admin Dose 650 MG; Start 11/07/18 at 23:30 Ondansetron HCl (Zofran Inj) 4 mg Q6H PRN IV NAUSEA AND/OR VOMITING Last administered on 11/10/18 13:04; Admin Dose 4 MG; Start 11/07/18 at 23:30 Olanzapine (Zyprexa) 15 mg BID PO Last administered on 11/18/18 09:18; Admin Dose 15 MG; Start 11/08/18 at 21:00 Chlorpromazine (Thorazine) 50 mg Q6 PRN IM AGITATION Last administered on 11/12/18 10:32; Admin Dose 50 MG; Start 11/08/18 at 16:00 Levothyroxine Sodium (Synthroid Iv) 50 mcg DAILY@06 IV Last administered on 11/17/18 05:40; Admin Dose 50 MCG; Start 11/12/18 at 06:00 Enoxaparin Sodium (Lovenox) 40 mg DAILY SC Last administered on 11/13/18 10:08; Admin Dose 40 MG; Start 11/12/18 at 09:30 Docusate Sodium (Colace) 250 mg DAILY PO Last administered on 11/18/18 09:18; Admin Dose 250 MG; Start 11/14/18 at 09:00 Fludrocortisone Acetate (Florinef) 0.05 mg MONWEDFRI PO Last administered on 11/15/18 09:03; Admin Dose 0.05 MG; Start 11/15/18 at 09:00 Hydrocortisone (Solu-Cortef) 20 mg QAM IV Last administered on 11/18/18 09:18; Admin Dose 20 MG; Start 11/14/18 at 14:30 Hydrocortisone (Solu-Cortef) 10 mg PC DINNER IV Last administered on 11/17/18 19:35; Admin Dose 10 MG; Start 11/14/18 at 19:00 Pantoprazole (Protonix Tab) 40 mg DAILY@06 PO Last administered on 11/17/18 05:40; Admin Dose 40 MG; Start 11/16/18 at 06:00 Sodium Chloride 1,000 ml @ 50 mls/hr Q20H IV Last administered on 11/18/18 09:23; Admin Dose 50 MLS/HR; Start 11/17/18 at 13:30 SAM SHARMA MD Nov 18, 2018 15:56
[2018-11-18 19:43] VITALS: BP 114/77; PULSE 91; RESP 20
[2018-11-19 01:19] VITALS: BP 123/69; PULSE 74; RESP 20
[2018-11-19] MEDS: PANTOPRAZOLE (EC) 40 MG TAB PO SCH (05:07)
[2018-11-19] MEDS: LEVOTHYROXINE 100 MCG VIAL IV SCH (05:08)
[2018-11-19] MEDS: SOD CHLORIDE 0.9% 1,000 ML IV SCH (05:14)
[2018-11-19] MEDS: ENOXAPARIN 40 MG/0.4 ML SYG SC SCH (09:00)
[2018-11-19] MEDS: OLANZAPINE 5 MG TAB PO SCH ×2 (09:55→20:37)
[2018-11-19] MEDS: BENZTROPINE 1 MG TAB PO SCH ×2 (09:55→20:37)
[2018-11-19] MEDS: DOCUSATE SODIUM 250 MG CAP PO SCH (09:55)
[2018-11-19] MEDS: DIVALPROEX (EC) 500 MG TAB PO SCH ×2 (09:55→20:37)
[2018-11-19] MEDS: HYDROCORTISONE 100 MG INJ IV SCH ×2 (09:56→18:14)
--- NOTE | 2018-11-19 12:33 | CONS ---
Consultation Date/Type/Reason Admit Date/Time Nov 07, 2018 at 22:29 Initial Consult Date SUBJECTIVE: Pt is awake, alert, afebrile. Vs: stable T: 98.0 LABS: Reviewed. MICROBIOLOGY: Urine culture grew yeast, not Antonieta albicans. Blood cultures r emain negative ANTBX: Off of antbx. Physical examination: GEN: Chronically ill-appearing middle-aged man in no distress HENT: head atraumatic normocephalic, neck is supple PULM: chest rise symmetrical breath sounds diminished bases Heart S1-S2 Abdomen distended, bowel sounds present Extremities with bilateral lower extremities edema Assessment: 1. S/p sepsis, present on admission 2. S/p pneumonia and urinary tract infection 3. Acute renal failure, possibly retention 4. Schizophrenia 5. Mental retardation 6. Medical noncompliance Plan: Pt is gradually improving. No fevers over night and today. Patient refused Ramirez insertion. Will monitor. Requesting Provider: VESNA SERNA MD Date/Time of Note DATE: 11/19/18 TIME: 12:27 Exam/Review of Systems Exam Vitals Vital Signs Date Temp Pulse Resp B/P (MAP) Pulse Ox O2 O2 Flow FiO2 Time Delivery Rate 11/19/18 98.0 74 20 123/69 95 01:19 (87) 11/16/18 Room Air 14:00 Intake and Output 11/18/18 11/18/18 11/19/18 1515:00 23:00 07:00 IntakeIntake Total 1000 ml 1000 ml BalanceBalance 1000 ml 1000 ml Results Result Diagram: 11/16/18 1421 11/18/18 1411 Results 24hrs Laboratory Tests Test 11/18/18 14:11 Sodium Level 145 H Potassium Level 3.6 Chloride Level 110 Carbon Dioxide Level 25 Anion Gap 10 # Blood Urea Nitrogen 17 Creatinine 1.94 H Est Glomerular Filtrat Rate mL/min 39 L Glucose Level 98 Calcium Level 9.1 Medications Medication Current Medications Benztropine Mesylate (Cogentin) 1 mg BID PO Last administered on 11/19/18at 09:55; Admin Dose 1 MG; Start 11/08/18 at 09:00 Divalproex Sodium (Depakote) 500 mg BID PO Last administered on 11/19/18at 09:55; Admin Dose 500 MG; Start 11/08/18 at 09:00 Acetaminophen (Tylenol Tab) 650 mg Q6H PRN PO MILD PAIN(1-3)OR ELEVATED TEMP Last administered on 11/17/18 20:13; Admin Dose 650 MG; Start 11/07/18 at 23:30 Ondansetron HCl (Zofran Inj) 4 mg Q6H PRN IV NAUSEA AND/OR VOMITING Last administered on 11/10/18 13:04; Admin Dose 4 MG; Start 11/07/18 at 23:30 Olanzapine (Zyprexa) 15 mg BID PO Last administered on 11/19/18 09:55; Admin Dose 15 MG; Start 11/08/18 at 21:00 Chlorpromazine (Thorazine) 50 mg Q6 PRN IM AGITATION Last administered on 11/12/18 10:32; Admin Dose 50 MG; Start 11/08/18 at 16:00 Levothyroxine Sodium (Synthroid Iv) 50 mcg DAILY@06 IV Last administered on 11/19/18 05:08; Admin Dose 50 MCG; Start 11/12/18 at 06:00 Enoxaparin Sodium (Lovenox) 40 mg DAILY SC Last administered on 11/13/18 10:08; Admin Dose 40 MG; Start 11/12/18 at 09:30 Docusate Sodium (Colace) 250 mg DAILY PO Last administered on 11/19/18 09:55; Admin Dose 250 MG; Start 11/14/18 at 09:00 Fludrocortisone Acetate (Florinef) 0.05 mg MONWEDFRI PO Last administered on 11/15/18 09:03; Admin Dose 0.05 MG; Start 11/15/18 at 09:00 Hydrocortisone (Solu-Cortef) 20 mg QAM IV Last administered on 11/19/18 09:56; Admin Dose 20 MG; Start 11/14/18 at 14:30 Hydrocortisone (Solu-Cortef) 10 mg PC DINNER IV Last administered on 11/18/18 20:48; Admin Dose 10 MG; Start 11/14/18 at 19:00 Pantoprazole (Protonix Tab) 40 mg DAILY@06 PO Last administered on 11/17/18 05:40; Admin Dose 40 MG; Start 11/16/18 at 06:00 Sodium Chloride 1,000 ml @ 50 mls/hr Q20H IV Last administered on 11/19/18at 05:14; Admin Dose 50 MLS/HR; Start 11/17/18 at 13:30 SHAINA MAHARAJ Nov 19, 2018 12:33
--- NOTE | 2018-11-19 12:51 | CONS ---
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 Comment: Stable on therapy Consultation Date/Type/Reason Admit Date/Time Nov 07, 2018 at 22:29 Initial Consult Date 11/12/18 Type of Consult Endocrinology Reason for Consultation Hypothyroidism; adrenal insufficiency Requesting Provider: VESNA SERNA MD Date/Time of Note DATE: 11/19/18 TIME: 12:50 24 HR Interval Summary Free Text/Dictation Patient without new complaints Detailed Summary Endocrine: no complaints Exam/Review of Systems Exam Vitals Vital Signs Date Temp Pulse Resp B/P (MAP) Pulse Ox O2 O2 Flow FiO2 Time Delivery Rate 11/19/18 98.0 74 20 123/69 95 01:19 (87) 11/16/18 Room Air 14:00 Intake and Output 11/18/18 11/18/18 11/19/18 1515:00 23:00 07:00 IntakeIntake Total 1000 ml 1000 ml BalanceBalance 1000 ml 1000 ml Exam No change in exam Results Result Diagram: 11/16/18 1421 11/18/18 1411 Results 24hrs Laboratory Tests Test 11/18/18 14:11 Sodium Level 145 H Potassium Level 3.6 Chloride Level 110 Carbon Dioxide Level 25 Anion Gap 10 # Blood Urea Nitrogen 17 Creatinine 1.94 H Est Glomerular Filtrat Rate mL/min 39 L Glucose Level 98 Calcium Level 9.1 Medications Medication Current Medications Benztropine Mesylate (Cogentin) 1 mg BID PO Last administered on 11/19/18 09:55; Admin Dose 1 MG; Start 11/08/18 at 09:00 Divalproex Sodium (Depakote) 500 mg BID PO Last administered on 11/19/18 09:55; Admin Dose 500 MG; Start 11/08/18 at 09:00 Acetaminophen (Tylenol Tab) 650 mg Q6H PRN PO MILD PAIN(1-3)OR ELEVATED TEMP Last administered on 11/17/18 20:13; Admin Dose 650 MG; Start 11/07/18 at 23:30 Ondansetron HCl (Zofran Inj) 4 mg Q6H PRN IV NAUSEA AND/OR VOMITING Last administered on 11/10/18 13:04; Admin Dose 4 MG; Start 11/07/18 at 23:30 Olanzapine (Zyprexa) 15 mg BID PO Last administered on 11/19/18 09:55; Admin Dose 15 MG; Start 11/08/18 at 21:00 Chlorpromazine (Thorazine) 50 mg Q6 PRN IM AGITATION Last administered on 11/12/18 10:32; Admin Dose 50 MG; Start 11/08/18 at 16:00 Levothyroxine Sodium (Synthroid Iv) 50 mcg DAILY@06 IV Last administered on 11/19/18 05:08; Admin Dose 50 MCG; Start 11/12/18 at 06:00 Enoxaparin Sodium (Lovenox) 40 mg DAILY SC Last administered on 11/13/18 10:08; Admin Dose 40 MG; Start 11/12/18 at 09:30 Docusate Sodium (Colace) 250 mg DAILY PO Last administered on 11/19/18 09:55; Admin Dose 250 MG; Start 11/14/18 at 09:00 Fludrocortisone Acetate (Florinef) 0.05 mg MONWEDFRI PO Last administered on 11/15/18 09:03; Admin Dose 0.05 MG; Start 11/15/18 at 09:00 Hydrocortisone (Solu-Cortef) 20 mg QAM IV Last administered on 11/19/18 09:56; Admin Dose 20 MG; Start 11/14/18 at 14:30 Hydrocortisone (Solu-Cortef) 10 mg PC DINNER IV Last administered on 11/18/18 20:48; Admin Dose 10 MG; Start 11/14/18 at 19:00 Pantoprazole (Protonix Tab) 40 mg DAILY@06 PO Last administered on 11/17/18 05:40; Admin Dose 40 MG; Start 11/16/18 at 06:00 Sodium Chloride 1,000 ml @ 50 mls/hr Q20H IV Last administered on 11/19/18 05:14; Admin Dose 50 MLS/HR; Start 11/17/18 at 13:30 SAM SHARMA MD Nov 19, 2018 12:51
[2018-11-19 14:41] VITALS: BP 148/96; PULSE 100; RESP 18
--- NOTE | 2018-11-19 17:34 | PN ---
Date/Time of Note Date/Time of Note DATE: 11/19/18 TIME: 17:32 Assessment/Plan VTE Prophylaxis Risk score (from Ns)>0 risk: 1 SCD applied (from [facility] [place]): Yes SCD contraindicated: other Pharmacological prophylaxis: other Pharm contraindication: other Lines/Catheters IV C[facility]ter Type (from [facility] Mid Line Urinary Cath still in place: No Assessment/Plan Hospital Course 1. s/p sepsis 2. Leukocytosis> improved. 3. Acute renal failure, better 4. anxiety 5. Metabolic acidosis. 6. History of schizophrenia. 7. History of developmental delay. 8. Mental retardation. 9. HX Hebron disease 10 Hypernatremia likely hypovolemic /on fludricortisone 11 Hypokalemia with diarrhoea, resolved 12.Obesity 13. Non compliance 14. Anemia plan ck labs Result Diagram: 11/16/18 1421 11/18/18 1411 Subjective 24 Hr Interval Summary Respiratory: no complaints Cardiovascular: no complaints Gastrointestinal: no complaints Exam/Review of Systems Exam Vitals Vital Signs Date Temp Pulse Resp B/P (MAP) Pulse Ox O2 O2 Flow FiO2 Time Delivery Rate 11/19/18 98.4 100 18 148/96 95 14:41 (113) 11/16/18 Room Air 14:00 Intake and Output 11/18/18 11/18/18 11/19/18 1515:00 23:00 07:00 IntakeIntake Total 1000 ml 1000 ml BalanceBalance 1000 ml 1000 ml Respiratory: clear to auscultation Cardiovascular: regular rate and rhythm Gastrointestinal: soft, bowel sounds Medications Medication Current Medications Benztropine Mesylate (Cogentin) 1 mg BID PO Last administered on 11/19/18at 09:55; Admin Dose 1 MG; Start 11/08/18 at 09:00 Divalproex Sodium (Depakote) 500 mg BID PO Last administered on 11/19/18at 09:55; Admin Dose 500 MG; Start 11/08/18 at 09:00 Acetaminophen (Tylenol Tab) 650 mg Q6H PRN PO MILD PAIN(1-3)OR ELEVATED TEMP Last administered on 11/17/18at 20:13; Admin Dose 650 MG; Start 11/07/18 at 23:30 Ondansetron HCl (Zofran Inj) 4 mg Q6H PRN IV NAUSEA AND/OR VOMITING Last administered on 11/10/18 13:04; Admin Dose 4 MG; Start 11/07/18 at 23:30 Olanzapine (Zyprexa) 15 mg BID PO Last administered on 11/19/18 09:55; Admin Dose 15 MG; Start 11/08/18 at 21:00 Chlorpromazine (Thorazine) 50 mg Q6 PRN IM AGITATION Last administered on 11/12/18 10:32; Admin Dose 50 MG; Start 11/08/18 at 16:00 Levothyroxine Sodium (Synthroid Iv) 50 mcg DAILY@06 IV Last administered on 11/19/18 05:08; Admin Dose 50 MCG; Start 11/12/18 at 06:00 Enoxaparin Sodium (Lovenox) 40 mg DAILY SC Last administered on 11/13/18 10:08; Admin Dose 40 MG; Start 11/12/18 at 09:30 Docusate Sodium (Colace) 250 mg DAILY PO Last administered on 11/19/18 09:55; Admin Dose 250 MG; Start 11/14/18 at 09:00 Fludrocortisone Acetate (Florinef) 0.05 mg MONWEDFRI PO Last administered on 11/15/18 09:03; Admin Dose 0.05 MG; Start 11/15/18 at 09:00 Hydrocortisone (Solu-Cortef) 20 mg QAM IV Last administered on 11/19/18 09:56; Admin Dose 20 MG; Start 11/14/18 at 14:30 Hydrocortisone (Solu-Cortef) 10 mg PC DINNER IV Last administered on 11/18/18 20:48; Admin Dose 10 MG; Start 11/14/18 at 19:00 Pantoprazole (Protonix Tab) 40 mg DAILY@06 PO Last administered on 11/17/18 05:40; Admin Dose 40 MG; Start 11/16/18 at 06:00 Sodium Chloride 1,000 ml @ 50 mls/hr Q20H IV Last administered on 11/19/18 05:14; Admin Dose 50 MLS/HR; Start 11/17/18 at 13:30 MELVA MARX MD Nov 19, 2018 17:34
[2018-11-19 19:38] VITALS: BP 116/73; PULSE 84; RESP 17
[2018-11-20] MEDS: SOD CHLORIDE 0.9% 1,000 ML IV SCH ×2 (01:34→20:27)
[2018-11-20 02:55] VITALS: BP 129/79; PULSE 79; RESP 18
[2018-11-20] MEDS: PANTOPRAZOLE (EC) 40 MG TAB PO SCH ×2 (05:32→06:00)
[2018-11-20] MEDS: LEVOTHYROXINE 100 MCG VIAL IV SCH (05:32)
[2018-11-20 07:45] VITALS: BP 133/90; PULSE 75; RESP 16
[2018-11-20] MEDS: HYDROCORTISONE 100 MG INJ IV SCH (09:17)
[2018-11-20] MEDS: OLANZAPINE 5 MG TAB PO SCH ×2 (09:19→20:25)
[2018-11-20] MEDS: DIVALPROEX (EC) 500 MG TAB PO SCH ×2 (09:19→20:26)
[2018-11-20] MEDS: DOCUSATE SODIUM 250 MG CAP PO SCH (09:19)
[2018-11-20] MEDS: BENZTROPINE 1 MG TAB PO SCH ×2 (09:20→20:25)
[2018-11-20] MEDS: ENOXAPARIN 40 MG/0.4 ML SYG SC SCH (09:26)
[2018-11-20] MEDS: FLUDROCORTISONE 0.1 MG TAB PO SCH (09:30)
[2018-11-20 14:19] VITALS: BP 133/64; RESP 16
--- NOTE | 2018-11-20 14:32 | PN ---
Date/Time of Note Date/Time of Note DATE: 11/20/18 TIME: 14:30 Assessment/Plan VTE Prophylaxis Risk score (from Ns)>0 risk: 1 SCD applied (from [facility] [place]): No SCD contraindicated: low risk/ambulating Pharmacological prophylaxis: NA/contraindicated Pharm contraindication: low risk/ambulating Lines/Catheters IV Catheter Type (from [facility]): Mid Line Urinary Cath still in place: No Assessment/Plan Hospital Course 38-year-old male with: 1. Hypotension, tachycardia, could be secondary to sepsis secondary to urinary tract infection,/pneumonia 2. Leukocytosis> improved. 3. Acute renal failure, likely secondary to combination of obstruction since the patient has not urinated/combination of prerenal/post the patient was given antibiotic, vancomycin and Zosyn.Cr stable Likely ATN /sepsis, creatinine is down trending 4. Hypokalemia. 5. Metabolic acidosis. 6. History of schizophrenia. 7. History of developmental delay. 8. Mental retardation. 9 HX ariadna 10 Hypernatremia likely hypovolemic /on fludricortisone 11 Hypokalemia with diarrhoea resolved Plan - Off abx -encourage to use the urinal - CW Fludricortisone/hydrocortisone per Endo > will switch to p.o. - bld cx neg so far -cw levotyhroxine -cw with the olanzapine/Cogentin/ thorazine per psych GI/DVT PROPHYLAXSIS DC planning pending labs Result Diagram: 11/16/18 1421 11/18/18 1411 Subjective 24 Hr Interval Summary Free Text/Dictation Doing better. Good mood Off antibiotics Exam/Review of Systems Exam Vitals Vital Signs Date Temp Pulse Resp B/P (MAP) Pulse Ox O2 O2 Flow FiO2 Time Delivery Rate 11/20/18 97.7 16 133/64 98 Room Air 14:19 (87) 11/20/18 75 07:45 Intake and Output 11/19/18 11/19/18 11/20/18 1414:59 22:59 06:59 IntakeIntake Total 600 ml 650 ml OutputOutput Total 550 ml BalanceBalance -550 ml 600 ml 650 ml Exam Constitutional: alert, oriented Eyes: nl conjunctiva ENMT: nl external ears & nose Cardiovascular: regular rate and rhythm Gastrointestinal: soft Medications Medication Current Medications Benztropine Mesylate (Cogentin) 1 mg BID PO Last administered on 3/11/19at 09:20; Admin Dose 1 MG; Start 11/08/18 at 09:00 Divalproex Sodium (Depakote) 500 mg BID PO Last administered on 11/20/18 09:19; Admin Dose 500 MG; Start 11/08/18 at 09:00 Acetaminophen (Tylenol Tab) 650 mg Q6H PRN PO MILD PAIN(1-3)OR ELEVATED TEMP Last administered on 11/17/18 20:13; Admin Dose 650 MG; Start 11/07/18 at 23:30 Ondansetron HCl (Zofran Inj) 4 mg Q6H PRN IV NAUSEA AND/OR VOMITING Last administered on 11/10/18 13:04; Admin Dose 4 MG; Start 11/07/18 at 23:30 Olanzapine (Zyprexa) 15 mg BID PO Last administered on 11/20/18 09:19; Admin Dose 15 MG; Start 11/08/18 at 21:00 Chlorpromazine (Thorazine) 50 mg Q6 PRN IM AGITATION Last administered on 11/12/18 10:32; Admin Dose 50 MG; Start 11/08/18 at 16:00 Enoxaparin Sodium (Lovenox) 40 mg DAILY SC Last administered on 11/20/18 09:26; Admin Dose 40 MG; Start 11/12/18 at 09:30 Docusate Sodium (Colace) 250 mg DAILY PO Last administered on 11/20/18 09:19; Admin Dose 250 MG; Start 11/14/18 at 09:00 Fludrocortisone Acetate (Florinef) 0.05 mg MONWEDFRI PO Last administered on 11/20/18 09:30; Admin Dose 0.05 MG; Start 11/15/18 at 09:00 Pantoprazole (Protonix Tab) 40 mg DAILY@06 PO Last administered on 11/17/18 05:40; Admin Dose 40 MG; Start 11/16/18 at 06:00 Sodium Chloride 1,000 ml @ 50 mls/hr Q20H IV Last administered on 11/20/18 01 :34; Admin Dose 50 MLS/HR; Start 11/17/18 at 13:30 Levothyroxine Sodium (Synthroid) 50 mcg DAILY@06 PO ; Start 11/21/18 at 06:00; Status UNV Prednisone (Prednisone) 3.5 mg AM PO ; Start 11/21/18 at 09:00; Status UNV Prednisone (Prednisone) 1.5 mg PC DINNER PO ; Start 11/20/18 at 19:00; Status UNV VESNA SERNA MD Nov 20, 2018 14:32
--- NOTE | 2018-11-20 14:38 | CONS ---
Assessment/Plan Assessment/Plan Problems: (1) Adrenal insufficiency Status: Chronic Comment: Notified by primary team that pt. is ready for d/c. Will change hydrocortisone back to home corticosteroid replacement. Instead of taking all prednisone in the morning as pt. was taking before, would take 3.5 mg qam and 1.5 mg qpm. Cont. fludricortisone as is taking now. Should be stable for d/c. 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 LT4 daily after d/c. Consultation Date/Type/Reason Admit Date/Time Nov 07, 2018 at 22:29 Initial Consult Date 11/10/18 Type of Consult Endocrinology Reason for Consultation Adrenal insufficiency Requesting Provider: VESNA SERNA MD Date/Time of Note DATE: 11/20/18 TIME: 14:36 24 HR Interval Summary Constitutional: no complaints, improved Exam/Review of Systems Exam Vitals Vital Signs Date Temp Pulse Resp B/P (MAP) Pulse Ox O2 O2 Flow FiO2 Time Delivery Rate 11/20/18 97.7 16 133/64 98 Room Air 14:19 (87) 11/20/18 75 07:45 Intake and Output 11/19/18 11/19/18 11/20/18 1414:59 22:59 06:59 IntakeIntake Total 600 ml 650 ml OutputOutput Total 550 ml BalanceBalance -550 ml 600 ml 650 ml Constitutional: alert, oriented, well developed Psych: no complaints, nl mood/affect Respiratory: clear to auscultation, normal air movement Cardiovascular: regular rate and rhythm, nl pulses; No edema, No murmurs/extra sounds, No rub Gastrointestinal: soft, nl liver, spleen, non-tender, bowel sounds; No mass, No rebound or guarding Musculoskeletal: nl extremities to inspection Extremities: normal pulses; No cyanosis, No clubbing, No edema Neurological: CAREGIVERS NON MEDICAL II-XII intact, nl mental status, nl speech, nl strength Results Result Diagram: 11/16/18 1421 11/18/18 1411 Medications Medication Current Medications Benztropine Mesylate (Cogentin) 1 mg BID PO Last administered on 11/20/18at 09:20; Admin Dose 1 MG; Start 11/08/18 at 09:00 Divalproex Sodium (Depakote) 500 mg BID PO Last administered on 11/20/18 09:19; Admin Dose 500 MG; Start 11/08/18 at 09:00 Acetaminophen (Tylenol Tab) 650 mg Q6H PRN PO MILD PAIN(1-3)OR ELEVATED TEMP Last administered on 11/17/18 20:13; Admin Dose 650 MG; Start 11/07/18 at 23:30 Ondansetron HCl (Zofran Inj) 4 mg Q6H PRN IV NAUSEA AND/OR VOMITING Last administered on 11/10/18 13:04; Admin Dose 4 MG; Start 11/07/18 at 23:30 Olanzapine (Zyprexa) 15 mg BID PO Last administered on 11/20/18 09:19; Admin Dose 15 MG; Start 11/08/18 at 21:00 Chlorpromazine (Thorazine) 50 mg Q6 PRN IM AGITATION Last administered on 11/12/18 10:32; Admin Dose 50 MG; Start 11/08/18 at 16:00 Enoxaparin Sodium (Lovenox) 40 mg DAILY SC Last administered on 11/20/18 09:26; Admin Dose 40 MG; Start 11/12/18 at 09:30 Docusate Sodium (Colace) 250 mg DAILY PO Last administered on 11/20/18 09:19; Admin Dose 250 MG; Start 11/14/18 at 09:00 Fludrocortisone Acetate (Florinef) 0.05 mg MONWEDFRI PO Last administered on 11/20/18 09:30; Admin Dose 0.05 MG; Start 11/15/18 at 09:00 Pantoprazole (Protonix Tab) 40 mg DAILY@06 PO Last administered on 11/17/18 05:40; Admin Dose 40 MG; Start 11/16/18 at 06:00 Sodium Chloride 1,000 ml @ 50 mls/hr Q20H IV Last administered on 11/20/18 01:34; Admin Dose 50 MLS/HR; Start 11/17/18 at 13:30 Levothyroxine Sodium (Synthroid) 50 mcg DAILY@06 PO ; Start 11/21/18 at 06:00 Prednisone (Prednisone) 3.5 mg AM PO ; Start 11/21/18 at 09:00 Prednisone (Prednisone) 1.5 mg PC DINNER PO ; Start 11/20/18 at 19:00 RIP TOSCANO MD Nov 20, 2018 14:38
[2018-11-20] MEDS ORDERED: predniSONE 1 MG TAB PO SCH (19:00)
[2018-11-20 19:21] VITALS: BP 118/71; PULSE 96; RESP 16
--- NOTE | 2018-11-20 19:56 | CONS ---
Assessment/Plan Assessment/Plan Hospital Course (Demo Recall) No acute events overnight patient is awake, looks comfortable, no fevers Urine culture grew yeast, not Antonieta albicans. Blood cultures remain negative Physical examination: Chronically ill-appearing middle-aged man in no distress head atraumatic normocephalic neck is supple chest rise symmetrical breath sounds diminished bases heart S1-S2 abdomen distended, bowel sounds present extremities with bilateral lower extremities edema Assessment: 1. S/p sepsis, present on admission 2. S/p pneumonia and urinary tract infection 3. Acute renal failure, possibly retention 4. Schizophrenia 5. Mental retardation 6. Medical noncompliance Plan: Stable off abx, pending dc DW RN Consultation Date/Type/Reason Admit Date/Time Nov 07, 2018 at 22:29 Initial Consult Date Type of Consult id Requesting Provider: VESNA SERNA MD Date/Time of Note DATE: 11/20/18 TIME: 19:56 Exam/Review of Systems Exam Vitals Vital Signs Date Temp Pulse Resp B/P (MAP) Pulse Ox O2 O2 Flow FiO2 Time Delivery Rate 11/20/18 97.5 96 16 118/71 99 19:21 (87) 11/20/18 Room Air 14:19 Intake and Output 11/19/18 11/19/18 11/20/18 1515:00 23:00 07:00 IntakeIntake Total 600 ml 650 ml OutputOutput Total 550 ml BalanceBalance -550 ml 600 ml 650 ml Results Result Diagram: 11/16/18 1421 11/18/18 1411 Medications Medication Current Medications Benztropine Mesylate (Cogentin) 1 mg BID PO Last administered on 11/20/18at 09:20; Admin Dose 1 MG; Start 11/08/18 at 09:00 Divalproex Sodium (Depakote) 500 mg BID PO Last administered on 11/20/18at 09:19; Admin Dose 500 MG; Start 11/08/18 at 09:00 Acetaminophen (Tylenol Tab) 650 mg Q6H PRN PO MILD PAIN(1-3)OR ELEVATED TEMP Last administered on 11/17/18at 20:13; Admin Dose 650 MG; Start 11/07/18 at 23:30 Ondansetron HCl (Zofran Inj) 4 mg Q6H PRN IV NAUSEA AND/OR VOMITING Last administered on 11/10/18at 13:04; Admin Dose 4 MG; Start 11/07/18 at 23:30 Olanzapine (Zyprexa) 15 mg BID PO Last administered on 11/20/18 09:19; Admin Dose 15 MG; Start 11/08/18 at 21:00 Chlorpromazine (Thorazine) 50 mg Q6 PRN IM AGITATION Last administered on 11/12/18 10:32; Admin Dose 50 MG; Start 11/08/18 at 16:00 Enoxaparin Sodium (Lovenox) 40 mg DAILY SC Last administered on 11/20/18 09:26; Admin Dose 40 MG; Start 11/12/18 at 09:30 Docusate Sodium (Colace) 250 mg DAILY PO Last administered on 11/20/18 09:19; Admin Dose 250 MG; Start 11/14/18 at 09:00 Fludrocortisone Acetate (Florinef) 0.05 mg MONWEDFRI PO Last administered on 11/20/18 09:30; Admin Dose 0.05 MG; Start 11/15/18 at 09:00 Pantoprazole (Protonix Tab) 40 mg DAILY@06 PO Last administered on 11/17/18 05:40; Admin Dose 40 MG; Start 11/16/18 at 06:00 Sodium Chloride 1,000 ml @ 50 mls/hr Q20H IV Last administered on 11/20/18 01:34; Admin Dose 50 MLS/HR; Start 11/17/18 at 13:30 Levothyroxine Sodium (Synthroid) 50 mcg DAILY@06 PO ; Start 11/21/18 at 06:00 Prednisone (Prednisone) 3.5 mg AM PO ; Start 11/21/18 at 09:00 Prednisone (Prednisone) 1.5 mg PC DINNER PO Last administered on 11/20/18 18:15; Admin Dose 1.5 MG; Start 11/20/18 at 19:00 RENO KAYE NP Nov 20, 2018 19:56
[2018-11-21 02:00] VITALS: BP 114/70; PULSE 80; RESP 16
[2018-11-21] MEDS ORDERED: LEVOTHYROXINE 50 MCG TAB PO SCH (06:00)
[2018-11-21] MEDS: PANTOPRAZOLE (EC) 40 MG TAB PO SCH (06:03)
[2018-11-21] MEDS: DOCUSATE SODIUM 250 MG CAP PO SCH (08:58)
[2018-11-21] MEDS: OLANZAPINE 5 MG TAB PO SCH (08:58)
[2018-11-21] MEDS: BENZTROPINE 1 MG TAB PO SCH (08:58)
[2018-11-21] MEDS: DIVALPROEX (EC) 500 MG TAB PO SCH (08:58)
[2018-11-21] MEDS ORDERED: predniSONE 1 MG TAB PO SCH (09:00)
[2018-11-21] MEDS: ENOXAPARIN 40 MG/0.4 ML SYG SC SCH (09:14)
[2018-11-21] MEDS ORDERED: POTASSIUM CHLORIDE (SR) 20 MEQ TAB PO STA (09:53)
[2018-11-21] MEDS ORDERED: POTASSIUM CHLORIDE 20 MEQ POWDER FOR ORAL SOLN PO ONE (10:30)
--- NOTE | 2018-11-21 13:44 | CONS ---
Assessment/Plan Assessment/Plan Hospital Course (Demo Recall) No acute events overnight, no fevers Urine culture grew yeast, not Antonieta albicans. Blood cultures remain negative Physical examination: Chronically ill-appearing middle-aged man in no distress head atraumatic normocephalic neck is supple chest rise symmetrical breath sounds diminished bases heart S1-S2 abdomen distended, bowel sounds present extremities with bilateral lower extremities edema Assessment: 1. S/p sepsis, present on admission 2. S/p pneumonia and urinary tract infection 3. Acute renal failure, possibly retention 4. Schizophrenia 5. Mental retardation 6. Medical noncompliance Plan: Stable off abx, dc planning in progress Consultation Date/Type/Reason Admit Date/Time Nov 07, 2018 at 22:29 Initial Consult Date Type of Consult id Requesting Provider: VESNA SERNA MD Date/Time of Note DATE: 11/21/18 TIME: 13:44 Exam/Review of Systems Exam Vitals Vital Signs Date Temp Pulse Resp B/P (MAP) Pulse Ox O2 O2 Flow FiO2 Time Delivery Rate 11/21/18 98.5 80 16 114/70 99 02:00 (85) 11/20/18 Room Air 14:19 Intake and Output 11/20/18 11/20/18 11/21/18 1515:00 23:00 07:00 IntakeIntake Total 240 ml 1110 ml 650 ml OutputOutput Total 650 ml 800 ml 800 ml BalanceBalance -410 ml 310 ml -150 ml Results Result Diagram: 11/21/18 0559 Results 24hrs Laboratory Tests Test 11/21/18 05:59 Sodium Level 148 H Potassium Level 3.2 L Chloride Level 112 H Carbon Dioxide Level 27 Anion Gap 9 Blood Urea Nitrogen 13 Creatinine 1.78 H Est Glomerular Filtrat Rate mL/min 43 L Glucose Level 93 Calcium Level 8.7 Medications Medication Current Medications Benztropine Mesylate (Cogentin) 1 mg BID PO Last administered on 11/21/18at 08:58; Admin Dose 1 MG; Start 11/08/18 at 09:00 Divalproex Sodium (Depakote) 500 mg BID PO Last administered on 11/21/18 08:58; Admin Dose 500 MG; Start 11/08/18 at 09:00 Acetaminophen (Tylenol Tab) 650 mg Q6H PRN PO MILD PAIN(1-3)OR ELEVATED TEMP L ast administered on 11/17/18 20:13; Admin Dose 650 MG; Start 11/07/18 at 23:30 Ondansetron HCl (Zofran Inj) 4 mg Q6H PRN IV NAUSEA AND/OR VOMITING Last administered on 11/10/18 13:04; Admin Dose 4 MG; Start 11/07/18 at 23:30 Olanzapine (Zyprexa) 15 mg BID PO Last administered on 11/21/18 08:58; Admin Dose 15 MG; Start 11/08/18 at 21:00 Chlorpromazine (Thorazine) 50 mg Q6 PRN IM AGITATION Last administered on 11/12/18 10:32; Admin Dose 50 MG; Start 11/08/18 at 16:00 Enoxaparin Sodium (Lovenox) 40 mg DAILY SC Last administered on 11/21/18 09:14; Admin Dose 40 MG; Start 11/12/18 at 09:30 Docusate Sodium (Colace) 250 mg DAILY PO Last administered on 11/21/18 08:58; Admin Dose 250 MG; Start 11/14/18 at 09:00 Fludrocortisone Acetate (Florinef) 0.05 mg MONWEDFRI PO Last administered on 11/20/18 09:30; Admin Dose 0.05 MG; Start 11/15/18 at 09:00 Pantoprazole (Protonix Tab) 40 mg DAILY@06 PO Last administered on 11/21/18 06:03; Admin Dose 40 MG; Start 11/16/18 at 06:00 Levothyroxine Sodium (Synthroid) 50 mcg DAILY@06 PO Last administered on 11/21/18 06:03; Admin Dose 50 MCG; Start 11/21/18 at 06:00 Prednisone (Prednisone) 3.5 mg AM PO Last administered on 11/21/18 08:59; Admin Dose 3.5 MG; Start 11/21/18 at 09:00 Prednisone (Prednisone) 1.5 mg PC DINNER PO Last administered on 11/20/18 18:15; Admin Dose 1.5 MG; Start 11/20/18 at 19:00 RENO KAYE NP Nov 21, 2018 13:44
[2018-11-21 14:00] VITALS: BP 133/94; PULSE 101; RESP 18
--- NOTE | 2018-11-21 14:40 | PDOCDIS ---
Discharge Instructions DIAGNOSIS Discharge Diagnosis Sepsis NAOMI CONDITION [id number] Patient Condition: [id number] Fair HOME CARE INSTRUCTIONS: [id number] Diet Instructions: [id number] Regular ACTIVITY: [id number] Activity Restrictions: [id number] Slowly Increase Activity Rest between Activity Avoid heavy lifting FOLLOW UP/APPOINTMENTS Follow-up Plan FU With PCP 1-2 weeks Follow with nephrology 1-2 weeks Patient encouraged to use the urinal Return to ER if he has severe nausea vomiting urinary retention fevers and chills VESNA SERNA MD Nov 21, 2018 14:40
[2018-11-21] MEDS ORDERED: LEVO50TA7 PO (14:43)
[2018-11-21] MEDS ORDERED: FLO1 PO (14:43)
[2018-11-21] MEDS ORDERED: PRED1TAB17 PO ×2 (14:43)
--- NOTE | 2018-11-21 14:44 | PDOCDIS ---
Discharge Instructions DIAGNOSIS Discharge Diagnosis Sepsis NAOMI CONDITION [id number] Patient Condition: Nzhee5i Fair HOME CARE INSTRUCTIONS: [id number] Diet Instructions: [id number] Regular ACTIVITY: [id number] Activity Restrictions: [id number] Slowly Increase Activity Rest between Activity Avoid heavy lifting FOLLOW UP/APPOINTMENTS Follow-up Plan FU With PCP 1-2 weeks Follow with nephrology 1-2 weeks fu With endocrine in 1-2 weeks Patient encouraged to use the urinal Return to ER if he has severe nausea vomiting urinary retention fevers and chills VESNA SERNA MD Nov 21, 2018 14:44
--- NOTE | 2018-11-21 17:04 | DS ---
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 The patient was discharged home with p.o. antibioti cs; however the patient returned to [facility]. He was tachycardic, low blood pressure, con cern for the patient has addisonian crisis. The patient was treated with hydrocortisone. Blood pres sure was stabilized. The patient was also hypokalemic on admission and was transferred to [facility] due to insurance reasons. The patient was noted to have a creatinine of 1.16 on 11/06/2018 and received vancomycin and Zosyn. On admission, vital signs were stable; however the patient was v roberto hostile, refusing all medications. The patient was continued on fludrocortisone, prednisone and levothyroxine. Endocrine consultation was also requested and their recommendations were followed. I D was consulted, Dr. Bee and recommendations were followed. The patient had chest x-ray that show ed low lung volumes, bibasilar airspace opacities representing atelectasis or pneumonia. The patient also had an abdominal ultrasound, no ascites. The patient's cultures were sent. Urine cultures wer e positive for yeast, not Antonieta; however the colonies were less than 10,000. Blood cultures were s ent that were negative. The patient was intermittently spiking fevers. The patient was initially st arted on vancomycin and meropenem and Cancidas. The patient had been hostile and was refusing medica tions, had been refusing to urinate. The patient's mother was called and the patient was somehow con vinced to urinate. Dr. Francois was also called; however the patient was refusing Ramirez placement. C reatinine had peaked from 2.03 up to 3.40 during hospitalization stay. Vancomycin was also discontin ued. Creatinine came down to 1.78. The patient was afebrile for 24 to 48 hours. Antibiotics had be en discontinued per ID. The patient is stable to be discharged home per Dr. ____. The patient is st able to be discharged home. The patient was also seen by psych consultation and medications were anabella djusted. FINAL DISCHARGE DIAGNOSES: 1. Status post sepsis likely secondary to pneumonia and urinary tract infection. 2. Acute renal failure, possibly urinary retention/acute tubular necrosis, resolving. Creatinine tr ended down to 1.6. 3. Schizophrenia. 4. Mental retardation. 5. Noncompliance. 6. Adrenal insufficiency, chronic. 7. Testicular dysfunction. 8. Hypothyroidism due to Romina thyroiditis. 9. Metabolic acidosis. 10. Hypokalemia. DISCHARGE CONDITION: Stable. DISCHARGE MEDICATIONS: Continue with home medications which were: 1. Benztropine 1 mg p.o. b.i.d. 2. Valproate 500 b.i.d. 3. Colace. 4. Lactulose. 5. Olanzapine. 6. Testosterone gel. 7. New prescription of fludrocortisone was adjusted from 0.1 p.o. daily to 0.05 Tuesday, Tuesday, F . 8. Levothyroxine was changed from 75 to 50. 9. Prednisone was changed from 5 to 3.5 in a.m. and 1.5 in p.m. DISCHARGE INSTRUCTIONS: The patient was instructed to ____ to see if the patient can follow up with PCP 1 to 2 weeks, nephrology 1 to 2 weeks and also endocrinology 1 to 2 weeks. Dictated By: VESNA WOLF/MOOSE Conf#: [id number] DID#: [id number] CC: TABATHA FRANCOIS MD;*[facility]*
== END 2018-11-21 19:05 | disposition still patient (30) | DRG 871 ==
LOC: 6WM 22:29 → 5EC 11-08 17:19
PROVIDERS: ADMIT Internal Medicine; ATTEND Internal Medicine
DX: A41.9 Sepsis, unspecified organism (principal); J18.9 Pneumonia, unspecified organism; N17.0 Acute kidney failure with tubular necrosis; N39.0 Urinary tract infection, site not specified; E87.2 Acidosis; E87.0 Hyperosmolality and hypernatremia; E27.1 Primary adrenocortical insufficiency; E87.6 Hypokalemia; F79 Unspecified intellectual disabilities; F25.0 Schizoaffective disorder, bipolar type; E29.9 Testicular dysfunction, unspecified; E03.8 Other specified hypothyroidism; E66.9 Obesity, unspecified; Z91.19 Patient's noncompliance with other medical treatment and regimen; Z68.31 Body mass index [BMI] 31.0-31.9, adult
CPT/HCPCS: 71045; 76705; 80048; 80202; 81001; 83605; 83735; 84100; 84132; 84436; 84443; 84479; 85025; 85730; 87040; 87086; 97162; C9113; J1650; J1720; J2185; J2405; J3230; J3370; J3480; J7030; J7040; J7042; J7050; J7070; J7512